=== PATIENT | female | born 1960 | race Caucasian/White ===

== ENCOUNTER 2016-08-22 13:32 | Outpatient (CLI) | payer BC ==
[~2016-08-22 13:32] MED LIST changes: -ACET50TAOT PO; +ACETAMINOPHEN TAB 650MG DOSE (2X325MG) PO SCH; -FERR325T3 PO; -LIDO2.5C15 EXT; -PEG6SYR SC; -PROC10TA PO; -PROC1SP PR; -VITA-130 PO; -VITMTA PO; +diphenhydrAMINE 25 MG CAP PO SCH
[2016-08-22] MEDS ORDERED: SODIUM CHLORIDE 0.9% INJ 10 ML SYR IV PRN (20:45)
[2016-08-23] MEDS ORDERED: SODIUM CHLORIDE 0.9% INJ 10 ML SYR IV SCH (09:00)
== END 2016-08-22 21:17 | disposition home or self-care (01) ==
LOC: M OPCLI5PR 13:32 → M MS5PR 13:34 → M OPCLI5PR 21:17
PROVIDERS: ATTEND Internal Medicine Medical Oncology
DX: C50.919 Malignant neoplasm of unspecified site of unspecified female breast (principal)
CPT/HCPCS: 36430; P9016

== ENCOUNTER → 2016-08-22 | Outpatient (REF) | payer BC ==
[~2016-08-22] MED LIST: ACET50TAOT PO; Compazine; FERR325T3 PO; LEVO137T2 PO; LEXA1TAB PO; LIDO2.5C15 EXT; PEG6SYR SC; PROC10TA PO; PROC1SP PR; VITA-130 PO; VITMTA PO; XANA0.25 PO; ZOFR20TA PO
== END ==
LOC: M LAB REF 13:02
PROVIDERS: ATTEND Internal Medicine Medical Oncology
DX: C50.919 Malignant neoplasm of unspecified site of unspecified female breast (principal)

== ENCOUNTER 2016-08-30 14:39 | Observation (INO) | payer BC ==
[~2016-08-30] VITALS: Ht 154.9 cm; Wt 67.6 kg
[~2016-08-30 14:39] MED LIST changes: -ACETAMINOPHEN TAB 650MG DOSE (2X325MG) PO SCH; -diphenhydrAMINE 25 MG CAP PO SCH
--- NOTE | 2016-08-30 15:49 | REP ---
Clinical: Epigastric and abdominal pain. Technique: Upright view of the chest with supine and upright views of the abdomen and pelvis. Findings: Frontal upright view of the chest demonstrates no acute cardiopulmonary process or free air below the diaphragm to suspect pneumoperitoneum. Supine and upright views of the abdomen and pelvis demonstrate nonspecific bowel gas pattern without obstruction or perforation. No organomegaly. No abnormal calcifications. Skeletal structures normal for age. Prior cholecystectomy. Impression: Nonspecific bowel gas pattern. Signed by Malachi Abernathy MD 08/30/2016 03:40 P
[2016-08-30 16:02] LABS: LYMPH % 4.3 % (24.0-44.0); MEAN CORPUSCULAR HEMOGLOBIN 31.8 pg (27.0-33.0); MEAN CORPUSCULAR HGB CONC 34.8 g/dl (32.0-36.5); MEAN CORPUSCULAR VOLUME 91.4 fl (80.0-96.0); NEUTROPHILS % 87.4 % (36.0-66.0); PLATELET COUNT, AUTOMATED 161 k/mm3 (150-450); WHITE BLOOD COUNT 15.7 K/mm3 (4.0-10.0)
[2016-08-30 16:03] LABS: BASO # 0.1 K/mm3 (0.0-0.2); BASO % 0.4 % (0.0-1.0); DIFF SLIDE NUMBER 290; EOS % 0.2 % (0.0-3.0); LARGE UNSTAINED CELL # 0.3 K/mm3 (0.0-0.4); LARGE UNSTAINED CELL % 2.2 % (0.0-4.0); LYMPH # 0.7 K/mm3 (1.5-4.5); MONO # 0.9 K/mm3 (0.0-0.8); MONO % 5.7 % (0.0-5.0); NEUTROPHILS # 13.7 K/mm3 (1.8-7.7)
[2016-08-30 16:15] LABS: ALBUMIN 3.8 GM/DL (3.2-5.2); ALBUMIN/GLOBULIN RATIO 1.41 (1.00-1.93); ALKALINE PHOSPHATASE 151 U/L (45-117); ALT/SGPT 26 U/L (12-78); ANION GAP 9 MEQ/L (8-16); AST/SGOT 14 U/L (15-37); BILIRUBIN,DIRECT 0.1 MG/DL (0.0-0.2); BILIRUBIN,TOTAL 0.5 MG/DL (0.2-1.0); BLOOD UREA NITROGEN 10 MG/DL (7-18); CALCIUM LEVEL 8.7 MG/DL (8.5-10.1); CARBON DIOXIDE LEVEL 28 MEQ/L (21-32); CHLORIDE LEVEL 105 MEQ/L (98-107); CREATININE FOR GFR 0.62 MG/DL (0.55-1.02); GLOMERULAR FILTRATION RATE > 60.0 (>51); GLUCOSE, FASTING 81 MG/DL (70-105); POTASSIUM SERUM 3.7 MEQ/L (3.5-5.1); SODIUM LEVEL 142 MEQ/L (136-145); TOTAL PROTEIN 6.5 GM/DL (6.4-8.2)
[2016-08-30] MEDS ORDERED: GASTROGRAFIN SOLUTION 30ML (Q9963) As Ordered ONE (17:14)
[2016-08-30] MEDS ORDERED: ISOVUE-370 76% 100ML VIAL (Q9967) As Ordered ONE (18:52)
[2016-08-30] MEDS ORDERED: PERCOCET 5MG/325MG TAB As Ordered ONE (20:10)
[2016-08-30 22:50] LABS: AMYLASE 34 U/L (25-115)
[2016-08-30] MEDS ORDERED: PEG6SYR SC (23:42)
[2016-08-30] MEDS ORDERED: PROC10TA PO (23:42)
[2016-08-30] MEDS ORDERED: ACET50TAOT PO (23:42)
[2016-08-30] MEDS ORDERED: VITMTA PO (23:42)
[2016-08-30] MEDS ORDERED: VITA-130 PO (23:42)
[2016-08-30] MEDS ORDERED: LIDO2.5C15 EXT (23:45)
[2016-08-31] MEDS ORDERED: PERCOCET 5MG/325MG TAB As Ordered ONE ×2 (00:24→02:29)
[2016-08-31] MEDS ORDERED: ACETAMINOPHEN TAB 650MG DOSE (2X325MG) PO PRN (00:30)
[2016-08-31] MEDS ORDERED: ONDANSETRON 4MG/2ML VIAL (J2405) IV PRN (00:30)
[2016-08-31] MEDS ORDERED: PERCOCET 5MG/325MG TAB PO PRN (00:30)
--- NOTE | 2016-08-31 01:38 | HPEPDOC ---
Medical History and Physical Date of Admission Aug 30, 2016 at 23:43 History and Physical PRIMARY CARE PROVIDER: Dr. Jacques CHIEF COMPLAINT: Abdominal pain HISTORY OF PRESENT ILLNESS: Patient is a 56-year-old female with past medical history significant for breast cancer, hemorrhoids who presents to the emergency department with chief complaint of abdominal pain. Patient says that her pain began again last Monday. Patient says that her pain starts in her left upper quadrant and then spreads down through the remainder of her abdomen. She is complaining of nausea without vomiting. She is also complaining of right red blood per rectum. She does have a history of hemorrhoids. She has been having bleeding for the last 3 days. She denies any diarrhea or constipation. Her last bowel movement was this morning. Overall she says that she just does not feel well. ALLERGIES: Dilaudid (vomiting), Demerol (vomiting), morphine (migraines) PAST MEDICAL HISTORY: Breast cancer, myocardial infarction, carpal tunnel syndrome, hemorrhoids, irritable bowel syndrome PAST SURGICAL HISTORY: Cholecystectomy, carpal tunnel release, left sided neck fusion, mastectomy, tonsillectomy, [id number] insertion SOCIAL HISTORY: Patient denies any alcohol or tobacco or recreational drug use. Patient has been out of work for the last 3-1/2 months due to chemotherapy. 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 She lives at home with her FAMILY HISTORY: She denies any recent sick contacts CODE STATUS: Full code REVIEW OF SYSTEMS: Constitutional: Positive for recent weight loss of 40 pounds, denies fevers, chills, night sweats HEENT: Head: Positive for lightheadedness and headaches today. Eyes: denies blurry vision, double vision. Ears: denies hearing loss, tinnitus, ear pain. Nose: Positive for congestion, rhinorrhea (patient attributes this to chemotherapy). Throat: denies sore throat, cough, difficulty swallowing Cardiovascular: denies chest discomfort/pain, palpitations Respiratory: denies shortness of breath, difficulty breathing Gastrointestinal: Positive for abdominal pain, nausea, bright red blood per rectum. Denies vomiting, diarrhea, constipation : denies dysuria, hematuria Musculoskeletal: Positive for diffuse musculoskeletal pain, sternal pain Neurological: Positive for tingling in fingertips Lymphatics: denies palpable lymph nodes or swollen glands Integumentary: Positive for pinpoint sores throughout body (new since starting chemotherapy) Endocrine: denies polyuria, polydipsia. PHYSICAL EXAMINATION: Vitals: Temperature 98.6, pulse 91, respiratory rate 18, blood pressure 119/60, pulse ox 97% on room air General: Patient awake, alert and oriented, verbal and able to answer questions appropriately. She does not appear to be in any acute distress HEENT: Head: normocephalic, atraumatic. Eyes: pupils equally reactive to light , conjunctiva are pink, sclera are nonicteric. Throat: buccal mucosa is pink and moist with no lesions in the oropharynx Respiratory: clear to auscultation bilaterally with no wheezes, rales, or rhonchi. Cardiovascular: regular rate and rhythm, with no murmurs, rubs or gallops. Abdomen: Left lower quadrant tenderness to palpation with rebound tenderness, soft, no masses to palpation Rectal: External hemorrhoids present, tenderness on digital palpation, Hemoccult positive Extremities: 5/5 strength in upper and lower extremities bilaterally, no swelling in either lower extremity bilaterally Neurological: sensation intact and symmetrical in upper and lower extremities bilaterally Lymphatics: no palpable lymph nodes, swollen glands Vascular: Radial pulses palpable and symmetrical LABORATORY DATA: CBC: White blood cells 15.7, H&H 9.5/27.3, platelets 161 Chemistry: Sodium 142, potassium 3.7, chloride 105, carbon dioxide 28, BUN 10, creatinine 0.62, glucose 81, calcium 8.7 Liver profile: AST 14, ALT 26, alkaline phosphatase 151, total protein 6.5, albumin 3.8 Amylase 34 Lipase 82 Urine analysis: Color yellow, appearance clear, pH 7.0, specific gravity 1.060, urobilinogen 0.2, 1 white blood cell, 2 red blood cells. Negative for all of the following: Protein, glucose, ketones, blood, nitrites, bilirubin, leukocyte esterase, bacteria, squamous epithelial cells MICROBOIOLOGY: Urine culture pending RADIOLOGY: Abdominal x-ray: Nonspecific bowel gas pattern Abdominal CT: No acute abdominal or pelvic pathology. No free fluid ASSESSMENT: Patient is a 56-year-old female with abdominal pain and bleeding hemorrhoids. Patient will be admitted for fluid rehydration, pain management. PLAN: #1: Abdominal pain: Admit patient to [facility] under care of Dr. Jacques. Orders placed for oxycodone with acetaminophen 1-2 tabs every 6 hours as needed , Zofran 4 mg IV every 6 hours when necessary, normal saline at rate of 100 mL/ hr #2: External hemorrhoids: Order placed for Proctofoam per rectum twice a day. Patient was Hemoccult positive, is currently anemic. We will check hemoglobin and hematocrit every 6 hours #3: Anxiety and depression: Orders placed for home dose of Xanax 0.25 mg by mouth daily at bedtime, Lexapro 10 mg by mouth daily #4: Hypothyroidism: Order placed for home dose of Synthroid is 0.137 mg by mouth daily #5: DVT prophylaxis: Patient with bleeding external hemorrhoids, anemia, order placed for mechanical prophylaxis My preceptor for this patient encounter was physically present in the building during the encounter and was fully available. As needed, all aspects of the patient interview, examination, medical decision making process, and medical care plan development were reviewed and approved by the preceptor. Preceptor is aware and concurs with the plan as stated in the body of this note and will attest to such by his/her cosignature. Attending Note: I have independently examined this patient and all aspects of the exam and treatment decisions have been discussed with the resident. A member of the hospitalist staff will continue to follow this patient through discharge. Vital Signs Temperature 98.6, pulse 91, respiratory rate 18, blood pressure 119/60, pulse ox 97% on room air Home Medications Scheduled (Lidocaine/Prilocaine 2.5-2.5 %) 1 Cre Cre 1 CRE EXT 2XW APPLIES AROUND ACCESS PORT; MONDAYS AND THURSDAYS Alprazolam (Xanax) 0.25 Mg Tab 0.25 MG PO QHS Ascorbic Acid (Vitamin C) 500 Mg Tab 500 MG PO DAILY Escitalopram Oxalate (Lexapro) 10 Mg Tab 10 MG PO DAILY Levothyroxine Sodium (Synthroid) 137 Mcg Tab 137 MCG PO DAILY Multivitamins *[facility] STOCKED* (Thera M Plus *[facility] STOCKED*) 1 Tab Tab 1 TAB PO DAILY Pegfilgastrim (Neulasta) 6 Mg/0.6 Ml Inj 6 MG SC Q2WK Scheduled PRN Acetaminophen (Acetaminophen) 500 Mg Tab 1,000 MG PO Q6H PRN PRN PAIN Prochlorperazine Maleate (Prochlorperazine Maleate) 10 Mg Tab 10 MG PO QID PRN PRN NAUSEA Allergies Coded Allergies: Hydromorphone (Unverified Adverse Reaction, Mild, VOMITING, 07/04/16) Meperidine (Unverified Adverse Reaction, Mild, VOMITING, 07/04/16) Morphine (Unverified Adverse Reaction, Mild, VOMITING, 07/04/16) KATE MIRELES DO Aug 31, 2016 01:38 AARON SANTIAGO DO Aug 31, 2016 19:18
[2016-08-31] MEDS ORDERED: PRAMOXINE 1% RECTAL FOAM 15 GM CAN PR PRN (01:45)
--- NOTE | 2016-08-31 03:34 | EDDOCDS ---
Physician Documentation [facility] Name: Olivia Elise Age: 56 yrs Sex: Female : 1960 Arrival Date: 08/30/2016 Time: 14:39 Bed 6 Private MD: [facility] Disposition: 08/30/16 23:23 Hospitalization ordered by Hector Khalil for Inpatient Admission. Preliminary diagnosis are Left sided colitis with rectal bleeding, Anemia in neoplastic disease. - Bed requested for 4 [place] (Former[facility]). - Status is Inpatient Admission. alice - Condition is Stable. - Problem is an ongoing problem. - Symptoms are unchanged. HPI: 08/30 15:31 This 56 yrs old Female presents to ER via Walkin/Carried/Asstd with pc complaints of Abdominal Pain. 15:31 The history is obtained from the patient. She has been feeling bloated, with rectal pc pain and aggravation of her chronic hemorrhoids with intermittent bleeding, for 4-5 days. She has intermittent abdominal cramping that becomes severe but does resolve completely. She says she has had small bowel movements but denies constipation and diarrhea. She had her second course of Chemotherapy last week and has felt run down since. She was seen at the Oncology clinic today and had blood work, which is reportedly normal. They did not exam her abdomen or do a rectal exam. She denies any Resp or symptoms, denies fevers or chills. She had Neulasta last week. The patient has not experienced similar symptoms in the past. The patient has been recently seen by an oncologist. Historical: - Allergies: Dilaudid (Vomit); Demerol (Vomit); Morphine (migraines); - Home Meds: 1. Synthroid 137 mcg Oral tab 1 tab once daily (Last dose: 08/30/2016 08:15) 2. Lexapro 10 mg Oral tab 1 tab once daily (Last dose: 08/30/2016 08:15) 3. Xanax 0.25 mg Oral tab hs 4. multivitamin Oral liqd 1 tablet daily 5. Vitamin C 500 mg Oral tab daily 6. Tylenol 500mg Oral prn (Last dose: 08/29/2016) - PMHx: breast cancer; blood transfusions; Myocardial infarction; Carpal Tunnel Syndrome; Hemorrhoids; Irritable bowel syndrome; - PSHx: Cholecystectomy; Carpal Tunnel Repair- Bilateral; neck fusion left sided; Mastectomy- Bilateral; Tonsillectomy; [id number]; - The history from nurses notes was reviewed: and elements of the historical information I have obtained differs from that reported to nursing. - Social history: Smoking status: Patient states former smoker of tobacco. No barriers to communication noted, The patient speaks fluent Amharic, Speaks appropriately for age. - : The pt / caregiver states he / she is not on anticoagulants. Home medication list is obtained from the patient. - Hospitalizations: : No recent hospitalization is reported. - Exposure Risk Screening:: None identified. - Immunization history:: All immunizations up-to-date. - Family history: Not pertinent. - Social history:: the patient is a non-smoker, the patient drinks alcohol, socially. ROS: 15:35 All systems are negative except as listed. pc Exam: 15:35 General Appearance: no acute distress, alert. pc 15:35 EENT: normal eye inspection, ears, nose and throat normal, pharynx normal, mucous membranes moist 15:35 Neck: The exam reveals no acute abnormalities. ROM is normal and painless. No nuchal rigidity is noted.. 15:35 Respiratory: no respiratory distress, normal breath sounds, chest non-tender, Inf[employer] accessed MAP AND CHART MOUNTER . 15:35 CVS: regular pulse rate, regular rhythm, normal S1 and S2, no murmurs, strong peripheral pulses, normal capillary refill. 15:35 Abdomen: no masses appreciated, no hernias palpated with/without gravity or Valsalva distended, mild tenderness in all quadrants, without rebound, voluntary guarding is not appreciated, involuntary guarding is not appreciated, tympanic to percussion Rectal exam: hemorrhoids are present, external, not painful, not inflammed. 15:35 Back: normal inspection. 15:35 Skin: skin color is normal, warm, dry. 15:35 Extremities: The extremities have a grossly normal appearance, are non-tender, without acute ROM abnormalities. 15:35 Neuro: oriented x 3, cranial nerves normal as tested, no motor deficits, no sensory deficits. 15:35 Psych: normal mood. Vital Signs: 14:41 BP 122 / 60; Pulse 92; Resp 18; Temp 98.9(O); Pulse Ox 99% on R/A; Weight 67.59 kg / ct3 149.01 lbs (R); Height 5 ft. 1 in. (154.94 cm) (R); Pain 5/10; 18:59 BP 119 / 60; Pulse 91; Resp 18; Temp 98.6(O); Pulse Ox 97% on R/A; Pain 7/10; dsf 08/31 03:23 BP 100 / 50; Pulse 90; Resp 18; Temp 98.7; Pulse Ox 95% on R/A; Pain 6/10; jul 18 14:41 Body Mass Index 28.15 (67.59 kg, 154.94 cm) ct3 MDM: 08/30 15:15 heparin 100units/mL flush (infusaport) 5 ml IVP once; flush first with 10mL of NS pc followed by heparin ordered. 15:15 Access Infusaport ordered. pc 15:16 Abdomen, Flat\E\Upright,PA Chest Ordered. EDMS 15:16 CBC with Diff Ordered. EDMS 15:16 MED Profile Ordered. EDMS 15:16 Liver Profile Ordered. EDMS 15:35 Differential Diagnosis: abdominal cramping, rectal pain with bleeding, on Chemotherapy, pc Hx of IBS. Plan: labs, imaging. 15:42 Financial registration complete. b 16:10 [facility] [place] was scanned into [employer] and attached to record. gjb 16:48 CBC with Diff Reviewed. pc 16:48 Liver Profile Reviewed. pc 16:48 MED Profile Reviewed. pc 16:48 Abdomen, Flat\E\Upright,PA Chest Reviewed. pc 16:50 CT ABD & PELVIS: IV and Oral Contrast Ordered. EDMS 17:42 Diatrizoate Meglumine & Sodium Liquid 10 ml PO once; mix in 290cc of water 2nd cup 1800 dsf ordered. 17:42 Diatrizoate Meglumine & Sodium Liquid 10 ml PO once; mix in 290cc of water 2nd cup 1800 dsf ordered. 20:04 oxyCODONE-acetaminophen 5 mg-325 mg 1 tabs PO once ordered. cs11 21:22 Urinalysis Ordered. EDMS 21:22 Urine Culture Ordered. EDMS 22:58 Liver Profile Reviewed. cs11 22:58 Urinalysis Reviewed. cs11 22:58 MED Profile Reviewed. cs11 22:58 AMYLASE Reviewed. cs11 22:58 LIPASE Reviewed. cs11 23:08 BED REQUEST+ADM ordered. EDMS 23:20 ED course: CT scan was normal. urinanalysis normal. amylase/lipase normal.. ED course: cs11 family doesn't want to take pt. home with rectal bleeding and abdominal pain. I did discuss with Dr Khalil who was gracious to see the pt.. 23:45 Admission / Observation Status ordered. EDMS 08/31 00:20 REGULAR DIET ordered. EDMS 00:31 HEMOGLOBIN & HEMATOCRIT Ordered. EDMS 00:31 HEMOGLOBIN & HEMATOCRIT Ordered. EDMS 00:31 HEMOGLOBIN & HEMATOCRIT Ordered. EDMS 00:31 HEMOGLOBIN & HEMATOCRIT Ordered. EDMS 00:50 oxyCODONE-acetaminophen 5 mg-325 mg 1 tabs PO once; admission order ordered. cf2 03:05 oxyCODONE-acetaminophen 5 mg-325 mg 2 tabs PO once; ADMISSION ORDERS ordered. cf2 Administered Medications: 08/30 17:30 Drug: Diatrizoate Meglumine & Sodium 10 ml [diatrizoate meglumine and diat.sodium 66 dsf %-10 % oral solution (10 mL)] Route: PO; 21:35 Follow up: Response: Pain is decreased cf2 18:00 Drug: Diatrizoate Meglumine & Sodium 10 ml [diatrizoate meglumine and diat.sodium 66 dsf %-10 % oral solution (10 mL)] Route: PO; 21:35 Follow up: Response: Pain is decreased cf2 20:14 Drug: oxyCODONE-acetaminophen 1 tabs [oxycodone-acetaminophen 5 mg-325 mg tablet (1 cf2 tabs)] Route: PO; 21:35 Follow up: Response: Pain is decreased cf2 08/31 00:50 Drug: oxyCODONE-acetaminophen 1 tabs [oxycodone-acetaminophen 5 mg-325 mg tablet (1 cf2 tabs)] Route: PO; 03:05 Drug: oxyCODONE-acetaminophen 2 tabs [oxycodone-acetaminophen 5 mg-325 mg tablet (2 cf2 tabs)] Route: PO; Signatures: Dispatcher [employer] EDNE Antelmo Gandhi MD MD pc Michelson, Staci, RN RN srm Newman, Jill New, RN RN jan Lopresti, Mary-Elizabeth, Nurse Practitioner Manager Unit ml3 Cherise Johnson RN RN dsf Schiff, Craig, DO DO cs11 Cristal Rodriguez ChristinaRN RN cf2 The chart was reviewed and I authenticate all verbal orders and agree with the evaluation and treatment provided.Corrections: (The following items were deleted from the chart) 08/30 22:34 22:28 AMYLASE+LAB ordered. EDMS EDMS : 22:28 LIPASE+LAB ordered. EDMS EDMS Attachments: 16:10 [facility] [place] Agreement smiley [email or web address]
--- NOTE | 2016-08-31 03:34 | EDDOCDS ---
Nurse's Notes [facility] Name: Olivia Elise Age: 56 yrs Sex: Female : 1960 Arrival Date: 08/30/2016 Time: 14:39 Bed 6 Private MD: Eduard [facility] Diagnosis: Left sided colitis with rectal bleeding;Anemia in neoplastic disease Presentation: 08/30 14:56 Presenting complaint: Patient states: all over abdominal pain for 3 days. chemo for srm breast cancer. bone pain, neck pain, rectal bleeding. nausea no vomiting. Presenting complaint: Patient states: sent from dr us office. Left upper quad pain. Adult Sepsis Screening: The patient does not have new or worsening altered mentation. Patient's respiratory rate is less than 22. Systolic blood pressure is greater than 100. Patient has a qSOFA score of 0- Negative Sepsis Screen. Suicide/Homicide risk assessment- the patient denies having any suicidal and/or homicidal ideations and does not present with any other emotional, behavioral or mental health complaints. 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 Transition of care: patient was received from a primary care office; dr us. 14:56 Acuity: DEREK Level 3 [facility] 14:56 Method Of Arrival: Walkin/Carried/Asstd srm Triage Assessment: 15:01 General: Appears in no apparent distress, Behavior is appropriate for age, cooperative. srm Pain: Pain currently is 5 out of 10 on a pain scale. GI: Reports lower abdominal pain, upper abdominal pain. 15:01 Pt Declines HIV testing. srm Historical: - Allergies: Dilaudid (Vomit); Demerol (Vomit); Morphine (migraines); - Home Meds: 1. Synthroid 137 mcg Oral tab 1 tab once daily (Last dose: 08/30/2016 08:15) 2. Lexapro 10 mg Oral tab 1 tab once daily (Last dose: 08/30/2016 08:15) 3. Xanax 0.25 mg Oral tab hs 4. multivitamin Oral liqd 1 tablet daily 5. Vitamin C 500 mg Oral tab daily 6. Tylenol 500mg Oral prn (Last dose: 08/29/2016) - PMHx: breast cancer; blood transfusions; Myocardial infarction; Carpal Tunnel Syndrome; Hemorrhoids; Irritable bowel syndrome; - PSHx: Cholecystectomy; Carpal Tunnel Repair- Bilateral; neck fusion left sided; Mastectomy- Bilateral; Tonsillectomy; Garmi-s-knsz; - The history from nurses notes was reviewed: and elements of the historical information I have obtained differs from that reported to nursing. - Social history: Smoking status: Patient states former smoker of tobacco. No barriers to communication noted, The patient speaks fluent Canadian, Speaks appropriately for age. - : The pt / caregiver states he / she is not on anticoagulants. Home medication list is obtained from the patient. - Hospitalizations: : No recent hospitalization is reported. - Exposure Risk Screening:: None identified. - Immunization history:: All immunizations up-to-date. - Family history: Not pertinent. - Social history:: the patient is a non-smoker, the patient drinks alcohol, socially. Assessment: 15:16 Adult Sepsis Screening: The patient does not have new or worsening altered mentation. dsf Patient's respiratory rate is less than 22. Systolic blood pressure is greater than 100. Patient has a qSOFA score of 0- Negative Sepsis Screen. General: Appears in no apparent distress, Behavior is appropriate for age, cooperative. Pain: Location: right upper quadrant, left upper quadrant, right lower quadrant and left lower quadrant Pain currently is 5 out of 10 on a pain scale. Quality of pain is described as squeezing. Neurological: Level of Consciousness is awake, alert. Cardiovascular: Capillary refill < 3 seconds Heart tones S1 S2 present. Respiratory: Airway is patent Respiratory effort is even, unlabored, Respiratory pattern is regular, symmetrical, Breath sounds are clear bilaterally. GI: Abdomen is non- distended Bowel sounds present X 4 quads. Abd is soft X 4 quads Abd is tender to palpation X 4 quads. Reports nausea. Derm: Skin is pink, warm & dry. 15:59 General: Appears in no apparent distress, Behavior is appropriate for age. dsf Neurological: Level of Consciousness is awake, alert. Cardiovascular: Capillary refill < 3 seconds. Respiratory: Airway is patent Respiratory effort is even, unlabored, Respiratory pattern is regular, symmetrical. Derm: Skin is pink, warm & dry. 17:06 General: Appears in no apparent distress, Behavior is appropriate for age, cooperative. dsf Neurological: Level of Consciousness is awake, alert. Cardiovascular: Capillary refill < 3 seconds. Respiratory: Airway is patent Respiratory effort is even, unlabored, Respiratory pattern is regular, symmetrical. Derm: Skin is pink, warm & dry. 18:06 Adult Sepsis Screening: The patient does not have new or worsening altered mentation. dsf Patient's respiratory rate is less than 22. Systolic blood pressure is greater than 100. Patient has a qSOFA score of 0- Negative Sepsis Screen. General: Appears in no apparent distress, Behavior is appropriate for age, cooperative. Neurological: Level of Consciousness is awake, alert. Cardiovascular: Capillary refill < 3 seconds. Respiratory: Airway is patent Respiratory effort is even, unlabored, Respiratory pattern is regular, symmetrical. Derm: Skin is pink, warm & dry. Vital Signs: 14:41 BP 122 / 60; Pulse 92; Resp 18; Temp 98.9(O); Pulse Ox 99% on R/A; Weight 67.59 kg (R); ct3 Height 5 ft. 1 in. (154.94 cm) (R); Pain 5/10; 18:59 BP 119 / 60; Pulse 91; Resp 18; Temp 98.6(O); Pulse Ox 97% on R/A; Pain 7/10; dsf 08/31 03:23 BP 100 / 50; Pulse 90; Resp 18; Temp 98.7; Pulse Ox 95% on R/A; Pain 6/10; jul 18 14:41 Body Mass Index 28.15 (67.59 kg, 154.94 cm) ct3 Vitals: 08/30 14:41 Log In Time: August 30, 2016 at 14:39. RN notified that patient meets Red Flag ct3 criteria. ED Course: 14:40 Patient visited by Sarah Evans PCA. ct3 14:40 Patient moved to Waiting ct3 14:41 [facility] is Private Physician. ct3 14:44 Patient moved to Pre RCE ct3 14:58 Triage Initiated srm 15:02 Patient moved to 6 srm 15:04 Antelmo Gandhi MD is Attending Physician. pc 15:04 Patient visited by Antelmo Gandhi MD. pc 15:17 Patient visited by Cherise Johnson,MARIO. dsf 15:17 Accessed Infusaport to right upper chest accessed by oncology nurses . dsf 15:59 Patient visited by Cherise Johnson,MARIO. dsf 16:06 Abdomen, Flat\E\Upright,PA Chest Returned. EDMS 16:10 [facility] Payment Agreement was scanned into [employer] and attached to record. gjb 17:07 Patient visited by Cherise Johnson RN. dsf 18:12 Patient visited by Cherise Johnson RN. dsf 18:58 Attending Physician role handed off by Antelmo Gandhi MD cs11 18:58 Charlie Dang DO is Attending Physician. cs11 19:06 Jolene Araujo RN is Primary Nurse. cf2 19:06 Patient visited by Jolene Araujo RN. cf2 19:09 Patient visited by Bo Cha PCA. kb5 20:06 Patient visited by Jolene Araujo RN. cf2 21:00 Patient visited by Jolene Araujo RN. cf2 21:35 Patient visited by Jolene Araujo RN. cf2 22:22 Patient visited by Jolene Araujo RN. cf2 22:24 Patient visited by Jolene Araujo RN. cf2 22:29 Urine Culture Sent. jmv 22:29 Urinalysis Sent. jmv 23:23 Hector Khalil DO is Hospitalizing Provider. cs11 08/31 00:42 Patient visited by Jolene Araujo RN. cf2 00:49 Patient visited by Jolene Araujo RN. cf2 Administered Medications: 08/30 17:30 Drug: Diatrizoate Meglumine & Sodium 10 ml [diatrizoate meglumine and diat.sodium 66 dsf %-10 % oral solution (10 mL)] Route: PO; 21:35 Follow up: Response: Pain is decreased cf2 18:00 Drug: Diatrizoate Meglumine & Sodium 10 ml [diatrizoate meglumine and diat.sodium 66 dsf %-10 % oral solution (10 mL)] Route: PO; 21:35 Follow up: Response: Pain is decreased cf2 20:14 Drug: oxyCODONE-acetaminophen 1 tabs [oxycodone-acetaminophen 5 mg-325 mg tablet (1 cf2 tabs)] Route: PO; 21:35 Follow up: Response: Pain is decreased cf2 08/31 00:50 Drug: oxyCODONE-acetaminophen 1 tabs [oxycodone-acetaminophen 5 mg-325 mg tablet (1 cf2 tabs)] Route: PO; 03:05 Drug: oxyCODONE-acetaminophen 2 tabs [oxycodone-acetaminophen 5 mg-325 mg tablet (2 cf2 tabs)] Route: PO; Intake: 08/30 18:12 PO: 300.00ml (Contrast); Total: 300.00ml. dsf Order Results: Lab Order: CBC with Diff; SPEC'M 08/30/16 15:27 Test: WHITE BLOOD COUNT; Value: 15.7; Range: 4.0-10.0; Abnormal: Above high normal; Units: K/mm3; Status: F Test: RED BLOOD COUNT; Value: 2.99; Range: 4.00-5.40; Abnormal: Below low normal; Units: M/mm3; Status: F Test: HEMOGLOBIN; Value: 9.5; Range: 12.0-16.0; Abnormal: Below low normal; Units: g/dl; Status: F Test: HEMATOCRIT; Value: 27.3; Range: 36.0-47.0; Abnormal: Below low normal; Units: %; Status: F Test: MEAN CORPUSCULAR VOLUME; Value: 91.4; Range: 80.0-96.0; Units: fl; Status: F Test: MEAN CORPUSCULAR HEMOGLOBIN; Value: 31.8; Range: 27.0-33.0; Units: pg; Status: F Test: MEAN CORPUSCULAR HGB CONC; Value: 34.8; Range: 32.0-36.5; Units: g/dl; Status: F Test: RED CELL DISTRIBUTION WIDTH; Value: 18.0; Range: 11.5-14.5; Abnormal: Above high normal; Units: %; Status: F Test: PLATELET COUNT, AUTOMATED; Value: 161; Range: 150-450; Units: k/mm3; Status: F Test: NEUTROPHILS %; Value: 87.4; Range: 36.0-66.0; Abnormal: Above high normal; Units: %; Status: F Test: LYMPH %; Value: 4.3; Range: 24.0-44.0; Abnormal: Below low normal; Units: %; Status: F Test: MONO %; Value: 5.7; Range: 0.0-5.0; Abnormal: Above high normal; Units: %; Status: F Test: EOS %; Value: 0.2; Range: 0.0-3.0; Units: %; Status: F Test: BASO %; Value: 0.4; Range: 0.0-1.0; Units: %; Status: F Test: LARGE UNSTAINED CELL %; Value: 2.2; Range: 0.0-4.0; Units: %; Status: F Test: NEUTROPHILS #; Value: 13.7; Range: 1.8-7.7; Abnormal: Above high normal; Units: K/mm3; Status: F Test: LYMPH #; Value: 0.7; Range: 1.5-4.5; Abnormal: Below low normal; Units: K/mm3; Status: F Test: MONO #; Value: 0.9; Range: 0.0-0.8; Abnormal: Above high normal; Units: K/mm3; Status: F Test: EOS #; Value: 0.0; Range: 0.0-0.50; Units: K/mm3; Status: F Test: BASO #; Value: 0.1; Range: 0.0-0.2; Units: K/mm3; Status: F Test: LARGE UNSTAINED CELL #; Value: 0.3; Range: 0.0-0.4; Units: K/mm3; Status: F Lab Order: MED Profile; [facility]' 08/30/16 15:27 Test: GLUCOSE, FASTING; Value: 81; Range: 70-105; Units: MG/DL; Status: F Test: BLOOD UREA NITROGEN; Value: 10; Range: 7-18; Units: MG/DL; Status: F Test: CREATININE FOR GFR; Value: 0.62; Range: 0.55-1.02; Units: MG/DL; Status: F Test: GLOMERULAR FILTRATION RATE; Value: > 60.0; Range: >51; Status: F Test: SODIUM LEVEL; Value: 142; Range: 136-145; Units: MEQ/L; Status: F Test: POTASSIUM SERUM; Value: 3.7; Range: 3.5-5.1; Units: MEQ/L; Status: F Test: CHLORIDE LEVEL; Value: 105; Range: 98-107; Units: MEQ/L; Status: F Test: CARBON DIOXIDE LEVEL; Value: 28; Range: 21-32; Units: MEQ/L; Status: F Test: ANION GAP; Value: 9; Range: 8-16; Units: MEQ/L; Status: F Test: CALCIUM LEVEL; Value: 8.7; Range: 8.5-10.1; Units: MG/DL; Status: F Test Note: ; Units are mL/min/1.73 m2 Chronic Kidney Disease Staging per NKF: Stage I & II GFR >=60 Normal to Mildly Decreased Stage III GFR 30-59 Moderately Decreased Stage IV GFR 15-29 Severely Decreased Stage V GFR <15 Very Little GFR Left ESRD GFR <15 on MATTRESS STUFFER Lab Order: Liver Profile; SPEC08/30/16 15:27 Test: AST/SGOT; Value: 14; Range: 15-37; Abnormal: Below low normal; Units: U/L; Status: F Test: ALT/SGPT; Value: 26; Range: 12-78; Units: U/L; Status: F Test: ALKALINE PHOSPHATASE; Value: 151; Range: 45-117; Abnormal: Above high normal; Units: U/L; Status: F Test: BILIRUBIN,TOTAL; Value: 0.5; Range: 0.2-1.0; Units: MG/DL; Status: F Test: BILIRUBIN,DIRECT; Value: 0.1; Range: 0.0-0.2; Units: MG/DL; Status: F Test: TOTAL PROTEIN; Value: 6.5; Range: 6.4-8.2; Units: GM/DL; Status: F Test: ALBUMIN; Value: 3.8; Range: 3.2-5.2; Units: GM/DL; Status: F Test: ALBUMIN/GLOBULIN RATIO; Value: 1.41; Range: 1.00-1.93; Status: F Lab Order: Urinalysis; SPEC08/30/16 22:28 Test: APPEARANCE, URINE; Value: CLEAR; Range: CLEAR; Status: F Test: COLOR, URINE; Value: YELLOW; Range: YELLOW; Status: F Test: PH,URINE; Value: 7.0; Range: 5.0-9.0; Units: UNITS; Status: F Test: SPECIFIC GRAVITY URINE AUTO; Value: >1.060; Range: 1.002-1.035; Abnormal: Above high normal; Status: F Test: PROTEIN, URINE AUTO; Value: NEGATIVE; Range: NEGATIVE; Units: mg/dL; Status: F Test: GLUCOSE, URINE (UA) AUTO; Value: NEGATIVE; Range: NEGATIVE; Units: mg/dL; Status: F Test: KETONE, URINE AUTO; Value: NEGATIVE; Range: NEGATIVE; Units: mg/dL; Status: F Test: UROBILINOGEN, URINE AUTO; Value: 0.2; Range: 0.0-2.0; Units: mg/dL; Status: F Test: BILIRUBIN, URINE AUTO; Value: NEGATIVE; Range: NEGATIVE; Status: F Test: NITRITE, URINE AUTO; Value: NEGATIVE; Range: NEGATIVE; Status: F Test: LEUKOCYTE ESTERASE, URINE AUTO; Value: NEGATIVE; Range: NEGATIVE; Status: F Test: BLOOD, URINE BLOOD; Value: NEGATIVE; Range: NEGATIVE; Status: F Test: WBC, URINE AUTO; Value: 1; Range: 0-3; Units: /HPF; Status: F Test: RBC, URINE AUTO; Value: 2; Range: 0-3; Units: /HPF; Status: F Test: BACTERIA, URINE AUTO; Value: NEGATIVE; Range: NEGATIVE; Status: F Test: SQUAMOUS EPITHELIAL CELL UR AU; Value: 0; Range: 0-6; Units: /HPF; Status: F Test: HYALINE CAST, URINE AUTO; Value: 0; Range: 0-1; Units: /LPF; Status: F Lab Order: AMYLASE; [facility] 08/30/16 15:27 Test: AMYLASE; Value: 34; Range: 25-115; Units: U/L; Status: F Lab Order: LIPASE; [facility] 08/30/16 15:27 Test: LIPASE; Value: 82; Range: 73-393; Units: U/L; Status: F Lab Order: HEMOGLOBIN & HEMATOCRIT; [facility] 08/31/16 01:05 Test: HEMOGLOBIN; Value: 9.1; Range: 12.0-16.0; Abnormal: Below low normal; Units: g/dl; Status: F Test: HEMATOCRIT; Value: 26.3; Range: 36.0-47.0; Abnormal: Below low normal; Units: %; Status: F Radiology Order: Abdomen, Flat\E\Upright,PA Chest Test: Abdomen, Flat\E\Upright,PA Chest REASON FOR EXAMINATION: Abdomen Pain; Clinical: Epigastric and abdominal pain.; ; Technique: Upright view of the chest with supine and upright views of the; abdomen and pelvis.; ; Findings: Frontal upright view of the chest demonstrates no acute; cardiopulmonary process or free air below the diaphragm to suspect; pneumoperitoneum. Supine and upright views of the abdomen and pelvis demonstrate; nonspecific bowel gas pattern without obstruction or perforation. No; organomegaly. No abnormal calcifications. Skeletal structures normal for age.; Prior cholecystectomy.; ; Impression:; Nonspecific bowel gas pattern.; ; ; Signed by; Malachi Abernathy MD 08/30/2016 03:40 P; Outcome: 23:23 Decision to Hospitalize by Provider. 11 08/31 03:21 Discharge Assessment: patient administered narcotics - yes. Patient was admitted [facility] the [facility] or transferred to another facility. The following High Risk Discharge criteria are identified: None. Admitted to Med/Surg. Condition: unchanged. CT Study completed. Admission hand-off: Report called to william Ratliff RN. Property :Personal belongings accompany Pt. 03:25 Discharge Assessment: Patient awake and alert. obeys commands, Oriented to person, alice place and time. Patient verbalized understanding of disposition instructions. 03:33 Patient left the ED. jul Signatures: Dispatcher [employer] EDMS Antelmo Gandhi MD MD pc Michelson, Staci, Sofía Frausto RN, RN RN jan Bancroft, Kristopher, FABRIC MACHINE OPERATOR FABRIC MACHINE OPERATOR kb5 Sarah Evans, FABRIC MACHINE OPERATOR FABRIC MACHINE OPERATOR ct3 Cherise Johnson RN RN dsf Schiff, Craig, DO DO cs11 Cristal Rodriguez Christina, RN RN Sanju Sparrow, FABRIC MACHINE OPERATOR FABRIC MACHINE OPERATOR jmv Corrections: (The following items were deleted from the chart) 08/30 22:34 22:30 LIPASE+LAB sent. jul EDNH : 22:30 AMYLASE+LAB sent. jul EDNH MTDD
[2016-08-31 04:15] VITALS: BP 114/53
[2016-08-31] MEDS: NS 1,000 ML IV SCH ×2 (05:46→10:16)
[2016-08-31 06:00] VITALS: BP 104/62
[2016-08-31] MEDS: LEVOTHYROXINE 0.137 MG TAB (137MCG) PO SCH (06:52)
--- NOTE | 2016-08-31 08:14 | IPNPDOC ---
Subjective General Date Seen The patient was seen on 08/31/16. Subjective Chief Complaint/HPI The patient is a 56-year-old female admitted with a reason for visit of Abd Pain and rectal bleeding. Events since last encounter Olivia was admitted by the hospitalist service overnight for 4 days of sharp LLQ abdominal pain and bloody bowel movements. Last BM was yesterday afternoon and reportedly filled the toilet with blood. H/H has been stable since admission , and she has not had another BM since admission. Abd pain persists. CT abd/ pelvis w/o acute process. FOBT on admission + for blood. General: Reports: Fatigue, Denies: Chills, Malaise, Night Sweats, Normal Appetite Constitutional: Reports: Fatigue, Weakness (related to chemo- last chemo was 5 days ago) Eyes: Denies: Pain, Vision change ENT: Denies: Dysphagia, Ear Pain, Head Aches Skin: Denies: Breakdown, Lesions, Rash Pulmonary: Denies: Cough, Dyspnea Cardiovascular: Denies: Chest Pain, Lt Headedness, Orthopnea, Palpitations, Paroxysmal Noc. Dyspnea Gastrointestinal: Reports: Abdominal Pain (LLQ), Hematochezia, Nausea, Denies: Constipation, Melena, Vomiting Genitourinary: Denies: Dysuria, Frequency, Incontinence, Retention Hematologic: Denies: Bleeding Excessively, Bruising, Petecchia Musculoskeletal: Reports: Other Symptoms (bone pain, global a/w chemo) Objective Physical Examination General Exam: Positive: Alert, No Acute Distress Eye Exam: Positive: Conjunctiva & lids normal, EOMI, PERRLA, Negative: Sclera icteric ENT Exam: Positive: Atraumatic, Mucous membr. moist/pink, Pharynx Normal Neck Exam: Positive: Supple, Negative: JVD, thyromegaly Chest Exam: Positive: Clear to auscultation, Normal air movement Heart Exam: Positive: Normal S1, Normal S2, Rate Normal, Regular Rhythm, Negative: Murmurs, Rubs Abdomen Exam: Positive: Normal bowel sounds, Soft, Tenderness (LUQ. - rendon/ mcburney), Negative: Hepatospenomegaly Extremity Exam: Positive: Normal pulses, Negative: Cyanosis, Edema Skin Exam: Positive: Nl turgor and temperature, Negative: Breakdown, Rash Assessment /Plan Assessment Olivia is a 56 yo F c known h/o external hemorrhoids, who presents today c 4 days of BRBPR and new-onset left-sided abd pain. H/H has been stable since admission, and she has not yet had a BM. The primary ? at this point is whether her sx are soley related to her hemorrhoids or if further investigation is required for GI sources of acute hemorrhage. Problems Problems: (1) Rectal bleed Status: Acute Response to Treatment: Stable Problem Text: She's had no episodes of bleeding or BM since admission. H/H stable, and CT w/o abnormality. May be soley related to her known hemorrhoids vs other GI source. Will continue to monitor H/H. If she continues to have bloody BM, will consider surgical consult for colonoscopy. Otherwise, she can be worked up as outpt. Of note, she did have a colonoscopy ~ 10 yrs ago that was reportedly WNL. (2) Abdominal pain Status: Acute Problem Text: She has a h/o abdominal pain c chemo, however, this pain is new. Abd exam is WNL aside from mild tenderness on deep palpation of LUQ. No rebound , guarding. Official CT read has not returned yet, however, prelim read mentions no acute process. Did not specifically comment on presence or absence of diverticula. For now will tx symptomatically. Remainder as per "rectal bleeding." (3) External hemorrhoid Status: Chronic Problem Text: For now will tx symptomatically c proctofoam. (4) Anxiety Status: Chronic Problem Text: Continue Lexapro/Xanax (5) Breast CA Status: Chronic Problem Text: Dx 06/01. Undergoing chemotherapy. White count stable, no signs of infxn. Unlikely related to her current complaint. (6) Adult onset hypothyroidism Status: Chronic Response to Treatment: Stable Plan/VTE VTE Prophylaxis Ordered?: Yes (KANNAN/SCDs) VTE Exclusion Pharmacological: Bleeding Risk Plan IVF: Continue Diet: Continue Current Diagnostics: Check Labs Anticipated Discharge: Home Family Medicine Attendnig Note: I saw and examined the patient with Elliott Brokc, and I agree with his note. H/H this afternoon was down a bit from prior (Hgb 8.5) but this could be dilutional as the patient is still receiving IVF. Patient's nurse states she is eating and drinking well, so I will d/c her IVF. She had 1 BM today that patient reports did not have any blood in it; her nurse did not see it and cannot confirm this. Her Abd CT was unremarkable. I will consent her for blood products in case her H/H continues to trend down and she needs a transfusion later today, but hopefully she will remain stable and may possibly be discharged tomorrow. (KES) VS, I&O, 24H, Fishbone Vital Signs/I&O Vital Signs Date Time Temp Pulse Resp B/P Pulse Ox O2 Delivery O2 Flow Rate FiO2 08/31/16 06:00 96.5 78 16 104/62 97 Room Air I&O- Last 24 Hours up to 6 AM 08/31/16 06:00 Intake Total 0 ml Output Total 0 ml Balance 0 ml Laboratory Data 24H LABS Laboratory Tests 2 08/30/16 15:27: Aspartate Amino Transf (AST/SGOT) 14L, Alanine Aminotransferase (ALT/SGPT) 26, Alkaline Phosphatase 151H, Total Bilirubin 0.5, Direct Bilirubin 0.1, Albumin 3.8, Albumin/Globulin Ratio 1.41, Amylase Level 34, Anion Gap 9, White Blood Count 15.7H, Red Blood Count 2.99L, Hemoglobin 9.5L, Hematocrit 27.3L, Mean Corpuscular Volume 91.4, Mean Corpuscular Hemoglobin 31.8, Mean Corpuscular Hemoglobin Concent 34.8, Red Cell Distribution Width 18.0H, Platelet Count 161, Neutrophils (%) (Auto) 87.4H, Lymphocytes (%) (Auto) 4.3L, Monocytes (%) (Auto) 5.7H, Eosinophils (%) (Auto) 0.2, Basophils (%) (Auto) 0.4, Neutrophils # (Auto ) 13.7H, Lymphocytes # (Auto) 0.7L, Monocytes # (Auto) 0.9H, Eosinophils # (Auto ) 0.0, Basophils # (Auto) 0.1, Calcium Level 8.7, Glomerular Filtration Rate > 60.0, Large Unclassified Cells # 0.3, Large Unclassified Cells % 2.2, Lipase 82 , Total Protein 6.5 08/30/16 22:28: Urine Appearance CLEAR, Urine Color YELLOW, Urine pH 7.0, Urine Specific [place] >1.060H, Urine Protein NEGATIVE, Urine Glucose (UA) NEGATIVE, Urine Ketones NEGATIVE, Urine Urobilinogen 0.2, Urine Bilirubin NEGATIVE, Urine Leukocyte Esterase NEGATIVE, Urine Bacteria (Auto) NEGATIVE, Urine Blood NEGATIVE, Urine Hyaline Casts (Auto) 0, Urine Nitrite NEGATIVE, Urine RBC (Auto ) 2, Urine Sperm (Auto) , Urine Squamous Epithelial Cells 0, Urine WBC (Auto) 1 CBC/BMP Laboratory Tests 08/30/16 15:27 Red Blood Count 2.99 L, Mean Corpuscular Volume 91.4, Mean Corpuscular Hemoglobin 31.8, Mean Corpuscular Hemoglobin Concent 34.8, Red Cell Distribution Width 18.0 H, Neutrophils (%) (Auto) 87.4 H, Lymphocytes (%) (Auto ) 4.3 L, Monocytes (%) (Auto) 5.7 H, Eosinophils (%) (Auto) 0.2, Basophils (%) ( Auto) 0.4, Neutrophils # (Auto) 13.7 H, Lymphocytes # (Auto) 0.7 L, Monocytes # (Auto) 0.9 H, Eosinophils # (Auto) 0.0, Basophils # (Auto) 0.1 08/31/16 01:05 08/31/16 07:07 Microbiology Microbiology 08/30/16 Urine Culture, Received Pending GME ATTESTATION GME ATTESTATION My preceptor for this patient encounter was physically present in the building during the encounter and was fully available. As needed, all aspects of the patient interview, examination, medical decision making process, and medical care plan development were reviewed and approved by the preceptor. Preceptor is aware and concurs with the plan as stated in the body of this note and will attest to such by his/her cosignature. ELLIOTT BROCK DO Aug 31, 2016 08:14 KAMALA BOWLING MD Aug 31, 2016 17:04
[2016-08-31 08:20] LABS: WHITE BLOOD COUNT 16.2 K/mm3 (4.0-10.0)
[2016-08-31 08:21] LABS: MEAN CORPUSCULAR HEMOGLOBIN 31.6 pg (27.0-33.0); MEAN CORPUSCULAR HGB CONC 33.8 g/dl (32.0-36.5); MEAN CORPUSCULAR VOLUME 93.5 fl (80.0-96.0); RED CELL DISTRIBUTION WIDTH 17.7 % (11.5-14.5)
[2016-08-31 08:37] LABS: BASOPHILS 1 % (0-4)
[2016-08-31 08:38] LABS: ANISOCYTOSIS 2+
[2016-08-31] MEDS: PRAMOXINE 1% RECTAL FOAM 15 GM CAN PR SCH ×3 (09:00→21:01)
[2016-08-31] MEDS: SODIUM CHLORIDE 0.9% INJ 10 ML SYR IV SCH (09:00)
--- NOTE | 2016-08-31 09:04 | REP ---
Clinical: Acute abdominal pain. History of breast cancer. Technique: Axial contrast enhanced images from the lung bases to the pubic symphysis using oral and 100 ml Isovue 370 intravenous contrast material. Comparison: 05/05/2016. Findings: Lung bases demonstrate minimal fibroatelectatic changes. Visualized heart and pericardium normal. Mild fatty infiltration to the liver is suggested without focal hepatic lesion. Spleen, pancreas, bilateral adrenal glands and kidneys are normal. The patient is status post cholecystectomy. The enteric system is without obstruction or acute inflammatory process and a normal terminal ileum and appendix are identified in the right lower quadrant. Pelvis demonstrates normal bladder and age-appropriate uterus/adnexa. No pelvic fluid or ascites. No adenopathy. No mass lesion. Abdominal aorta and vasculature appears normal. Surrounding musculoskeletal structures demonstrate age-related changes without focal osseous abnormality. Impression: Mild fatty infiltration of the liver. No acute intra-abdominal or pelvic pathology appreciated. Signed by Malachi Abernathy MD 08/31/2016 08:56 A
[2016-08-31] MEDS: ESCITALOPRAM OXALATE 10 MG TAB (LEXAPRO) PO SCH (09:26)
[2016-08-31] MEDS: ASCORBIC ACID 500 MG TAB PO SCH (09:26)
[2016-08-31] MEDS: MULTIVITAMINS/MINERALS THERAP 1 TAB PO SCH (09:26)
[2016-08-31] MEDS: PERCOCET 5MG/325MG TAB PO PRN ×2 (11:28→19:08)
[2016-08-31 14:00] VITALS: BP 110/54
[2016-08-31] MEDS: SODIUM CHLORIDE 0.9% INJ 10 ML SYR IV PRN ×2 (14:06→18:30)
[2016-08-31] MEDS ORDERED: ALPRAZolam 0.25 MG TAB PO SCH (21:00)
[2016-08-31 22:00] VITALS: BP 92/50
[2016-09-01] MEDS: SODIUM CHLORIDE 0.9% INJ 10 ML SYR IV PRN ×2 (00:28→05:51)
[2016-09-01] MEDS: LEVOTHYROXINE 0.137 MG TAB (137MCG) PO SCH (05:51)
[2016-09-01 06:00] VITALS: BP 96/49
[2016-09-01 06:45] LABS: MEAN CORPUSCULAR HEMOGLOBIN 31.4 pg (27.0-33.0); MEAN CORPUSCULAR HGB CONC 33.9 g/dl (32.0-36.5); MEAN CORPUSCULAR VOLUME 92.7 fl (80.0-96.0); RED CELL DISTRIBUTION WIDTH 18.2 % (11.5-14.5); WHITE BLOOD COUNT 15.5 K/mm3 (4.0-10.0)
[2016-09-01 07:01] LABS: ANION GAP 9 MEQ/L (8-16); BLOOD UREA NITROGEN 7 MG/DL (7-18); CALCIUM LEVEL 8.2 MG/DL (8.5-10.1); CARBON DIOXIDE LEVEL 26 MEQ/L (21-32); CHLORIDE LEVEL 111 MEQ/L (98-107); CREATININE FOR GFR 0.59 MG/DL (0.55-1.02); GLOMERULAR FILTRATION RATE > 60.0 (>51); GLUCOSE, FASTING 96 MG/DL (70-105); SODIUM LEVEL 146 MEQ/L (136-145)
[2016-09-01] MEDS ORDERED: FERR325T3 PO ×2 (07:20→07:47)
[2016-09-01] MEDS ORDERED: PROC1SP PR (07:20)
[2016-09-01 07:21] LABS: PERCENT SATURATION 38.7 % (13.2-37.4); TOTAL IRON BINDING CAPACITY 163 UG/DL (250-450)
--- NOTE | 2016-09-01 07:38 | DS.PDOC ---
Discharge Summary General Date of Admission Aug 30, 2016 at 23:43 Date of Discharge Sep 01, 2016 Primary Care Physician: Ray Jacques MD Attending Physician: Luis Vital M.D. Discharge Summary PROCEDURES PERFORMED DURING STAY: 1. CT abd/pelvis COMPLICATIONS/CHIEF COMPLAINT: Abd Pain, Rectal Bleeding ADMISSION DIAGNOSES: 1. Rectal bleeding 2. Abdominal pain 3. Anemia DISCHARGE DIAGNOSES: 1. Bleeding External Hemorrhoids 2. Anemia HISTORY OF PRESENT ILLNESS: Olivia is a 56-year-old female with past medical history significant for breast cancer, hemorrhoids who presents to the emergency department with chief complaint of abdominal pain. Patient says that her pain began again last Monday. Patient says that her pain starts in her left upper quadrant and then spreads down through the remainder of her abdomen. She is complaining of nausea without vomiting. She is also complaining of right red blood per rectum. She does have a history of hemorrhoids. She has been having bleeding for the last 3 days. She denies any diarrhea or constipation. Her last bowel movement was this morning. HOSPITAL COURSE: Olivia was admitted to med/surg, and her h/h were monitored q6h. She had one bowel movement during her admission, non-bloody in nature. Her h/h was stable throughout admission. She was provided symptomatic relief with proctofoam. Abdominal pain improved, and she was tolerating a regular diet prior to discharge. Abd pain was thought to be related to her chemotherapy. She was reporting some pain and tenderness at her infusiport site, however, on the day of discharge, her WBC count was stable from the day prior. It was elevated, but she does receive neupogen as she is a chemotherapy patient, and this was attributed as the etiology of her leukocytosis. She was without fever and was not neutropenic, but blood cultures were obtained prior to dc and should be followed-up as outpt. As she appeared well, no abx were started. DISCHARGE MEDICATIONS: Please see below. ALLERGIES: Please see below. PHYSICAL EXAMINATION ON DISCHARGE: VITAL SIGNS: Please see below. GENERAL: Alert, active, NAD HEENT: NC/AT. PERRLA, anicteric. Conjunctivae pink. MMM NECK: No adenopathy CARDIOVASCULAR EXAMINATION: RSR, no murmurs RESPIRATORY EXAMINATION: CTAB, normal work of breathing. No c/r/r/w ABDOMINAL EXAMINATION: Soft, NTND. BS normal. No rebound. Mild tenderness on deep palpation. EXTREMITIES: No edema SKIN: Warm, well perfused. capillary refill 2-3 sec. NEUROLOGICAL EXAMINATION: Normal strength and tone LABORATORY DATA: Please see below. IMAGING: Abd CT obtained in ED: Lung bases demonstrate minimal fibroatelectatic changes. Visualized heart and pericardium normal. Mild fatty infiltration to the liver is suggested without focal hepatic lesion. Spleen, pancreas, bilateral adrenal glands and kidneys are normal. The patient is status post cholecystectomy. The enteric system is without obstruction or acute inflammatory process and a normal terminal ileum and appendix are identified in the right lower quadrant. Pelvis demonstrates normal bladder and age-appropriate uterus/adnexa. No pelvic fluid or ascites. No adenopathy. No mass lesion. Abdominal aorta and vasculature appears normal. Surrounding musculoskeletal structures demonstrate age-related changes without focal osseous abnormality. DISCHARGE CONDITION: Stable DISPOSITION: Home ACTIVITY: As tolerated DIET: Regular ITEMS TO FOLLOWUP ON OUTPATIENT: 1. Blood Cultures 2. H/H DISCHARGE PLAN AND INSTRUCTIONS: 1. Follow up c Dr. Richard today at 1000 2. Follow-up c Dr. Jacques within a week and have labs obtained prior to that appointment 3. Return to ED or clinic for urgent evaluation should you experience recurrence of symptoms, severe fatigue, light-headedness, syncope, or other signs of anemia. 4. Your iron stores are normal, but considering that you are undergoing treatment to stimulate your bone marrow, you've been started on an Fe supplement. TIME SPENT ON DISCHARGE: 30 minutes Vital Signs/I&Os Vital Signs Date Time Temp Pulse Resp B/P Pulse Ox O2 Delivery O2 Flow Rate FiO2 09/01/16 06:00 98.5 90 16 96/49 100 Room Air I&O- Last 24 Hours up to 6 AM 09/01/16 06:00 Intake Total 1680 ml Output Total 0 ml Balance 1680 ml Laboratory Data Labs 24H Laboratory Tests 2 09/01/16 05:53: Anion Gap 9, Blood Urea Nitrogen 7, Creatinine 0.59, Sodium Level 146H, Potassium Level 4.0, Chloride Level 111H, Carbon Dioxide Level 26, Calcium Level 8.2L, Glomerular Filtration Rate > 60.0, Iron Level 63, Total Iron Binding Capacity 163L, Transferrin % Saturation 38.7H CBC/BMP Laboratory Tests 08/31/16 14:02 08/31/16 18:29 09/01/16 00:27 09/01/16 05:53 Calcium Level 8.2 L 09/01/16 06:29 Red Blood Count 2.60 L, Mean Corpuscular Volume 92.7, Mean Corpuscular Hemoglobin 31.4, Mean Corpuscular Hemoglobin Concent 33.9, Red Cell Distribution Width 18.2 H Item Value Date Time Calcium Level 8.2 MG/DL L 09/01/16 0553 Iron Level 63 UG/DL 09/01/16 0553 Total Iron Binding Capacity 163 UG/DL L 09/01/16 0553 Transferrin % Saturation 38.7 % H 09/01/16 0553 Microbiology Microbiology 08/31/16 Blood Culture, Received Pending 08/31/16 Blood Culture, Received Pending 08/30/16 Urine Culture, Received Pending Medications Scheduled (Lidocaine/Prilocaine 2.5-2.5 %) 1 Cre Cre 1 CRE EXT 2XW APPLIES AROUND ACCESS PORT; MONDAYS AND THURSDAYS Alprazolam (Xanax) 0.25 Mg Tab 0.25 MG PO QHS Ascorbic Acid (Vitamin C) 500 Mg Tab 500 MG PO DAILY Escitalopram Oxalate (Lexapro) 10 Mg Tab 10 MG PO DAILY Ferrous Sulfate (Ferrous Sulfate) 325 Mg Tab 325 MG PO DAILY Levothyroxine Sodium (Synthroid) 137 Mcg Tab 137 MCG PO DAILY Multivitamins *[facility] STOCKED* (Thera M Plus *[facility] STOCKED*) 1 Tab Tab 1 TAB PO DAILY Pegfilgastrim (Neulasta) 6 Mg/0.6 Ml Inj 6 MG SC Q2WK Pramoxine HCl (Pramoxine HCl 1% Rectal Foam) 1 Dose/15 Gm Foam 0 DOSE AK BID Scheduled PRN Acetaminophen (Acetaminophen) 500 Mg Tab 1,000 MG PO Q6H PRN PRN PAIN Prochlorperazine Maleate (Prochlorperazine Maleate) 10 Mg Tab 10 MG PO QID PRN PRN NAUSEA Allergies Coded Allergies: Hydromorphone (Unverified Adverse Reaction, Mild, VOMITING, 07/04/16) Meperidine (Unverified Adverse Reaction, Mild, VOMITING, 07/04/16) Morphine (Unverified Adverse Reaction, Mild, VOMITING, 07/04/16) TYLER BROCK DO Sep 01, 2016 07:38
[2016-09-01] MEDS: ESCITALOPRAM OXALATE 10 MG TAB (LEXAPRO) PO SCH (08:21)
[2016-09-01] MEDS: MULTIVITAMINS/MINERALS THERAP 1 TAB PO SCH (08:21)
[2016-09-01] MEDS: ASCORBIC ACID 500 MG TAB PO SCH (08:21)
[2016-09-01] MEDS: SODIUM CHLORIDE 0.9% INJ 10 ML SYR IV SCH (08:22)
[2016-09-01] MEDS: PRAMOXINE 1% RECTAL FOAM 15 GM CAN PR SCH (08:23)
[2016-09-01] MEDS ORDERED: EMLA CREAM 5GM (LIDOCAINE/PRILOCAINE) TOP SCH (09:00)
--- NOTE | 2016-09-02 04:35 | EDDOCDS ---
Physician Documentation [facility] Name: Olivia Elise Age: 56 yrs Sex: Female : 1960 Arrival Date: 08/30/2016 Time: 14:39 Bed 6 Private MD: Eduard [facility] Disposition: 08/30/16 23:23 Hospitalization ordered by Hector Khalil for Inpatient Admission. Preliminary diagnosis are Left sided colitis with rectal bleeding, Anemia in neoplastic disease. - Bed requested for 4 [place] (Formerly 3 [facility]). - Status is Inpatient Admission. alice - Condition is Stable. - Problem is an ongoing problem. - Symptoms are unchanged. HPI: 08/30 15:31 This 56 yrs old Female presents to ER via Walkin/Carried/Asstd with pc complaints of Abdominal Pain. 15:31 The history is obtained from the patient. She has been feeling bloated, with rectal pc pain and aggravation of her chronic hemorrhoids with intermittent bleeding, for 4-5 days. She has intermittent abdominal cramping that becomes severe but does resolve completely. She says she has had small bowel movements but denies constipation and diarrhea. She had her second course of Chemotherapy last week and has felt run down since. She was seen at the Oncology clinic today and had blood work, which is reportedly normal. They did not exam her abdomen or do a rectal exam. She denies any Resp or symptoms, denies fevers or chills. She had Neulasta last week. The patient has not experienced similar symptoms in the past. The patient has been recently seen by an oncologist. Historical: - Allergies: Dilaudid (Vomit); Demerol (Vomit); Morphine (migraines); - Home Meds: 1. Synthroid 137 mcg Oral tab 1 tab once daily (Last dose: 08/30/2016 08:15) 2. Lexapro 10 mg Oral tab 1 tab once daily (Last dose: 08/30/2016 08:15) 3. Xanax 0.25 mg Oral tab hs 4. multivitamin Oral liqd 1 tablet daily 5. Vitamin C 500 mg Oral tab daily 6. Tylenol 500mg Oral prn (Last dose: 08/29/2016) - PMHx: breast cancer; blood transfusions; Myocardial infarction; Carpal Tunnel Syndrome; Hemorrhoids; Irritable bowel syndrome; - PSHx: Cholecystectomy; Carpal Tunnel Repair- Bilateral; neck fusion left sided; Mastectomy- Bilateral; Tonsillectomy; [id number]; - The history from nurses notes was reviewed: and elements of the historical information I have obtained differs from that reported to nursing. - Social history: Smoking status: Patient states former smoker of tobacco. No barriers to communication noted, The patient speaks fluent Romanian, Speaks appropriately for age. - : The pt / caregiver states he / she is not on anticoagulants. Home medication list is obtained from the patient. - Hospitalizations: : No recent hospitalization is reported. - Exposure Risk Screening:: None identified. - Immunization history:: All immunizations up-to-date. - Family history: Not pertinent. - Social history:: the patient is a non-smoker, the patient drinks alcohol, socially. ROS: 15:35 All systems are negative except as listed. pc Exam: 15:35 General Appearance: no acute distress, alert. pc 15:35 EENT: normal eye inspection, ears, nose and throat normal, pharynx normal, mucous membranes moist 15:35 Neck: The exam reveals no acute abnormalities. ROM is normal and painless. No nuchal rigidity is noted.. 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 15:35 CVS: regular pulse rate, regular rhythm, normal S1 and S2, no murmurs, strong peripheral pulses, normal capillary refill. 15:35 Abdomen: no masses appreciated, no hernias palpated with/without gravity or Valsalva distended, mild tenderness in all quadrants, without rebound, voluntary guarding is not appreciated, involuntary guarding is not appreciated, tympanic to percussion Rectal exam: hemorrhoids are present, external, not painful, not inflammed. 15:35 Back: normal inspection. 15:35 Skin: skin color is normal, warm, dry. 15:35 Extremities: The extremities have a grossly normal appearance, are non-tender, without acute ROM abnormalities. 15:35 Neuro: oriented x 3, cranial nerves normal as tested, no motor deficits, no sensory deficits. 15:35 Psych: normal mood. Vital Signs: 14:41 BP 122 / 60; Pulse 92; Resp 18; Temp 98.9(O); Pulse Ox 99% on R/A; Weight 67.59 kg / ct3 149.01 lbs (R); Height 5 ft. 1 in. (154.94 cm) (R); Pain 5/10; 18:59 BP 119 / 60; Pulse 91; Resp 18; Temp 98.6(O); Pulse Ox 97% on R/A; Pain 7/10; dsf 08/31 03:23 BP 100 / 50; Pulse 90; Resp 18; Temp 98.7; Pulse Ox 95% on R/A; Pain 6/10; jul 18 14:41 Body Mass Index 28.15 (67.59 kg, 154.94 cm) ct3 MDM: 08/30 15:15 heparin 100units/mL flush (infusaport) 5 ml IVP once; flush first with 10mL of NS pc followed by heparin ordered. 15:15 Access Infusaport ordered. pc 15:16 Abdomen, Flat\E\Upright,PA Chest Ordered. EDMS 15:16 CBC with Diff Ordered. EDMS 15:16 MED Profile Ordered. EDMS 15:16 Liver Profile Ordered. EDMS 15:35 Differential Diagnosis: abdominal cramping, rectal pain with bleeding, on Chemotherapy, pc Hx of IBS. Plan: labs, imaging. 15:42 Financial registration complete. b 16:10 [facility] Payment Agreement was scanned into [employer] and attached to record. gjb 16:48 CBC with Diff Reviewed. pc 16:48 Liver Profile Reviewed. pc 16:48 MED Profile Reviewed. pc 16:48 Abdomen, Flat\E\Upright,PA Chest Reviewed. pc 16:50 CT ABD & PELVIS: IV and Oral Contrast Ordered. EDMS 17:42 Diatrizoate Meglumine & Sodium Liquid 10 ml PO once; mix in 290cc of water 2nd cup 1800 dsf ordered. 17:42 Diatrizoate Meglumine & Sodium Liquid 10 ml PO once; mix in 290cc of water 2nd cup 1800 dsf ordered. 20:04 oxyCODONE-acetaminophen 5 mg-325 mg 1 tabs PO once ordered. cs11 21:22 Urinalysis Ordered. EDMS 21:22 Urine Culture Ordered. EDMS 22:58 Liver Profile Reviewed. cs11 22:58 Urinalysis Reviewed. cs11 22:58 MED Profile Reviewed. cs11 22:58 AMYLASE Reviewed. cs11 22:58 LIPASE Reviewed. cs11 23:08 BED REQUEST+ADM ordered. EDMS 23:20 ED course: CT scan was normal. urinanalysis normal. amylase/lipase normal.. ED course: cs11 family doesn't want to take pt. home with rectal bleeding and abdominal pain. I did discuss with Dr Khalil who was gracious to see the pt.. 23:45 Admission / Observation Status ordered. EDMS 08/31 00:20 REGULAR DIET ordered. EDMS 00:31 HEMOGLOBIN & HEMATOCRIT Ordered. EDMS 00:31 HEMOGLOBIN & HEMATOCRIT Ordered. EDMS 00:31 HEMOGLOBIN & HEMATOCRIT Ordered. EDMS 00:31 HEMOGLOBIN & HEMATOCRIT Ordered. EDMS 00:50 oxyCODONE-acetaminophen 5 mg-325 mg 1 tabs PO once; admission order ordered. cf2 03:05 oxyCODONE-acetaminophen 5 mg-325 mg 2 tabs PO once; ADMISSION ORDERS ordered. cf2 Administered Medications: 08/30 17:30 Drug: Diatrizoate Meglumine & Sodium 10 ml [diatrizoate meglumine and diat.sodium 66 dsf %-10 % oral solution (10 mL)] Route: PO; 21:35 Follow up: Response: Pain is decreased cf2 18:00 Drug: Diatrizoate Meglumine & Sodium 10 ml [diatrizoate meglumine and diat.sodium 66 dsf %-10 % oral solution (10 mL)] Route: PO; 21:35 Follow up: Response: Pain is decreased cf2 20:14 Drug: oxyCODONE-acetaminophen 1 tabs [oxycodone-acetaminophen 5 mg-325 mg tablet (1 cf2 tabs)] Route: PO; 21:35 Follow up: Response: Pain is decreased cf2 08/31 00:50 Drug: oxyCODONE-acetaminophen 1 tabs [oxycodone-acetaminophen 5 mg-325 mg tablet (1 cf2 tabs)] Route: PO; 03:05 Drug: oxyCODONE-acetaminophen 2 tabs [oxycodone-acetaminophen 5 mg-325 mg tablet (2 cf2 tabs)] Route: PO; Signatures: Dispatcher [employer] EDDE Antelmo Gandhi MD MD pc Michelson, Staci, RN RN srm Newman, Jill New, RN RN jan Lopresti, Mary-Elizabeth, Systems Operator Unit ml3 Cherise Johnson RN RN dsf Schiff, Craig, DO cs11 Cristal Rodriguez ChristinaRN RN cf2 The chart was reviewed and I authenticate all verbal orders and agree with the evaluation and treatment provided.Corrections: (The following items were deleted from the chart) 08/30 22:34 22:28 AMYLASE+LAB ordered. EDMS EDMS : 22:28 LIPASE+LAB ordered. EDMS EDMS Attachments: 16:10 [facility] Payment Agreement smiley Chart Complete MTDD
--- NOTE | 2016-09-02 04:35 | EDDOCDS ---
Physician Documentation [facility] Name: Olivia Elise Age: 56 yrs Sex: Female : 1960 Arrival Date: 08/30/2016 Time: 14:39 Bed 6 Private MD: Eduard [facility] Disposition: 08/30/16 23:23 Hospitalization ordered by Hector Khalil for Inpatient Admission. Preliminary diagnosis are Left sided colitis with rectal bleeding, Anemia in neoplastic disease. - Bed requested for 4 [place] (Formerly 3 [facility]). - Status is Inpatient Admission. alice - Condition is Stable. - Problem is an ongoing problem. - Symptoms are unchanged. HPI: 08/30 15:31 This 56 yrs old Female presents to ER via Walkin/Carried/Asstd with pc complaints of Abdominal Pain. 15:31 The history is obtained from the patient. She has been feeling bloated, with rectal pc pain and aggravation of her chronic hemorrhoids with intermittent bleeding, for 4-5 days. She has intermittent abdominal cramping that becomes severe but does resolve completely. She says she has had small bowel movements but denies constipation and diarrhea. She had her second course of Chemotherapy last week and has felt run down since. She was seen at the Oncology clinic today and had blood work, which is reportedly normal. They did not exam her abdomen or do a rectal exam. She denies any Resp or symptoms, denies fevers or chills. She had Neulasta last week. The patient has not experienced similar symptoms in the past. The patient has been recently seen by an oncologist. Historical: - Allergies: Dilaudid (Vomit); Demerol (Vomit); Morphine (migraines); - Home Meds: 1. Synthroid 137 mcg Oral tab 1 tab once daily (Last dose: 08/30/2016 08:15) 2. Lexapro 10 mg Oral tab 1 tab once daily (Last dose: 08/30/2016 08:15) 3. Xanax 0.25 mg Oral tab hs 4. multivitamin Oral liqd 1 tablet daily 5. Vitamin C 500 mg Oral tab daily 6. Tylenol 500mg Oral prn (Last dose: 08/29/2016) - PMHx: breast cancer; blood transfusions; Myocardial infarction; Carpal Tunnel Syndrome; Hemorrhoids; Irritable bowel syndrome; - PSHx: Cholecystectomy; Carpal Tunnel Repair- Bilateral; neck fusion left sided; Mastectomy- Bilateral; Tonsillectomy; [id number]; - The history from nurses notes was reviewed: and elements of the historical information I have obtained differs from that reported to nursing. - Social history: Smoking status: Patient states former smoker of tobacco. No barriers to communication noted, The patient speaks fluent Yi, Speaks appropriately for age. - : The pt / caregiver states he / she is not on anticoagulants. Home medication list is obtained from the patient. - Hospitalizations: : No recent hospitalization is reported. - Exposure Risk Screening:: None identified. - Immunization history:: All immunizations up-to-date. - Family history: Not pertinent. - Social history:: the patient is a non-smoker, the patient drinks alcohol, socially. ROS: 15:35 All systems are negative except as listed. pc Exam: 15:35 General Appearance: no acute distress, alert. pc 15:35 EENT: normal eye inspection, ears, nose and throat normal, pharynx normal, mucous membranes moist 15:35 Neck: The exam reveals no acute abnormalities. ROM is normal and painless. No nuchal rigidity is noted.. 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 15:35 CVS: regular pulse rate, regular rhythm, normal S1 and S2, no murmurs, strong peripheral pulses, normal capillary refill. 15:35 Abdomen: no masses appreciated, no hernias palpated with/without gravity or Valsalva distended, mild tenderness in all quadrants, without rebound, voluntary guarding is not appreciated, involuntary guarding is not appreciated, tympanic to percussion Rectal exam: hemorrhoids are present, external, not painful, not inflammed. 15:35 Back: normal inspection. 15:35 Skin: skin color is normal, warm, dry. 15:35 Extremities: The extremities have a grossly normal appearance, are non-tender, without acute ROM abnormalities. 15:35 Neuro: oriented x 3, cranial nerves normal as tested, no motor deficits, no sensory deficits. 15:35 Psych: normal mood. Vital Signs: 14:41 BP 122 / 60; Pulse 92; Resp 18; Temp 98.9(O); Pulse Ox 99% on R/A; Weight 67.59 kg / ct3 149.01 lbs (R); Height 5 ft. 1 in. (154.94 cm) (R); Pain 5/10; 18:59 BP 119 / 60; Pulse 91; Resp 18; Temp 98.6(O); Pulse Ox 97% on R/A; Pain 7/10; dsf 08/31 03:23 BP 100 / 50; Pulse 90; Resp 18; Temp 98.7; Pulse Ox 95% on R/A; Pain 6/10; jul 18 14:41 Body Mass Index 28.15 (67.59 kg, 154.94 cm) ct3 MDM: 08/30 15:15 heparin 100units/mL flush (infusaport) 5 ml IVP once; flush first with 10mL of NS pc followed by heparin ordered. 15:15 Access Infusaport ordered. pc 15:16 Abdomen, Flat\E\Upright,PA Chest Ordered. EDMS 15:16 CBC with Diff Ordered. EDMS 15:16 MED Profile Ordered. EDMS 15:16 Liver Profile Ordered. EDMS 15:35 Differential Diagnosis: abdominal cramping, rectal pain with bleeding, on Chemotherapy, pc Hx of IBS. Plan: labs, imaging. 15:42 Financial registration complete. b 16:10 [facility] [place] Agreement was scanned into [employer] and attached to record. gjb 16:48 CBC with Diff Reviewed. pc 16:48 Liver Profile Reviewed. pc 16:48 MED Profile Reviewed. pc 16:48 Abdomen, Flat\E\Upright,PA Chest Reviewed. pc 16:50 CT ABD & PELVIS: IV and Oral Contrast Ordered. EDMS 17:42 Diatrizoate Meglumine & Sodium Liquid 10 ml PO once; mix in 290cc of water 2nd cup 1800 dsf ordered. 17:42 Diatrizoate Meglumine & Sodium Liquid 10 ml PO once; mix in 290cc of water 2nd cup 1800 dsf ordered. 20:04 oxyCODONE-acetaminophen 5 mg-325 mg 1 tabs PO once ordered. cs11 21:22 Urinalysis Ordered. EDMS 21:22 Urine Culture Ordered. EDMS 22:58 Liver Profile Reviewed. cs11 22:58 Urinalysis Reviewed. cs11 22:58 MED Profile Reviewed. cs11 22:58 AMYLASE Reviewed. cs11 22:58 LIPASE Reviewed. cs11 23:08 BED REQUEST+ADM ordered. EDMS 23:20 ED course: CT scan was normal. urinanalysis normal. amylase/lipase normal.. ED course: cs11 family doesn't want to take pt. home with rectal bleeding and abdominal pain. I did discuss with Dr Khalil who was gracious to see the pt.. 23:45 Admission / Observation Status ordered. EDMS 08/31 00:20 REGULAR DIET ordered. EDMS 00:31 HEMOGLOBIN & HEMATOCRIT Ordered. EDMS 00:31 HEMOGLOBIN & HEMATOCRIT Ordered. EDMS 00:31 HEMOGLOBIN & HEMATOCRIT Ordered. EDMS 00:31 HEMOGLOBIN & HEMATOCRIT Ordered. EDMS 00:50 oxyCODONE-acetaminophen 5 mg-325 mg 1 tabs PO once; admission order ordered. cf2 03:05 oxyCODONE-acetaminophen 5 mg-325 mg 2 tabs PO once; ADMISSION ORDERS ordered. cf2 Administered Medications: 08/30 17:30 Drug: Diatrizoate Meglumine & Sodium 10 ml [diatrizoate meglumine and diat.sodium 66 dsf %-10 % oral solution (10 mL)] Route: PO; 21:35 Follow up: Response: Pain is decreased cf2 18:00 Drug: Diatrizoate Meglumine & Sodium 10 ml [diatrizoate meglumine and diat.sodium 66 dsf %-10 % oral solution (10 mL)] Route: PO; 21:35 Follow up: Response: Pain is decreased cf2 20:14 Drug: oxyCODONE-acetaminophen 1 tabs [oxycodone-acetaminophen 5 mg-325 mg tablet (1 cf2 tabs)] Route: PO; 21:35 Follow up: Response: Pain is decreased cf2 08/31 00:50 Drug: oxyCODONE-acetaminophen 1 tabs [oxycodone-acetaminophen 5 mg-325 mg tablet (1 cf2 tabs)] Route: PO; 03:05 Drug: oxyCODONE-acetaminophen 2 tabs [oxycodone-acetaminophen 5 mg-325 mg tablet (2 cf2 tabs)] Route: PO; Signatures: Dispatcher [employer] EDUT Antelmo Gandhi MD MD pc Michelson, Staci, RN RN srm Newman, Jill New, RN RN jan Lopresti, Mary-Elizabeth, [employer] ml3 Cherise Johnson RN RN dsf Schiff, Craig, DO cs11 Cristal Rodriguez ChristinaRN RN cf2 The chart was reviewed and I authenticate all verbal orders and agree with the evaluation and treatment provided.Corrections: (The following items were deleted from the chart) 08/30 22:34 22:28 AMYLASE+LAB ordered. EDMS EDMS : 22:28 LIPASE+LAB ordered. EDMS EDMS Attachments: 16:10 [facility] [place] Agreement smiley Chart Complete MTDD
--- NOTE | 2016-09-02 04:36 | EDDOCDS ---
Nurse's Notes [facility] Name: Olivia Elise Age: 56 yrs Sex: Female : 1960 Arrival Date: 08/30/2016 Time: 14:39 Bed 6 Private MD: Eduard [facility] Diagnosis: Left sided colitis with rectal bleeding;Anemia in neoplastic disease Presentation: 08/30 14:56 Presenting complaint: Patient states: all over abdominal pain for 3 days. chemo for srm breast cancer. bone pain, neck pain, rectal bleeding. nausea no vomiting. Presenting complaint: Patient states: sent from dr us office. Left upper quad pain. Adult Sepsis Screening: The patient does not have new or worsening altered mentation. Patient's respiratory rate is less than 22. Systolic blood pressure is greater than 100. Patient has a qSOFA score of 0- Negative Sepsis Screen. Suicide/Homicide risk assessment- the patient denies having any suicidal and/or homicidal ideations and does not present with any other emotional, behavioral or mental health complaints. 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 Transition of care: patient was received from a primary care office; dr us. 14:56 Acuity: DEREK Level 3 [facility] 14:56 Method Of Arrival: Walkin/Carried/Asstd srm Triage Assessment: 15:01 General: Appears in no apparent distress, Behavior is appropriate for age, cooperative. srm Pain: Pain currently is 5 out of 10 on a pain scale. GI: Reports lower abdominal pain, upper abdominal pain. 15:01 Pt Declines HIV testing. srm Historical: - Allergies: Dilaudid (Vomit); Demerol (Vomit); Morphine (migraines); - Home Meds: 1. Synthroid 137 mcg Oral tab 1 tab once daily (Last dose: 08/30/2016 08:15) 2. Lexapro 10 mg Oral tab 1 tab once daily (Last dose: 08/30/2016 08:15) 3. Xanax 0.25 mg Oral tab hs 4. multivitamin Oral liqd 1 tablet daily 5. Vitamin C 500 mg Oral tab daily 6. Tylenol 500mg Oral prn (Last dose: 08/29/2016) - PMHx: breast cancer; blood transfusions; Myocardial infarction; Carpal Tunnel Syndrome; Hemorrhoids; Irritable bowel syndrome; - PSHx: Cholecystectomy; Carpal Tunnel Repair- Bilateral; neck fusion left sided; Mastectomy- Bilateral; Tonsillectomy; [id number]; - The history from nurses notes was reviewed: and elements of the historical information I have obtained differs from that reported to nursing. - Social history: Smoking status: Patient states former smoker of tobacco. No barriers to communication noted, The patient speaks fluent Bur[place]ian, Speaks appropriately for age. - : The pt / caregiver states he / she is not on anticoagulants. Home medication list is obtained from the patient. - Hospitalizations: : No recent hospitalization is reported. - Exposure Risk Screening:: None identified. - Immunization history:: All immunizations up-to-date. - Family history: Not pertinent. - Social history:: the patient is a non-smoker, the patient drinks alcohol, socially. Assessment: 15:16 Adult Sepsis Screening: The patient does not have new or worsening altered mentation. dsf Patient's respiratory rate is less than 22. Systolic blood pressure is greater than 100. Patient has a qSOFA score of 0- Negative Sepsis Screen. General: Appears in no apparent distress, Behavior is appropriate for age, cooperative. Pain: Location: right upper quadrant, left upper quadrant, right lower quadrant and left lower quadrant Pain currently is 5 out of 10 on a pain scale. Quality of pain is described as squeezing. Neurological: Level of Consciousness is awake, alert. Cardiovascular: Capillary refill < 3 seconds Heart tones S1 S2 present. Respiratory: Airway is patent Respiratory effort is even, unlabored, Respiratory pattern is regular, symmetrical, Breath sounds are clear bilaterally. GI: Abdomen is non- distended Bowel sounds present X 4 quads. Abd is soft X 4 quads Abd is tender to palpation X 4 quads. Reports nausea. Derm: Skin is pink, warm & dry. 15:59 General: Appears in no apparent distress, Behavior is appropriate for age. dsf Neurological: Level of Consciousness is awake, alert. Cardiovascular: Capillary refill < 3 seconds. Respiratory: Airway is patent Respiratory effort is even, unlabored, Respiratory pattern is regular, symmetrical. Derm: Skin is pink, warm & dry. 17:06 General: Appears in no apparent distress, Behavior is appropriate for age, cooperative. dsf Neurological: Level of Consciousness is awake, alert. Cardiovascular: Capillary refill < 3 seconds. Respiratory: Airway is patent Respiratory effort is even, unlabored, Respiratory pattern is regular, symmetrical. Derm: Skin is pink, warm & dry. 18:06 Adult Sepsis Screening: The patient does not have new or worsening altered mentation. dsf Patient's respiratory rate is less than 22. Systolic blood pressure is greater than 100. Patient has a qSOFA score of 0- Negative Sepsis Screen. General: Appears in no apparent distress, Behavior is appropriate for age, cooperative. Neurological: Level of Consciousness is awake, alert. Cardiovascular: Capillary refill < 3 seconds. Respiratory: Airway is patent Respiratory effort is even, unlabored, Respiratory pattern is regular, symmetrical. Derm: Skin is pink, warm & dry. Vital Signs: 14:41 BP 122 / 60; Pulse 92; Resp 18; Temp 98.9(O); Pulse Ox 99% on R/A; Weight 67.59 kg (R); ct3 Height 5 ft. 1 in. (154.94 cm) (R); Pain 5/10; 18:59 BP 119 / 60; Pulse 91; Resp 18; Temp 98.6(O); Pulse Ox 97% on R/A; Pain 7/10; dsf 08/31 03:23 BP 100 / 50; Pulse 90; Resp 18; Temp 98.7; Pulse Ox 95% on R/A; Pain 6/10; jul 18 14:41 Body Mass Index 28.15 (67.59 kg, 154.94 cm) ct3 Vitals: 08/30 14:41 Log In Time: August 30, 2016 at 14:39. RN notified that patient meets Red Flag ct3 criteria. ED Course: 14:40 Patient visited by Sarah Evans PCA. ct3 14:40 Patient moved to Waiting ct3 14:41 [facility] is Private Physician. ct3 14:44 Patient moved to Pre RCE ct3 14:58 Triage Initiated srm 15:02 Patient moved to 6 srm 15:04 Antelmo Gandhi MD is Attending Physician. pc 15:04 Patient visited by Antelmo Gandhi MD. pc 15:17 Patient visited by Cherise Johnson,MARIO. dsf 15:17 Accessed Infusaport to right upper chest accessed by oncology nurses . dsf 15:59 Patient visited by Cherise Johnson,MARIO. dsf 16:06 Abdomen, Flat\E\Upright,PA Chest Returned. EDMS 16:10 [facility] Payment Agreement was scanned into Free[employer] and attached to record. gjb 17:07 Patient visited by Cherise Johnsno RN. dsf 18:12 Patient visited by Cherise Johnson RN. dsf 18:58 Attending Physician role handed off by Antelmo Gandhi MD cs11 18:58 Charlie Dang DO is Attending Physician. cs11 19:06 Jolene Araujo RN is Primary Nurse. cf2 19:06 Patient visited by Jolene Araujo RN. cf2 19:09 Patient visited by Bo Cha PCA. kb5 20:06 Patient visited by Jolene Araujo RN. cf2 21:00 Patient visited by Jolene Araujo RN. cf2 21:35 Patient visited by Jolene Araujo RN. cf2 22:22 Patient visited by Jolene Araujo RN. cf2 22:24 Patient visited by Jolene Araujo RN. cf2 22:29 Urine Culture Sent. jmv 22:29 Urinalysis Sent. jmv 23:23 Hector Khalil DO is Hospitalizing Provider. cs11 08/31 00:42 Patient visited by Jolene Araujo RN. cf2 00:49 Patient visited by Jolene Araujo RN. cf2 Administered Medications: 08/30 17:30 Drug: Diatrizoate Meglumine & Sodium 10 ml [diatrizoate meglumine and diat.sodium 66 dsf %-10 % oral solution (10 mL)] Route: PO; 21:35 Follow up: Response: Pain is decreased cf2 18:00 Drug: Diatrizoate Meglumine & Sodium 10 ml [diatrizoate meglumine and diat.sodium 66 dsf %-10 % oral solution (10 mL)] Route: PO; 21:35 Follow up: Response: Pain is decreased cf2 20:14 Drug: oxyCODONE-acetaminophen 1 tabs [oxycodone-acetaminophen 5 mg-325 mg tablet (1 cf2 tabs)] Route: PO; 21:35 Follow up: Response: Pain is decreased cf2 08/31 00:50 Drug: oxyCODONE-acetaminophen 1 tabs [oxycodone-acetaminophen 5 mg-325 mg tablet (1 cf2 tabs)] Route: PO; 03:05 Drug: oxyCODONE-acetaminophen 2 tabs [oxycodone-acetaminophen 5 mg-325 mg tablet (2 cf2 tabs)] Route: PO; Intake: 08/30 18:12 PO: 300.00ml (Contrast); Total: 300.00ml. dsf Order Results: Lab Order: CBC with Diff; SPEC'M 08/30/16 15:27 Test: WHITE BLOOD COUNT; Value: 15.7; Range: 4.0-10.0; Abnormal: Above high normal; Units: K/mm3; Status: F Test: RED BLOOD COUNT; Value: 2.99; Range: 4.00-5.40; Abnormal: Below low normal; Units: M/mm3; Status: F Test: HEMOGLOBIN; Value: 9.5; Range: 12.0-16.0; Abnormal: Below low normal; Units: g/dl; Status: F Test: HEMATOCRIT; Value: 27.3; Range: 36.0-47.0; Abnormal: Below low normal; Units: %; Status: F Test: MEAN CORPUSCULAR VOLUME; Value: 91.4; Range: 80.0-96.0; Units: fl; Status: F Test: MEAN CORPUSCULAR HEMOGLOBIN; Value: 31.8; Range: 27.0-33.0; Units: pg; Status: F Test: MEAN CORPUSCULAR HGB CONC; Value: 34.8; Range: 32.0-36.5; Units: g/dl; Status: F Test: RED CELL DISTRIBUTION WIDTH; Value: 18.0; Range: 11.5-14.5; Abnormal: Above high normal; Units: %; Status: F Test: PLATELET COUNT, AUTOMATED; Value: 161; Range: 150-450; Units: k/mm3; Status: F Test: NEUTROPHILS %; Value: 87.4; Range: 36.0-66.0; Abnormal: Above high normal; Units: %; Status: F Test: LYMPH %; Value: 4.3; Range: 24.0-44.0; Abnormal: Below low normal; Units: %; Status: F Test: MONO %; Value: 5.7; Range: 0.0-5.0; Abnormal: Above high normal; Units: %; Status: F Test: EOS %; Value: 0.2; Range: 0.0-3.0; Units: %; Status: F Test: BASO %; Value: 0.4; Range: 0.0-1.0; Units: %; Status: F Test: LARGE UNSTAINED CELL %; Value: 2.2; Range: 0.0-4.0; Units: %; Status: F Test: NEUTROPHILS #; Value: 13.7; Range: 1.8-7.7; Abnormal: Above high normal; Units: K/mm3; Status: F Test: LYMPH #; Value: 0.7; Range: 1.5-4.5; Abnormal: Below low normal; Units: K/mm3; Status: F Test: MONO #; Value: 0.9; Range: 0.0-0.8; Abnormal: Above high normal; Units: K/mm3; Status: F Test: EOS #; Value: 0.0; Range: 0.0-0.50; Units: K/mm3; Status: F Test: BASO #; Value: 0.1; Range: 0.0-0.2; Units: K/mm3; Status: F Test: LARGE UNSTAINED CELL #; Value: 0.3; Range: 0.0-0.4; Units: K/mm3; Status: F Lab Order: MED Profile; [facility]' 08/30/16 15:27 Test: GLUCOSE, FASTING; Value: 81; Range: 70-105; Units: MG/DL; Status: F Test: BLOOD UREA NITROGEN; Value: 10; Range: 7-18; Units: MG/DL; Status: F Test: CREATININE FOR GFR; Value: 0.62; Range: 0.55-1.02; Units: MG/DL; Status: F Test: GLOMERULAR FILTRATION RATE; Value: > 60.0; Range: >51; Status: F Test: SODIUM LEVEL; Value: 142; Range: 136-145; Units: MEQ/L; Status: F Test: POTASSIUM SERUM; Value: 3.7; Range: 3.5-5.1; Units: MEQ/L; Status: F Test: CHLORIDE LEVEL; Value: 105; Range: 98-107; Units: MEQ/L; Status: F Test: CARBON DIOXIDE LEVEL; Value: 28; Range: 21-32; Units: MEQ/L; Status: F Test: ANION GAP; Value: 9; Range: 8-16; Units: MEQ/L; Status: F Test: CALCIUM LEVEL; Value: 8.7; Range: 8.5-10.1; Units: MG/DL; Status: F Test Note: ; Units are mL/min/1.73 m2 Chronic Kidney Disease Staging per NKF: Stage I & II GFR >=60 Normal to Mildly Decreased Stage III GFR 30-59 Moderately Decreased Stage IV GFR 15-29 Severely Decreased Stage V GFR <15 Very Little GFR Left ESRD GFR <15 on [facility] [employer] Lab Order: Liver Profile; SPEC08/30/16 15:27 Test: AST/SGOT; Value: 14; Range: 15-37; Abnormal: Below low normal; Units: U/L; Status: F Test: ALT/SGPT; Value: 26; Range: 12-78; Units: U/L; Status: F Test: ALKALINE PHOSPHATASE; Value: 151; Range: 45-117; Abnormal: Above high normal; Units: U/L; Status: F Test: BILIRUBIN,TOTAL; Value: 0.5; Range: 0.2-1.0; Units: MG/DL; Status: F Test: BILIRUBIN,DIRECT; Value: 0.1; Range: 0.0-0.2; Units: MG/DL; Status: F Test: TOTAL PROTEIN; Value: 6.5; Range: 6.4-8.2; Units: GM/DL; Status: F Test: ALBUMIN; Value: 3.8; Range: 3.2-5.2; Units: GM/DL; Status: F Test: ALBUMIN/GLOBULIN RATIO; Value: 1.41; Range: 1.00-1.93; Status: F Lab Order: Urinalysis; SPEC08/30/16 22:28 Test: APPEARANCE, URINE; Value: CLEAR; Range: CLEAR; Status: F Test: COLOR, URINE; Value: YELLOW; Range: YELLOW; Status: F Test: PH,URINE; Value: 7.0; Range: 5.0-9.0; Units: UNITS; Status: F Test: SPECIFIC GRAVITY URINE AUTO; Value: >1.060; Range: 1.002-1.035; Abnormal: Above high normal; Status: F Test: PROTEIN, URINE AUTO; Value: NEGATIVE; Range: NEGATIVE; Units: mg/dL; Status: F Test: GLUCOSE, URINE (UA) AUTO; Value: NEGATIVE; Range: NEGATIVE; Units: mg/dL; Status: F Test: KETONE, URINE AUTO; Value: NEGATIVE; Range: NEGATIVE; Units: mg/dL; Status: F Test: UROBILINOGEN, URINE AUTO; Value: 0.2; Range: 0.0-2.0; Units: mg/dL; Status: F Test: BILIRUBIN, URINE AUTO; Value: NEGATIVE; Range: NEGATIVE; Status: F Test: NITRITE, URINE AUTO; Value: NEGATIVE; Range: NEGATIVE; Status: F Test: LEUKOCYTE ESTERASE, URINE AUTO; Value: NEGATIVE; Range: NEGATIVE; Status: F Test: BLOOD, URINE BLOOD; Value: NEGATIVE; Range: NEGATIVE; Status: F Test: WBC, URINE AUTO; Value: 1; Range: 0-3; Units: /HPF; Status: F Test: RBC, URINE AUTO; Value: 2; Range: 0-3; Units: /HPF; Status: F Test: BACTERIA, URINE AUTO; Value: NEGATIVE; Range: NEGATIVE; Status: F Test: SQUAMOUS EPITHELIAL CELL UR AU; Value: 0; Range: 0-6; Units: /HPF; Status: F Test: HYALINE CAST, URINE AUTO; Value: 0; Range: 0-1; Units: /LPF; Status: F Lab Order: AMYLASE; [facility] 08/30/16 15:27 Test: AMYLASE; Value: 34; Range: 25-115; Units: U/L; Status: F Lab Order: LIPASE; [facility] 08/30/16 15:27 Test: LIPASE; Value: 82; Range: 73-393; Units: U/L; Status: F Lab Order: HEMOGLOBIN & HEMATOCRIT; [facility] 08/31/16 01:05 Test: HEMOGLOBIN; Value: 9.1; Range: 12.0-16.0; Abnormal: Below low normal; Units: g/dl; Status: F Test: HEMATOCRIT; Value: 26.3; Range: 36.0-47.0; Abnormal: Below low normal; Units: %; Status: F Radiology Order: Abdomen, Flat\E\Upright,PA Chest Test: Abdomen, Flat\E\Upright,PA Chest REASON FOR EXAMINATION: Abdomen Pain; Clinical: Epigastric and abdominal pain.; ; Technique: Upright view of the chest with supine and upright views of the; abdomen and pelvis.; ; Findings: Frontal upright view of the chest demonstrates no acute; cardiopulmonary process or free air below the diaphragm to suspect; pneumoperitoneum. Supine and upright views of the abdomen and pelvis demonstrate; nonspecific bowel gas pattern without obstruction or perforation. No; organomegaly. No abnormal calcifications. Skeletal structures normal for age.; Prior cholecystectomy.; ; Impression:; Nonspecific bowel gas pattern.; ; ; Signed by; Malachi Abernathy MD 08/30/2016 03:40 P; Outcome: 23:23 Decision to Hospitalize by Provider. 11 08/31 03:21 Discharge Assessment: patient administered narcotics - yes. Patient was admitted to the [facility] or transferred to another facility. The following High Risk Discharge criteria are identified: None. Admitted to Med/Surg. Condition: unchanged. CT Study completed. Admission hand-off: Report called to william Ratliff RN. Property :Personal belongings accompany Pt. 03:25 Discharge Assessment: Patient awake and alert. obeys commands, Oriented to person, alice place and time. Patient verbalized understanding of disposition instructions. 03:33 Patient left the ED. jul Signatures: Dispatcher [employer] EDMS Antelmo Gandhi MD MD pc Michelson, Staci, Sofía Frausto RN, RN RN jan Bancroft, Kristopher, TRANSFERRER TRANSFERRER kb5 Sarah Evans, TRANSFERRER TRANSFERRER ct3 Cherise Johnson RN RN dsf Schiff, Craig, DO DO cs11 Cristal Rodriguez Christina, RN RN Sanju Sparrow, TRANSFERRER TRANSFERRER jmv Corrections: (The following items were deleted from the chart) 08/30 22:34 22:30 LIPASE+LAB sent. jul EDMI : 22:30 AMYLASE+LAB sent. jul EDMI Chart Complete MTDD
== END 2016-09-01 09:40 | disposition home or self-care (01) ==
LOC: M ED 14:39 → M ED INP 23:43 → M ALC 08-31 04:15
PROVIDERS: ADMIT Hospitalist; ATTEND Family Medicine
DX: K64.4 Residual hemorrhoidal skin tags (principal); D64.81 Anemia due to antineoplastic chemotherapy; C50.919 Malignant neoplasm of unspecified site of unspecified female breast; Z79.899 Other long term (current) drug therapy; F32.9 Major depressive disorder, single episode, unspecified; E03.9 Hypothyroidism, unspecified; F41.9 Anxiety disorder, unspecified; I25.2 Old myocardial infarction
CPT/HCPCS: 74022; 74177; 80048; 80076; 81001; 82150; 83690; 84466; 85007; 85014; 85018; 85025; 85027; 87040; 87088; 87186; 99285; Q9963; Q9967

== ENCOUNTER → 2016-09-01 | Outpatient (CLI) | payer BC ==
[~2016-09-01] MED LIST changes: +ACET50TAOT PO; +FERR325T3 PO; +LIDO2.5C15 EXT; +PEG6SYR SC; +PROC10TA PO; +PROC1SP PR; +VITA-130 PO; +VITMTA PO
--- NOTE | 2016-09-07 08:41 | RADONC ---
RADIATION ONCOLOGY CONSULTATION NOTE DATE: 09/01/2016 CHART NUMBER: [id number] DIAGNOSIS: Left breast cancer. STAGE: IIIC, [id number]. ECOG PERFORMANCE STATUS: 0 CONSULTATION NOTE: Ms. Elise is presenting to us today with the diagnosis of a stage IIIC, [id number] poorly differentiated infiltrating ductal carcinoma of the left breast status post mastectomy and axillary lymph node dissection as well as chemotherapy for consideration of postoperative radiation therapy in an attempt to increase the likelihood of achieving local control. HISTORY OF PRESENT ILLNESS: The patient's history dates back to January 2016 when she noted a lump in her left breast. She was seen by a local physician and a mammogram was undertaken which was said to be normal. She was subsequently referred to [facility] in [place] with Dr. Og and was found to have a large left-sided breast mass. On 05/25/2016, the patient underwent mastectomy, sentinel lymph node biopsy and axillary dissection. Pathology revealed an 11 cm poorly differentiated invasive ductal carcinoma with extensive angiolymphatic invasion. Three sentinel lymph nodes were sampled and were all positive for metastatic disease with extensive extracapsular extension noted. The largest node was 1.6 cm. The patient then underwent an axillary dissection with an additional 18 axillary lymph nodes sampled, again all filled with malignant cells. This made a total of 21 macro metastatic lymph nodes in the axilla, the largest measuring 1.6 cm and all with extensive extranodal disease. The tumor was estrogen receptor positive, progesterone receptor positive and HER2 equivocal. The patient has since undergone chemotherapy consisting of Adriamycin and Cytoxan. She is presently undergoing biweekly Taxol treatments and is scheduled for another 6 weeks of Taxol. Taxol is scheduled to be completed by the end of September. The patient is scheduled for breast reconstruction on October [address] William in [place]. She will then be returning to us for postoperative radiation therapy. PAST MEDICAL HISTORY: The patient's past medical history is positive for hypothyroidism. She had carpal tunnel surgery as well as cholecystectomy in the past. The patient has had her bilateral mastectomies completed as noted above. ALLERGIES: The patient is allergic to: 1. MORPHINE. 2. DEMEROL. SOCIAL HISTORY: The patient quit smoking in 2013. She does not abuse alcohol. FAMILY HISTORY: The patient's family history is positive for a grandmother with some type of cancer, aunts with thyroid cancer, and uncles with lung cancer. REVIEW OF SYSTEMS: The patient's review of systems is positive for some occasional headaches and anxiety. She reports some weight loss. She also has some occasional rectal bleeding, which she attributes to hemorrhoids. She denies nausea, vomiting, fevers, chills, night sweats, diplopia, chest pain, shortness of breath, urinary difficulties, neurological problems or bone pain. PHYSICAL EXAMINATION: The patient is a well-developed, well-nourished white female in no acute distress. HEENT exam is normocephalic, atraumatic. Extraocular movements are intact. There is no palpable cervical, supraclavicular, infraclavicular, axillary, or inguinal lymphadenopathy present. Lungs are clear to auscultation and percussion. Heart has a regular rate and rhythm. Abdomen is benign with no hepatosplenomegaly, masses, or tenderness. Breast examination - The patient has undergone bilateral mastectomies. Her surgical scars are free of nodularity or ulceration. Expanders are in place. Skeletal examination reveals no tenderness to pressure or percussion of the bony skeleton. Extremities reveal no clubbing, cyanosis, or edema. Neurologic exam is grossly intact, as is the remainder of the physical examination. MEDICAL NECESSITY: IMRT/IGRT is clinically indicated for a highly conformal dose planning regard. The target volume is in close proximity to critical structures, such as the heart, lungs, spinal cord, stomach, and esophagus. The volume of interest must be covered with narrow margins to adequately protect immediately adjacent structures. The plan requires interpretations of complex testing such as CT localization. As noted above, special planning (IMRT) and localizing [IGRT) is required and essential to maximize protect sensitive normal tissue structures which cannot be accomplished using conventional three-dimensional planning. ASSESSMENT: Clearly, this patient has extremely advanced disease with all 21 sample lymph nodes positive for metastasis with extracapsular extension. In light of the fact that this is a left sided breast cancer, I believe IMRT would be indicated in order to treat the timi drainage sites while minimizing treatment to her heart. I am concerned that we need to include not only the entire chest wall, but all lymph drainage sites. This patient is at high risk for local recurrence. IMRT will allow us to target these areas while minimizing treatments to the heart, lung and other normal structures. I have scheduled the patient to return to me 1 week after her breast reconstruction on October 21. We will then evaluate her overall healing and schedule her for initiation of treatment planning. Radiation hopefully will begin approximately 4 weeks following completion of chemotherapy if the healing is completed enough at that point. Thank you for allowing us to participate in the care of this very pleasant woman. I will keep you informed as any new developments as they occur. cc: MD Ray Peralta MD *Sekou Og MD *Malachi William MD
== END ==
LOC: M ONCR 10:07
PROVIDERS: ATTEND Radiology Radiation Oncology
DX: C50.919 Malignant neoplasm of unspecified site of unspecified female breast (principal)

== ENCOUNTER → 2016-09-27 | Outpatient (CLI) | payer BC ==
--- NOTE | 2016-09-28 09:07 | REP ---
Duplex carotid sonography: Repeat dictation. History: Left carotid bruit. Findings: Antegrade flow is observed in both vertebral arteries. Right carotid: The right common carotid artery shows minimal diffuse intimal thickening but is otherwise unremarkable. There is mild soft plaquing in the proximal ICA and bulb on the right side. Color flow and spectral Doppler interrogation are unremarkable on the right. Velocity chart right carotid: CCA PSV 83 cm/s ICA PSV 63 EDV 26 ECA PSV 77 ICA/CCA ratio normal 0.8. Impression: 0 - 15% category narrowing in the right ICA by Doppler velocity criteria. Left carotid: The left common carotid artery also shows minimal diffuse intimal thickening. There is mild soft plaquing in the left carotid bulb and proximal ICA on two-dimensional scanning. Color flow and spectral Doppler interrogation are unremarkable on the left. Velocity chart left carotid: CCA PSV 83 cm/s ICA PSV 70 EDV 26 ECA PSV 77 ICA/CCA ratio normal 0.8. Impression: 0 - 15% category narrowing in the left ICA by Doppler velocity criteria. Signed by Ziggy Knox MD 09/28/2016 06:14 P
== END ==
LOC: M RAD 12:15
PROVIDERS: ATTEND Family Medicine
DX: R09.89 Other specified symptoms and signs involving the circulatory and respiratory systems (principal)

== ENCOUNTER → 2016-09-29 | Outpatient (REF) | payer BC ==
[2016-09-29 13:36] LABS: FREE T4 1.73 NG/DL (0.76-1.46)
== END ==
LOC: M SFHCADAM 12:39
PROVIDERS: ATTEND Family Medicine
DX: E03.9 Hypothyroidism, unspecified (principal)

== ENCOUNTER → 2016-10-10 | Outpatient (REF) | payer BC ==
[2016-10-11 20:39] LABS: ESTRADIOL < 19.0 PG/ML
[2016-10-11 20:40] LABS: FOLLICLE STIMULATING HORMONE 65.6 mIU/mL
== END ==
LOC: M LAB REF 12:14
PROVIDERS: ATTEND Internal Medicine Medical Oncology
DX: C50.412 Malignant neoplasm of upper-outer quadrant of left female breast (principal)

== ENCOUNTER → 2016-11-01 | Outpatient (CLI) | payer BC ==
--- NOTE | 2016-11-02 06:53 | RADONC ---
RADIATION ONCOLOGY FOLLOWUP NOTE DATE: 11/01/2016 CHART NUMBER: [id number] DIAGNOSIS: Left breast cancer Stage IIIC, [id number]. ECOG PERFORMANCE STATUS: 0. FOLLOWUP NOTE: Ms. Elise is a very pleasant 56-year-old white female who is presenting to us today once again with the diagnosis of a stage IIIC, [id number] poorly differentiated infiltrating ductal carcinoma of the left breast who initially presented to us on 09/01/2016 for consideration of postoperative radiation therapy in an attempt to increase the likelihood of achieving local regional control. Since her past visit, she has completed her systemic therapy and on October 21 had completed her surgical reconstruction. She is now presenting for further discussion of postoperative radiation therapy. REVIEW OF SYSTEMS: The patient's review of systems is positive for peripheral neuropathy secondary to chemotherapy. Her last dose of chemo was on 09/29/2016. She could not continue with the Taxol secondary to this neuropathy. The patient's review of systems is noncontributory. Denies nausea, vomiting, fevers, chills, night sweats, diplopia, headaches, anxiety or depression, anorexia, weight loss, visual disturbances, chest pain, urinary or bowel difficulties, bone pain, or neurological problems. PHYSICAL EXAMINATION: The patient is a well-developed, well-nourished 56-year-old in no acute distress. HEENT exam is normocephalic, atraumatic. Extraocular movements are intact. There is no palpable cervical, supraclavicular, infraclavicular, axillary, or inguinal lymphadenopathy present. Lungs are clear to auscultation and percussion. Heart has a regular rate and rhythm. Abdomen is benign with no hepatosplenomegaly, masses, or tenderness. Breast examination reveals bilateral chest wall show reconstruction completed. Her surgical scars are healing nicely. Skeletal examination reveals no tenderness to pressure or percussion of the bony skeleton. Extremities reveal no clubbing, cyanosis, or edema. Neurologic exam is grossly intact, as is the remainder of the physical examination. ASSESSMENT: Ms. Elise clearly is a candidate for external beam radiation therapy with IMRT/IGRT. I have discussed with the patient in detail the potential benefits as well as possible acute and chronic sequelae of external beam radiation therapy. We have discussed logistics of treatment planning, simulation and subsequent fractionated daily radiation treatments. MEDICAL NECESSITY: IMRT/IGRT is clinically indicated for a highly conformal dose planning regard. The target volume is in close proximity to critical structures, such as the heart, lungs, spinal cord, stomach, and esophagus. The volume of interest must be covered with narrow margins to adequately protect immediately adjacent structures. The plan requires interpretations of complex testing such as CT localization. As noted above, special planning (IMRT) and localizing [IGRT) is required and essential to maximize protect sensitive normal tissue structures which cannot be accomplished using conventional three-dimensional planning. The patient is scheduled for initiation of treatment planning and radiation treatments will follow. Thank you once again for allowing us to participate in the care of this very pleasant woman. If I could be of any further assistance or provide you with any information, please free to contact me anytime. As always warm regards. cc: MD Ray Peralta MD *Sekou Og MD *Malachi William MD
== END ==
LOC: M ONCR 12:58
PROVIDERS: ATTEND Radiology Radiation Oncology
DX: C50.112 Malignant neoplasm of central portion of left female breast (principal)

== ENCOUNTER 2016-11-15 14:29 | Outpatient (RCR) | payer BC ==
--- NOTE | 2016-11-16 08:31 | RADONC ---
RADIATION ONCOLOGY SIMULATION NOTE DATE: 11/15/2016 CHART NUMBER: [id number] Ms. Elise was taken to the CT scan for CT simulation of her left breast field. CT was accomplished without difficulty or discomfort. Radiation treatment planning is underway and radiation treatments will begin subsequently. An immobilization device was created without difficulty or discomfort. It will be used out the course of treatment. I was physically present throughout the course of CT simulation.
--- NOTE | 2016-12-05 14:29 | RADONC ---
RADIATION ONCOLOGY PROGRESS NOTE DATE: 12/05/2016 CHART NUMBER: [id number] Ms. Elise is presently at a dose of 600 cGy to her left chest wall and is tolerating treatments quite well at this point with no complaints related to her radiation therapy. She has no chest wall, breast or bone pain. REVIEW OF SYSTEMS: The patient's review of systems is noncontributory. Denies nausea, vomiting, fevers, chills, night sweats, diplopia, headaches, anxiety or depression, anorexia, weight loss, visual disturbances, chest pain, urinary or bowel difficulties, bone pain, or neurological problems. PHYSICAL EXAMINATION: The patient's skin is in excellent condition with no evidence of radiation change present. There is no moist or dry desquamation. The remainder of her physical exam remains unchanged. Ms. Elise is tolerating treatments quite well and radiation will continue as scheduled.
--- NOTE | 2016-12-13 15:22 | RADONC ---
RADIATION ONCOLOGY PROGRESS NOTE: DATE: 12/13/2016 CHART NO: [id number] Ms. Elise is presently at a dose of 1400 cGy to her left chest wall and is tolerating treatments quite well at this point with no complaints related to her radiation therapy. She is having no skin or other discomfort. REVIEW OF SYSTEMS: The patient's review of systems is noncontributory. She denies nausea, vomiting, fevers, chills, night sweats, diplopia, headaches, anxiety or depression, anorexia, weight loss, visual disturbances, chest pain, urinary or bowel difficulties, bone pain, or neurological problems. PHYSICAL EXAMINATION The patient's skin is in good condition with no evidence of moist or dry desquamation. The remainder of her physical exam remains unchanged. Ms. Elise is tolerating treatments quite well and radiation will continue as scheduled.
== END 2016-12-14 ==
LOC: M ONCR 14:29
PROVIDERS: ATTEND Radiology Radiation Oncology
DX: C50.112 Malignant neoplasm of central portion of left female breast (principal)

== ENCOUNTER → 2016-11-15 | Outpatient (CLI) | payer BC | LOC: M RAD 13:44 | PROVIDERS: ATTEND Radiology Radiation Oncology | DX: C50.112 Malignant neoplasm of central portion of left female breast (principal) ==

== ENCOUNTER → 2016-12-02 | Outpatient (CLI) | payer BC ==
--- NOTE | 2016-12-06 10:50 | DEXA ---
AP SPINE L1 - L4 1.031 -1.3 -0.3 LT FEMUR TOTAL 0.889 -0.9 -0.1 RT FEMUR TOTAL 0.904 -0.8 0.0 TOTAL BODY TOTAL OTHER DUAL FEMUR FRAX* ASSESSMENT Risk factors: History of adult fracture. 10 year probability of fracture Major osteoporotic fracture 13.9 % Hip fracture 1.4 % COMMENTS: There is low bone density of the spine and hips. FOLLOW-UP: Recommendation for the next bone density exam: 2 years. JEET
== END ==
LOC: M WHC 13:42
PROVIDERS: ATTEND Internal Medicine Medical Oncology
DX: C50.919 Malignant neoplasm of unspecified site of unspecified female breast (principal); Z79.811 Long term (current) use of aromatase inhibitors

== ENCOUNTER 2016-12-15 11:10 | Outpatient (RCR) | payer BC ==
[~2016-12-15 11:10] MED LIST changes: -VITA-130 PO; +VITA500T PO
--- NOTE | 2016-12-20 15:51 | RADONC ---
RADIATION ONCOLOGY PROGRESS NOTE DATE: 12/20/2016 CHART NUMBER: [id number] Ms. Elise is presently at a dose of 2400 cGy to her left chest wall and is tolerating treatments quite well at this point with no complaints related to her radiation therapy. She is having no chest wall or other pain. The patient's review of systems is noncontributory. She denies nausea, vomiting, fevers, chills, night sweats, diplopia, headaches, anxiety or depression, anorexia, weight loss, visual disturbances, chest pain, urinary or bowel difficulties, bone pain, or neurological problems. PHYSICAL EXAMINATION: The patient's skin is in good condition with just some erythema present. There is no moist or dry desquamation. The remainder of her physical exam remains unchanged. Ms. Elise is tolerating treatments quite well and radiation will continue as scheduled.
--- NOTE | 2016-12-27 09:56 | RADONC ---
RADIATION ONCOLOGY PROGRESS NOTE: DATE OF SERVICE: 12/26/2016 CHART NO: [id number] Ms. Elise is presently at a dose of 3200 cGy to her left chest wall and is tolerating treatments quite well at this point with no complaints related to her radiation therapy. She is having no skin or chest wall pain. REVIEW OF SYSTEMS: The patient's review of systems is noncontributory. Denies nausea, vomiting, fevers, chills, night sweats, diplopia, headaches, anxiety or depression, anorexia, weight loss, visual disturbances, chest pain, urinary or bowel difficulties, bone pain, or neurological problems. PHYSICAL EXAMINATION: The patient's skin is in good condition with no evidence of moist or dry desquamation. There is some radiation erythema present. The remainder of her physical exam remains unchanged other than some bruising on the skin. Upon further questioning, the patient reports that she has been wrestling with her new Japanese Hidalgo. Overall, the patient is tolerating treatments quite well and radiation will continue as scheduled. I recommended highly that she let the Japanese Hidalgo have its way. [facility]
--- NOTE | 2017-01-02 15:40 | RADONC ---
RADIATION ONCOLOGY PROGRESS NOTE DATE: 01/02/2017 CHART NUMBER: [id number] Ms. Elise is presently at a dose of 4200 cGy to her left chest wall and is tolerating treatments quite well at this point with no significant difficulties related to her radiation therapy. She is having no breast or bone pain. The patient's review of systems is noncontributory. She denies nausea, vomiting, fevers, chills, night sweats, diplopia, headaches, anxiety or depression, anorexia, weight loss, visual disturbances, chest pain, urinary or bowel difficulties, bone pain, or neurological problems. PHYSICAL EXAMINATION: The patient's skin is in good condition with no evidence of moist or dry desquamation. The remainder of her physical exam remains unchanged. Ms. Elise is tolerating treatments quite well and radiation will continue as scheduled.
--- NOTE | 2017-01-10 09:04 | RADONC ---
RADIATION ONCOLOGY TREATMENT SUMMARY DATE: 01/09/2017 CHART NUMBER: [id number] DIAGNOSIS: left breast cancer. STAGE: IIIC, [id number]. ECOG PERFORMANCE STATUS: 0. FOLLOWUP NOTE: Ms. Elise is a very pleasant 56-year-old white female with the diagnosis of a stage IIIC, [id number], poorly differentiated infiltrating ductal carcinoma of the left breast who presented to us status post mastectomy and axillary lymph node dissection as well as chemotherapy for consideration of postoperative radiation therapy in an attempt to achieve local control. We treated the patient to the left chest wall as well as lymph nodes drainage sites for a total dose of 5000 cGy delivered in 20 fractions of 200 cGy each over 39 elapsed days from 12/02/2011 through 01/10/2012. The patient's left chest wall, internal mammary nodes, supraclavicular nodes, and axillary nodes were treated on a linear accelerator utilizing a 6 MV photon beam via IMRT/IGRT. We had considered delivering a boost to the primary site area but after careful evaluation the patient was deemed at much greater risk for developing metastatic disease and for local failure in the axillary region rather than in at that region. In light of the extra morbidity a boost would cause we decided treat the entire area to 5040 cGy and complete radiation at that point. Ms. Elise tolerated her treatments quite well with no significant difficulties related to her radiation therapy. She was able to complete therapy as prescribed without interruption. I scheduled the patient to see me again in 1 month for further followup. She will also continue to be followed by her other physicians as well. Thank you for allowing us to participate in the care of this very pleasant woman. If I could be of any further assistance or provide you with any information, please feel free to contact me anytime. cc: Melia Marcelo MD, FACP MD Ray Ralph MD Joel Yellin, MD MTDD
[2017-01-12] MEDS ORDERED: SILV-4 TOP (13:24)
== END 2017-01-13 ==
LOC: M ONCR 11:10
PROVIDERS: ATTEND Radiology Radiation Oncology
DX: C50.112 Malignant neoplasm of central portion of left female breast (principal)

== ENCOUNTER → 2017-01-26 | Outpatient (CLI) | payer BC ==
[~2017-01-26] MED LIST changes: +ISOVUE-370 76% 100ML VIAL (Q9967) As Ordered ONE; +SILV-4 TOP
--- NOTE | 2017-01-27 06:33 | REP ---
Clinical: History of breast cancer follow-up lung nodules. Technique: Axial contrast enhanced images from the thoracic inlet to the upper abdomen using 100 ml Isovue 370 intravenous contrast material with coronal and sagittal re-formations. Comparison: 07/01/2016. Findings: The bilateral lung moya are well-aerated and relatively symmetric / clear. Subtle areas of linear plate-like fibroatelectatic changes noted in the right mid lung zone and lingula suggest chronic change. The previously identified scattered lung nodules including the 9 mm nodule in the lingula and smaller bilateral nodules have resolved. No new consolidation, nodule or mass lesion is appreciated. Small left lower lobe posterior subpleural density (image 62) remains stable/chronic. No pleural effusion/reaction. No pneumothorax. Tracheobronchial tree is patent. No axillary, hilar, or mediastinal adenopathy. Mediastinum demonstrates normal thoracic aorta, pulmonary vasculature and heart/pericardium. The patient is status post bilateral breast augmentation. Dazjhj-S-[id number] extends into the superior vena cava. Musculoskeletal structures demonstrate few scattered small sclerotic foci in the thoracic vertebral bodies which are nonspecific but may warrant reevaluation with bone scan given the patient's history of breast cancer. Limited evaluation of the upper abdomen demonstrates normal bilateral adrenal glands and evidence for prior cholecystectomy. Impression: 1. Lung moya appear relatively clear and the previously noted lung nodules have resolved. No new acute mediastinal or pleuroparenchymal process is appreciated. 2. Subtle sub centimeter sclerotic foci in the vertebral bodies are nonspecific and while these findings may represent chronic age-related changes, reevaluation including bone scan may be warranted given the patient's history of breast cancer. Signed by Malachi Abernathy MD 01/27/2017 05:36 A
== END ==
LOC: M RAD 11:14
PROVIDERS: ATTEND Radiology Radiation Oncology
DX: R91.8 Other nonspecific abnormal finding of lung field (principal)
CPT/HCPCS: 71260; Q9967

== ENCOUNTER → 2017-02-08 | Outpatient (CLI) | payer BC ==
[~2017-02-08] MED LIST changes: -ISOVUE-370 76% 100ML VIAL (Q9967) As Ordered ONE
--- NOTE | 2017-02-09 06:48 | RADONC ---
RADIATION ONCOLOGY FOLLOWUP NOTE DATE: 02/08/2017 CHART NUMBER: [id number] DIAGNOSIS: Left breast cancer. STAGE: IIIC, [id number]. ECOG PERFORMANCE STATUS: 0 FOLLOWUP NOTE: Ms. Elise is a very pleasant 56-year-old white female with the diagnosis of a stage IIIC, [id number] poorly differentiated infiltrating ductal carcinoma of the left breast who is presenting to us today for routine followup visit 1 month post completion of external beam radiation therapy. The patient presents today reporting that she is doing quite well with no complaints at this time related to her radiation therapy or disease. She has no chest wall or bone pain. REVIEW OF SYSTEMS: The patient's review of systems is noncontributory. She denies nausea, vomiting, fevers, chills, night sweats, diplopia, headaches, anxiety or depression, anorexia, weight loss, visual disturbances, chest pain, urinary or bowel difficulties, bone pain, or neurological problems. PHYSICAL EXAMINATION: The patient is a well-developed, well-nourished white female in no acute distress. HEENT exam is normocephalic, atraumatic. Extraocular movements are intact. There is no palpable cervical, supraclavicular, infraclavicular, axillary, or inguinal lymphadenopathy present. Lungs are clear to auscultation and percussion. Heart has a regular rate and rhythm. Abdomen is benign with no hepatosplenomegaly, masses, or tenderness. The patients chest wall reveals bilateral mastoidectomy scars present. There is no evidence of nodularity, ulceration, residual or recurrent disease. Skeletal examination reveals no tenderness to pressure or percussion of the bony skeleton. Extremities reveal no clubbing, cyanosis, or edema. Neurologic exam is grossly intact, as is the remainder of the physical examination. ASSESSMENT: The patient is clinically JARROD at this time and will be seen by us again in 6 months for further followup. She will also continue to be followed by her other physicians as well. cc: Melia Marcelo MD, FACP MD Ray Ralph MD Joel Yellin, MD
== END ==
LOC: M ONCR 14:21
PROVIDERS: ATTEND Radiology Radiation Oncology
DX: C50.112 Malignant neoplasm of central portion of left female breast (principal)

== ENCOUNTER → 2017-02-13 | Outpatient (REF) | payer BC ==
[2017-02-13 19:42] LABS: FREE T4 1.46 NG/DL (0.76-1.46)
== END ==
LOC: M LAB REF 17:50
PROVIDERS: ATTEND Family Medicine
DX: D64.81 Anemia due to antineoplastic chemotherapy (principal); E03.9 Hypothyroidism, unspecified

== ENCOUNTER → 2017-02-13 | Outpatient (REF) | payer BC | LOC: M LAB REF 17:51 | PROVIDERS: ATTEND Internal Medicine Medical Oncology | DX: C50.919 Malignant neoplasm of unspecified site of unspecified female breast (principal) ==

== ENCOUNTER → 2017-05-24 | Outpatient (REF) | payer BC ==
[2017-05-24 20:09] LABS: FREE T4 1.38 NG/DL (0.76-1.46)
== END ==
LOC: M SFHCADAM 13:49
PROVIDERS: ATTEND Family Medicine
DX: E03.9 Hypothyroidism, unspecified (principal)

== ENCOUNTER → 2017-06-05 | Outpatient (CLI) | payer BC ==
[~2017-06-05] MED LIST changes: +PROHANCE 279.3MG/ML 15ML VIAL (A9576) As Ordered ONE
--- NOTE | 2017-06-06 09:05 | REP ---
MRI brain without and with IV gadolinium: History: Breast carcinoma. Balance problems. Headaches. Comparison to priors. Comparison studies: There are no comparison brain MR or CT imaging studies available. Technique: Axial and sagittal imaging planes are utilized for T1 and T2-weighted scans. Sequences include spin-echo, fast spin echo, FLAIR, and diffusion weighted sequences. 13 ml of intravenous ProHance is administered. MRI findings: No bony calvarial lesion is seen. Craniocervical junction and upper cervical cord are normal in appearance. Medulla, asuncion, midbrain and cerebellar hemispheres are intact. Frazier-white differentiation pattern is normal above and below the tentorium. Diffusion weighted scans show no evidence of restricted diffusion to suggest acute ischemia. No abnormal white matter lesion is appreciated. No mass, infarction, hemorrhage or midline shift is seen. Post gadolinium enhanced images show enhancement in normal vascular structures. No abnormal gadolinium enhancement is appreciated. Impression: Negative brain MRI study without and with IV gadolinium. Signed by Ziggy Knox MD 06/06/2017 12:38 P
== END ==
LOC: M RAD 16:41
PROVIDERS: ATTEND Internal Medicine Medical Oncology
DX: R51 Headache (principal)

== ENCOUNTER → 2017-06-13 | Outpatient (CLI) | payer BC ==
[~2017-06-13] MED LIST changes: -PROHANCE 279.3MG/ML 15ML VIAL (A9576) As Ordered ONE
--- NOTE | 2017-06-13 10:59 | REP ---
Whole body radionuclide bone scan: History: Breast carcinoma. Bone pain. Comparison study is a chest CT study January 26, 2017. This described sub-centimeter sclerotic foci in the vertebral bodies. Comparison is also made with MRI study of the brain from June 05, 2017. Technique: 22.0 mCi technetium 99m MDP is injected and standard whole body imaging was acquired. Scintigraphic findings: There is uptake in bilateral kidneys and in the urinary bladder. There is a rounded focus of increased uptake in the left side of the calvarium in the posterior occipital bone region. This is suspicious for metastasis. The axial flare T2-weighted sequence from the recent MR study shows some subtle T2 hyperintensity in the diplo of the calvarium in this location. This scintigraphic focus is felt to be suspicious for a skeletal metastasis. There is a focus of increased uptake in the left maxilla which may reflect periodontal disease. No other abnormal focus of increased uptake is seen. Impression: Abnormal focus of increased uptake in the left occipital bone consistent with a bony calvarial metastasis. No other scintigraphic evidence of metastatic disease. Signed by Ziggy Knox MD 06/13/2017 04:15 P
== END ==
LOC: M RAD 07:35
PROVIDERS: ATTEND Internal Medicine Medical Oncology
DX: C50.919 Malignant neoplasm of unspecified site of unspecified female breast (principal); M25.511 Pain in right shoulder; M25.512 Pain in left shoulder; M79.621 Pain in right upper arm; M79.622 Pain in left upper arm
CPT/HCPCS: 78306; A9503

== ENCOUNTER → 2017-06-21 | Outpatient (CLI) | payer BC ==
--- NOTE | 2017-06-21 17:48 | REP ---
Whole body PET CT scan: Comparison radionuclide bone scan dated 06/13/2017, brain MRI of 06/05/2017, chest CT of 01/26/[address] of the abdomen pelvis of 05/05/2016. The patient has breast carcinoma with left modified radical mastectomy and right prophylactic mastectomy and May 192015. Whole-body scanning is performed from the skull base to the upper thighs. Neck and supraclavicular areas: There are no hypermetabolic foci. The a zone of increased skeletal uptake in the calvarium in the left occipital bone is excluded from the scan as the scan only includes the images from the skull base inferiorly. Chest: There are no hypermetabolic foci. Abdomen, pelvis and upper thighs: There are no hypermetabolic foci. No skeletal foci are identified. Impression: There are no hypermetabolic foci. Specifically there are no skeletal foci. However, the area of increased uptake of the radionuclide comparison bone scan in the left parietal area is not included on the current PET scan as the PET scan is performed from skull base inferiorly. The studies performed with 10 mCi of F 18 Signed by Prakash Enriquez MD 06/21/2017 05:38 P
== END ==
LOC: M PLARAD 12:07
PROVIDERS: ATTEND Internal Medicine Medical Oncology
DX: C50.919 Malignant neoplasm of unspecified site of unspecified female breast (principal); R07.9 Chest pain, unspecified; M85.80 Other specified disorders of bone density and structure, unspecified site; Z90.12 Acquired absence of left breast and nipple; Z90.11 Acquired absence of right breast and nipple
CPT/HCPCS: 78815; A9552

== ENCOUNTER → 2017-07-04 | Outpatient (CLI) | payer BC ==
[~2017-07-04] MED LIST changes: +ISOVUE-370 76% 100ML VIAL (Q9967) As Ordered ONE
--- NOTE | 2017-07-05 16:03 | REP ---
CT brain without and with IV contrast: History: Breast carcinoma. Question metastasis. CT contrast dose: Comparison is made of a with radionuclide bone scan from June 13, 2017 showing left parietal calvarial uptake posteriorly. CT contrast dose: 75 mL of intravenous Isovue [address] findings: Digital lateral graphic art technician view shows no abnormality. However, bone window settings demonstrate an ill-defined area of radiolucency DIP low space and possible thinning of the inner table of the skull in the left posterior parietal region. This corresponds with the area of increased uptake on recent bone scan and is compatible with early hematogenous metastasis. The area in question measures approximately 2.9 cm in greatest diameter. No other bony calvarial destructive lesion is seen. No soft tissue mass is associated with this on either side of the calvarium. There is minimal diffuse cerebral atrophy. Vascular calcification is noted mild in degree. The visualized paranasal sinuses are clear. No intraorbital abnormality is seen. There is no evidence of intracranial hemorrhage or mass. No extra-axial fluid collection or infarct is seen. Contrast enhanced study shows no evidence of abnormal brain parenchymal enhancement to suggest intracranial metastasis. Impression: There is an ill-defined radiolucent lesion in the left posterior parietal bone of the calvarium. This is subtle and of skeletal metastasis cannot be excluded. It is felt to correspond with bone scan findings. Signed by Ziggy Knox MD 07/05/2017 04:59 P
== END ==
LOC: M RAD 13:48
PROVIDERS: ATTEND Internal Medicine Medical Oncology
DX: C50.919 Malignant neoplasm of unspecified site of unspecified female breast (principal); R93.7 Abnormal findings on diagnostic imaging of other parts of musculoskeletal system
CPT/HCPCS: 70470; Q9967

== ENCOUNTER 2017-07-31 07:16 | Emergency (ER) | payer BC ==
[2017-07-31] MEDS: ACETAMINOPHEN 325 MG TAB PO (09:00)
[2017-07-31] MEDS: NS 500 ML IV (09:20)
[2017-07-31 09:31] LABS: BASO % 0.3 % (0.0-1.0); EOS # 0.1 10^3/uL (0.0-0.50); HEMATOCRIT 33.1 % (36.0-47.0); HEMOGLOBIN 11.6 g/dl (12.0-16.0); IMMATURE GRANULOCYTE % 0.1 % (0-0); LYMPH # 0.6 10^3/uL (1.5-4.5); LYMPH % 8.7 % (24.0-44.0); MEAN CORPUSCULAR HEMOGLOBIN 35.5 pg (27.0-33.0); MEAN CORPUSCULAR VOLUME 101.2 fl (80.0-96.0); MONO # 0.7 10^3/uL (0.0-0.8); MONO % 9.8 % (0.0-5.0); NEUTROPHILS # 5.4 10^3/uL (1.8-7.7); NEUTROPHILS % 79.1 % (36.0-66.0); PLATELET COUNT, AUTOMATED 100 10^3/uL (150-450); RED BLOOD COUNT 3.27 10^6/uL (4.00-5.40); RED CELL DISTRIBUTION WIDTH 12.3 % (11.5-14.5); WHITE BLOOD COUNT 6.9 10^3/uL (4.0-10.0)
[2017-07-31 09:37] LABS: APPEARANCE, URINE CLEAR (CLEAR); BACTERIA, URINE AUTO NEGATIVE (NEGATIVE); BILIRUBIN, URINE AUTO NEGATIVE (NEGATIVE); BLOOD, URINE BLOOD 1+ (NEGATIVE); COLOR, URINE STRAW (YELLOW); GLUCOSE, URINE (UA) AUTO NEGATIVE (NEGATIVE); KETONE, URINE AUTO NEGATIVE (NEGATIVE); LEUKOCYTE ESTERASE, URINE AUTO NEGATIVE (NEGATIVE); MUCUS, URINE SMALL (NEGATIVE); NITRITE, URINE AUTO NEGATIVE (NEGATIVE); PROTEIN, URINE AUTO NEGATIVE (NEGATIVE); RBC, URINE AUTO 2 /HPF (0-3); SPECIFIC GRAVITY URINE AUTO 1.006 (1.002-1.035); SQUAMOUS EPITHELIAL CELL UR AU 0 /HPF (0-6); UROBILINOGEN, URINE AUTO 0.2 mg/dL (0.0-2.0); WBC, URINE AUTO 0 /HPF (0-3)
[2017-07-31 09:42] LABS: INR 0.95; PARTIAL THROMBOPLASTIN TIME 27.5 SECONDS (26.8-37.9); PROTHROMBIN TIME 12.8 SECONDS (12.4-14.5)
[2017-07-31 09:58] LABS: ALBUMIN 3.9 GM/DL (3.2-5.2); ALBUMIN/GLOBULIN RATIO 1.34 (1.00-1.93); ALKALINE PHOSPHATASE 101 U/L (45-117); ALT/SGPT 12 U/L (12-78); ANION GAP 7 MEQ/L (8-16); AST/SGOT 7 U/L (7-37); BILIRUBIN,DIRECT 0.2 MG/DL (0.0-0.2); BILIRUBIN,TOTAL 0.7 MG/DL (0.2-1.0); BLOOD UREA NITROGEN 8 MG/DL (7-18); CALCIUM LEVEL 8.9 MG/DL (8.5-10.1); CARBON DIOXIDE LEVEL 29 MEQ/L (21-32); CHLORIDE LEVEL 105 MEQ/L (98-107); CREATININE FOR GFR 0.78 MG/DL (0.55-1.02); GLOMERULAR FILTRATION RATE > 60.0 (>51); GLUCOSE, FASTING 107 MG/DL (70-105); POTASSIUM SERUM 3.8 MEQ/L (3.5-5.1); SODIUM LEVEL 141 MEQ/L (136-145); TOTAL PROTEIN 6.8 GM/DL (6.4-8.2)
[2017-07-31 10:15] LABS: LACTIC ACID SEPSIS PROTOCOL 0.7 MMOL/L (0.4-2.0)
== END 2017-07-31 11:06 | disposition home or self-care (01) ==
LOC: M ED 07:16
DX: R50.9 Fever, unspecified (principal); H92.09 Otalgia, unspecified ear; C50.919 Malignant neoplasm of unspecified site of unspecified female breast; F41.9 Anxiety disorder, unspecified; F33.9 Major depressive disorder, recurrent, unspecified; Z79.899 Other long term (current) drug therapy; Z88.5 Allergy status to narcotic agent; Z88.8 Allergy status to other drugs, medicaments and biological substances; I25.2 Old myocardial infarction; Z98.890 Other specified postprocedural states; Z82.49 Family history of ischemic heart disease and other diseases of the circulatory system
CPT/HCPCS: 71046

== ENCOUNTER → 2017-08-25 | Outpatient (REF) | payer BC | LOC: M LAB REF 17:26 | DX: Z01.818 Encounter for other preprocedural examination (principal) | CPT/HCPCS: 87081 ==

== ENCOUNTER → 2017-08-30 | Outpatient (REF) | payer BC ==
[2017-08-30 18:47] LABS: BASO % 0.5 % (0.0-1.0); EOS # 0.1 10^3/uL (0.0-0.50); EOS % 2.9 % (0.0-3.0); HEMATOCRIT 35.1 % (36.0-47.0); HEMOGLOBIN 11.8 g/dl (12.0-16.0); IMMATURE GRANULOCYTE % 0.5 % (0-3.0); LYMPH # 0.7 10^3/uL (1.5-4.5); LYMPH % 17.6 % (24.0-44.0); MEAN CORPUSCULAR HEMOGLOBIN 35.2 pg (27.0-33.0); MEAN CORPUSCULAR HGB CONC 33.6 g/dl (32.0-36.5); MEAN CORPUSCULAR VOLUME 104.8 fl (80.0-96.0); MONO # 0.2 10^3/uL (0.0-0.8); MONO % 5.5 % (0.0-5.0); NEUTROPHILS # 3.1 10^3/uL (1.8-7.7); PLATELET COUNT, AUTOMATED 144 10^3/uL (150-450); RED BLOOD COUNT 3.35 10^6/uL (4.00-5.40); WHITE BLOOD COUNT 4.2 10^3/uL (4.0-10.0)
[2017-08-30 18:52] LABS: ALBUMIN 4.3 GM/DL (3.2-5.2); ALBUMIN/GLOBULIN RATIO 1.65 (1.00-1.93); ALKALINE PHOSPHATASE 123 U/L (45-117); ALT/SGPT 17 U/L (12-78); ANION GAP 7 MEQ/L (8-16); AST/SGOT 9 U/L (7-37); BILIRUBIN,TOTAL 0.5 MG/DL (0.2-1.0); BLOOD UREA NITROGEN 19 MG/DL (7-18); CALCIUM LEVEL 9.1 MG/DL (8.5-10.1); CARBON DIOXIDE LEVEL 30 MEQ/L (21-32); CHLORIDE LEVEL 105 MEQ/L (98-107); CREATININE FOR GFR 0.84 MG/DL (0.55-1.30); GLOMERULAR FILTRATION RATE > 60.0 (>51); GLUCOSE, FASTING 92 MG/DL (70-100); POTASSIUM SERUM 4.2 MEQ/L (3.5-5.1); SODIUM LEVEL 142 MEQ/L (136-145); TOTAL PROTEIN 6.9 GM/DL (6.4-8.2)
[2017-08-30 19:02] LABS: INR 0.94; PROTHROMBIN TIME 12.7 SECONDS (12.4-14.5)
[2017-08-30 19:03] LABS: PARTIAL THROMBOPLASTIN TIME 26.9 SECONDS (26.8-37.9)
== END ==
LOC: M LABDRAWC 18:07
DX: Z01.818 Encounter for other preprocedural examination (principal)
CPT/HCPCS: 80053

== ENCOUNTER → 2017-08-30 | Outpatient (CLI) | payer BC | LOC: M ADAMS 13:00 | DX: Z01.818 Encounter for other preprocedural examination (principal) | CPT/HCPCS: 71046 ==

== ENCOUNTER 2017-08-31 06:08 | Inpatient (IN) | payer BC ==
[2017-08-31] MEDS ORDERED: LR 1,000 ML IV (06:15)
[2017-08-31] MEDS ORDERED: ceFAZolin 2 GM/D5W 50 ML IV BAG (J0690 PER 500MG) As Ordered (07:07)
[2017-08-31] MEDS ORDERED: ePHEDrine INJ 50 MG/ML VIAL As Ordered (08:57)
[2017-08-31] MEDS ORDERED: fentaNYL 250 MCG/5 ML INJECTION (J3010) As Ordered (08:57)
[2017-08-31] MEDS ORDERED: dexameTHASONE 4 MG/ML 1ML VIAL (J1100) As Ordered (08:57)
[2017-08-31] MEDS ORDERED: ONDANSETRON 4MG/2ML VIAL (J2405) As Ordered (08:57)
[2017-08-31] MEDS ORDERED: MIDAZOLAM INJ 2 MG/2 ML VIAL (J2250) As Ordered (08:57)
[2017-08-31] MEDS ORDERED: ROCURONIUM BROMIDE 50 MG/5 ML VIAL As Ordered (08:57)
[2017-08-31] MEDS ORDERED: PROPOFOL 200 MG/20 ML VIAL As Ordered ×2 (08:57→10:27)
[2017-08-31] MEDS ORDERED: LIDOCAINE 2% INJ 100 MG/5 ML SDV (FOR ANES.) As Ordered (08:57)
[2017-08-31] MEDS: METHYLENE BLUE 0.5% (5MG/ML) 10 ML AMP (PROVAYBLUE)(Q9968 PER 1MG) As Ordered (09:00)
[2017-08-31] MEDS ORDERED: NEOSTIGMINE 10 MG/10 ML VIAL (J2710) As Ordered (09:25)
[2017-08-31] MEDS ORDERED: GLYCOPYRROLATE INJ 0.2 MG/ML 2 ML VIAL As Ordered ×2 (09:25)
[2017-08-31] MEDS: LIDOCAINE W/EPINEPHRINE 1% 20ML VIAL As Ordered (10:04)
[2017-08-31] MEDS: THROMBIN SOLN 20,000 UNITS KIT As Ordered (10:04)
[2017-08-31] MEDS ORDERED: KCL 20MEQ IN D5/0.45NS 1000ML 1,000 ML IV (11:00)
[2017-08-31] MEDS ORDERED: ACETAMINOPHEN 500 MG TAB PO (11:15)
[2017-08-31] MEDS ORDERED: ONDANSETRON 4MG/2ML VIAL (J2405) IV (11:30)
[2017-08-31] MEDS ORDERED: fentaNYL 100 MCG/2 ML INJECTION (J3010) IV (11:30)
[2017-08-31] MEDS ORDERED: PERCOCET 5MG/325MG TAB PO (11:30)
[2017-08-31] MEDS: LR 1,000 ML IV (11:30)
[2017-08-31] MEDS: LEVOTHYROXINE 88MCG TABLET (0.088 MG) PO (12:14)
[2017-08-31] MEDS: ESCITALOPRAM OXALATE 10 MG TAB (LEXAPRO) PO (12:15)
[2017-08-31] MEDS: ACETAMINOPHEN 500 MG TAB PO (12:16)
[2017-08-31] MEDS: PERCOCET 5MG/325MG TAB PO ×2 (13:45→17:39)
== END 2017-08-31 19:34 | disposition home or self-care (01) | DRG 320 ==
LOC: M OR 06:08 → M ICU 11:35
PROC: 0NB00ZX Excision of Skull, Open Approach, Diagnostic (ICD-10-PCS; principal; 2017-08-31 07:30)
PROC: 0NS004Z Reposition Skull with Internal Fixation Device, Open Approach (ICD-10-PCS; 2017-08-31 07:30)
PROC: 00B20ZX Excision of Dura Mater, Open Approach, Diagnostic (ICD-10-PCS; 2017-08-31 07:30)
DX: C79.51 Secondary malignant neoplasm of bone (principal); Z92.3 Personal history of irradiation; Z92.21 Personal history of antineoplastic chemotherapy

== ENCOUNTER → 2017-09-21 | Outpatient (CLI) | payer BC | LOC: M ONCR 13:05 | DX: C50.919 Malignant neoplasm of unspecified site of unspecified female breast (principal) | CPT/HCPCS: 70250 ==

== ENCOUNTER → 2017-10-12 | Outpatient (REF) | payer BC ==
[2017-10-12 14:31] LABS: FREE T4 1.19 NG/DL (0.76-1.46); RHEUMATOID FACTOR QUANT < 10.0 IU/ML (<15.0); THYROID STIMULATING HORMONE 0.158 uIU/ML (0.358-3.740); TOTAL PROTEIN 6.8 GM/DL (6.4-8.2)
[2017-10-12 14:43] LABS: VITAMIN B12 LEVEL 304 PG/ML (247-911)
[2017-10-12 14:44] LABS: FOLATE 8.9 NG/ML (>5.4)
[2017-10-12 14:46] LABS: ERYTHROCYTE SEDIMENTATION RATE 16 mm/hr (0-30)
[2017-10-12 15:22] LABS: ESTIMATED AVERAGE GLUCOSE 97 MG/DL (60-110)
[2017-10-13 14:16] LABS: ANTI DOUBLE STRAND-DNA AB 1 IU/mL (0-9); ANTINUCLEAR ANTIBODIES DIRECT Negative (Negative); RNP ANTIBODIES <0.2 AI (0.0-0.9); SJOGREN'S ANTI SS-A <0.2 AI (0.0-0.9); SJOGREN'S ANTI SS-B <0.2 AI (0.0-0.9); SMITH ANTIBODIES <0.2 AI (0.0-0.9)
[2017-10-16 08:07] LABS: VITAMIN E LEVEL 18.5 mg/L (5.3-16.8)
[2017-10-17 00:07] LABS: VITAMIN B1 LEVEL WHOLE BLOOD 105.9 nmol/L (66.5-200.0); VITAMIN B6,PYRIDOXAL PHOSPHATE 10.6 ug/L (2.0-32.8)
[2017-10-17 11:29] LABS: ALPHA-1-GLOBULIN % 3.9 % (2.9-4.9)
[2017-10-17 11:30] LABS: ALBUMIN 4.35 GM/DL (3.29-5.55); ALPHA-1-GLOBULINS 0.27 GM/DL (0.17-0.41); ALPHA-2-GLOBULINS 0.68 GM/DL (0.42-0.99); BETA-1-GLOBULINS % 5.9 % (4.7-7.2); BETA-2-GLOBULINS 0.33 GM/DL (0.19-0.55); BETA-2-GLOBULINS % 4.8 % (3.2-6.5); GAMMA GLOBULIN % 11.4 % (11.1-18.8); GAMMA GLOBULINS 0.78 GM/DL (0.65-1.58)
== END ==
LOC: M LABNEURO 10:51
DX: R20.0 Anesthesia of skin (principal); Z13.1 Encounter for screening for diabetes mellitus
CPT/HCPCS: 82746

== ENCOUNTER → 2017-10-12 | Outpatient (REF) | payer BC ==
[2017-10-12 14:04] LABS: BASO % 0.4 % (0.0-1.0); EOS # 0.1 10^3/uL (0.0-0.50); EOS % 1.8 % (0.0-3.0); HEMATOCRIT 33.3 % (36.0-47.0); HEMOGLOBIN 11.5 g/dl (12.0-15.5); IMMATURE GRANULOCYTE % 0.4 % (0-3.0); LYMPH # 0.7 10^3/uL (1.5-4.5); MEAN CORPUSCULAR HEMOGLOBIN 35.1 pg (27.0-33.0); MEAN CORPUSCULAR HGB CONC 34.5 g/dl (32.0-36.5); MEAN CORPUSCULAR VOLUME 101.5 fl (80.0-96.0); MONO # 0.1 10^3/uL (0.0-0.8); MONO % 4.9 % (0.0-5.0); NEUTROPHILS # 1.9 10^3/uL (1.8-7.7); NEUTROPHILS % 66.5 % (36.0-66.0); PLATELET COUNT, AUTOMATED 103 10^3/uL (150-450); RED BLOOD COUNT 3.28 10^6/uL (4.00-5.40); RED CELL DISTRIBUTION WIDTH 12.5 % (11.5-14.5); WHITE BLOOD COUNT 2.9 10^3/uL (4.0-10.0)
[2017-10-12 14:10] LABS: POSITIVE MORPH POS FLAG
== END ==
LOC: M LABNEURO 13:58
DX: Z01.818 Encounter for other preprocedural examination (principal)
CPT/HCPCS: 85027

== ENCOUNTER → 2017-11-28 | Outpatient (REF) | payer BC ==
[2017-11-28 18:10] LABS: INR 0.85; PROTHROMBIN TIME 11.7 SECONDS (12.4-14.5)
[2017-11-28 18:11] LABS: PARTIAL THROMBOPLASTIN TIME 24.8 SECONDS (26.8-37.9)
== END ==
LOC: M LAB REF 16:23
DX: C79.51 Secondary malignant neoplasm of bone (principal); C50.412 Malignant neoplasm of upper-outer quadrant of left female breast
CPT/HCPCS: 85610

== ENCOUNTER → 2017-12-01 | Outpatient (CLI) | payer BC | LOC: M RAD 09:37 | DX: C50.919 Malignant neoplasm of unspecified site of unspecified female breast (principal) | CPT/HCPCS: 78306 ==

== ENCOUNTER → 2017-12-07 | Outpatient (CLI) | payer BC ==
[~2017-12-07] MED LIST changes: -ACET50TAOT PO; -Compazine; -FERR325T3 PO; -ISOVUE-370 76% 100ML VIAL (Q9967) As Ordered ONE; -LEVO137T2 PO; -LEXA1TAB PO; -LIDO2.5C15 EXT; +LIDOCAINE 2% MDV 20 ML VIAL As Ordered; +MIDAZOLAM INJ 2 MG/2 ML VIAL (J2250) As Ordered; -PEG6SYR SC; -PROC10TA PO; -PROC1SP PR; -SILV-4 TOP; -VITA500T PO; -VITMTA PO; -XANA0.25 PO; -ZOFR20TA PO; +ceFAZolin 1GM INJ (J0690 PER 500MG) As Ordered; +fentaNYL 100 MCG/2 ML INJECTION (J3010) As Ordered
== END | disposition home or self-care (01) ==
LOC: M IRPRO 09:41
DX: C50.919 Malignant neoplasm of unspecified site of unspecified female breast (principal); C79.51 Secondary malignant neoplasm of bone
CPT/HCPCS: 36561

== ENCOUNTER → 2018-01-08 | Outpatient (CLI) | payer BC ==
[~2018-01-08] MED LIST changes: +GASTROGRAFIN SOLUTION 30ML (Q9963) As Ordered; +ISOVUE-370 76% 100ML VIAL (Q9967) As Ordered; -LIDOCAINE 2% MDV 20 ML VIAL As Ordered; -MIDAZOLAM INJ 2 MG/2 ML VIAL (J2250) As Ordered; -ceFAZolin 1GM INJ (J0690 PER 500MG) As Ordered; -fentaNYL 100 MCG/2 ML INJECTION (J3010) As Ordered
== END ==
LOC: M RAD 16:02
DX: C50.919 Malignant neoplasm of unspecified site of unspecified female breast (principal); C79.51 Secondary malignant neoplasm of bone
CPT/HCPCS: Q9963

== ENCOUNTER → 2018-02-09 | Outpatient (REF) | payer BC | LOC: M LAB REF 17:17 | DX: C50.412 Malignant neoplasm of upper-outer quadrant of left female breast (principal); C79.51 Secondary malignant neoplasm of bone | CPT/HCPCS: 86300 ==

== ENCOUNTER → 2018-03-02 | Outpatient (REF) | payer BC ==
[2018-03-02 13:40] LABS: FERRITIN 181 NG/ML (8-252); IRON (FE) 85 UG/DL (50-170); PERCENT SATURATION 38.5 % (13.2-45.0); TOTAL IRON BINDING CAPACITY 221 UG/DL (250-450)
== END ==
LOC: M LAB REF 12:58
DX: C50.412 Malignant neoplasm of upper-outer quadrant of left female breast (principal); C79.51 Secondary malignant neoplasm of bone
CPT/HCPCS: 83550

== ENCOUNTER → 2018-03-06 | Outpatient (CLI) | payer BC ==
[~2018-03-06] MED LIST changes: -GASTROGRAFIN SOLUTION 30ML (Q9963) As Ordered; -ISOVUE-370 76% 100ML VIAL (Q9967) As Ordered; +PROHANCE 279.3MG/ML 15ML VIAL (A9576) As Ordered
== END ==
LOC: M RAD 06:50
DX: C50.919 Malignant neoplasm of unspecified site of unspecified female breast (principal); C79.31 Secondary malignant neoplasm of brain
CPT/HCPCS: A9576

== ENCOUNTER → 2018-03-27 | Outpatient (CLI) | payer BC | LOC: M RAD 09:49 | DX: C50.919 Malignant neoplasm of unspecified site of unspecified female breast (principal) | CPT/HCPCS: 78306 ==

== ENCOUNTER → 2018-04-27 | Outpatient (CLI) | payer BC ==
[~2018-04-27] MED LIST changes: +GASTROGRAFIN SOLUTION 30ML (Q9963) As Ordered; +ISOVUE-370 76% 100ML VIAL (Q9967) As Ordered; -PROHANCE 279.3MG/ML 15ML VIAL (A9576) As Ordered
== END ==
LOC: M RAD 11:07
DX: C50.412 Malignant neoplasm of upper-outer quadrant of left female breast (principal); R10.9 Unspecified abdominal pain
CPT/HCPCS: Q9963

== ENCOUNTER → 2018-05-09 | Outpatient (CLI) | payer BC | LOC: M RAD 07:08 | DX: K76.9 Liver disease, unspecified (principal); C50.412 Malignant neoplasm of upper-outer quadrant of left female breast; C79.51 Secondary malignant neoplasm of bone | CPT/HCPCS: 70260 ==

== ENCOUNTER → 2018-05-18 | Outpatient (CLI) | payer BC ==
[~2018-05-18] MED LIST changes: -GASTROGRAFIN SOLUTION 30ML (Q9963) As Ordered; -ISOVUE-370 76% 100ML VIAL (Q9967) As Ordered; +PROHANCE 279.3MG/ML 15ML VIAL (A9576) As Ordered
== END ==
LOC: M RAD 15:15
DX: C50.412 Malignant neoplasm of upper-outer quadrant of left female breast (principal); C79.51 Secondary malignant neoplasm of bone
CPT/HCPCS: A9576

== ENCOUNTER → 2018-05-21 | Outpatient (CLI) | payer BC ==
[~2018-05-21] MED LIST changes: +LIDOCAINE 1% MDV 20ML VIAL As Ordered; -PROHANCE 279.3MG/ML 15ML VIAL (A9576) As Ordered
== END ==
LOC: M RADPRO 09:22
DX: C78.7 Secondary malignant neoplasm of liver and intrahepatic bile duct (principal); C50.412 Malignant neoplasm of upper-outer quadrant of left female breast; C79.51 Secondary malignant neoplasm of bone; Z88.5 Allergy status to narcotic agent; Z88.8 Allergy status to other drugs, medicaments and biological substances; Z79.899 Other long term (current) drug therapy
CPT/HCPCS: 47000

== ENCOUNTER → 2018-06-01 | Outpatient (CLI) | payer BC ==
[~2018-06-01] MED LIST changes: +ISOVUE-370 76% 100ML VIAL (Q9967) As Ordered; -LIDOCAINE 1% MDV 20ML VIAL As Ordered
== END ==
LOC: M RAD 10:24
DX: R06.02 Shortness of breath (principal); J90 Pleural effusion, not elsewhere classified; Z98.1 Arthrodesis status; C50.919 Malignant neoplasm of unspecified site of unspecified female breast
CPT/HCPCS: Q9967

== ENCOUNTER 2018-06-09 10:20 | Emergency (ER) | payer BC ==
[2018-06-09 12:41] LABS: KETONE, URINE AUTO RFX NEGATIVE (NEGATIVE); LEUKOCYTE ESTERASE UR AUTO RFX NEGATIVE (NEGATIVE); NITRITE, URINE AUTO RFX NEGATIVE (NEGATIVE); RBC, URINE AUTO RFX 1 /HPF (0-3); SPECIFIC GRAVITY UR AUTO RFX 1.008 (1.002-1.035); SQUAM EPITHELIAL CELL UR AURFX 0 /HPF (0-6); WBC, URINE AUTO RFX 0 /HPF (0-3)
[2018-06-09] MEDS: METOCLOPRAMIDE INJ 10MG/2ML VIAL (J2765) IV (13:20)
[2018-06-09] MEDS: fentaNYL 100 MCG/2 ML INJECTION (J3010) IV (13:21)
[2018-06-09] MEDS: NS 1,000 ML IV (13:21)
[2018-06-09 13:24] LABS: BASO % 0.3 % (0.0-1.0); EOS # 0.1 10^3/uL (0.0-0.50); HEMATOCRIT 32.2 % (36.0-47.0); HEMOGLOBIN 10.7 g/dl (12.0-15.5); IMMATURE GRANULOCYTE % 0.6 % (0-3.0); LYMPH # 0.8 10^3/uL (1.5-4.5); LYMPH % 11.9 % (24.0-44.0); MEAN CORPUSCULAR HGB CONC 33.2 g/dl (32.0-36.5); MEAN CORPUSCULAR VOLUME 105.2 fl (80.0-96.0); MONO # 0.6 10^3/uL (0.0-0.8); MONO % 8.4 % (0.0-5.0); NEUTROPHILS # 5.2 10^3/uL (1.8-7.7); NEUTROPHILS % 77.8 % (36.0-66.0); PLATELET COUNT, AUTOMATED 155 10^3/uL (150-450); RED BLOOD COUNT 3.06 10^6/uL (4.00-5.40); RED CELL DISTRIBUTION WIDTH 15.9 % (11.5-14.5); WHITE BLOOD COUNT 6.7 10^3/uL (4.0-10.0)
[2018-06-09 13:44] LABS: INR 1.05; PROTHROMBIN TIME 13.9 SECONDS (12.1-14.4)
[2018-06-09 13:45] LABS: PARTIAL THROMBOPLASTIN TIME 34.5 SECONDS (25.4-37.6)
[2018-06-09 13:57] LABS: ALBUMIN 3.2 GM/DL (3.2-5.2); ALBUMIN/GLOBULIN RATIO 0.97 (1.00-1.93); ALKALINE PHOSPHATASE 88 U/L (45-117); ALT/SGPT 27 U/L (12-78); ANION GAP 7 MEQ/L (8-16); AST/SGOT 33 U/L (7-37); BILIRUBIN,DIRECT 0.2 MG/DL (0.0-0.2); BILIRUBIN,TOTAL 0.7 MG/DL (0.2-1.0); BLOOD UREA NITROGEN 9 MG/DL (7-18); CALCIUM LEVEL 7.9 MG/DL (8.8-10.2); CARBON DIOXIDE LEVEL 25 MEQ/L (21-32); CHLORIDE LEVEL 108 MEQ/L (98-107); CK-MB VALUE MASS < 1.0 NG/ML (<3.6); CPK CREATINE PHOSPHOKINASE 99 U/L (26-192); CREATININE FOR GFR 0.67 MG/DL (0.55-1.30); GLOMERULAR FILTRATION RATE > 60.0 (>45); GLUCOSE, FASTING 101 MG/DL (70-100); LIPASE 44 U/L (73-393); MB/CK RELATIVE INDEX 1.01 (< OR =4); SODIUM LEVEL 140 MEQ/L (136-145); TOTAL PROTEIN 6.5 GM/DL (6.4-8.2); TROPONIN I < 0.02 NG/ML (< 0.10)
[2018-06-09] MEDS: SODIUM CHLORIDE 0.9% INJ 10 ML SYR IV (15:30)
== END 2018-06-09 15:32 | disposition home or self-care (01) ==
LOC: M ED 10:20
DX: G43.909 Migraine, unspecified, not intractable, without status migrainosus (principal); C50.919 Malignant neoplasm of unspecified site of unspecified female breast; I25.2 Old myocardial infarction; F33.9 Major depressive disorder, recurrent, unspecified; F41.9 Anxiety disorder, unspecified; Z92.21 Personal history of antineoplastic chemotherapy; Z88.5 Allergy status to narcotic agent; Z88.8 Allergy status to other drugs, medicaments and biological substances
CPT/HCPCS: J2765

== ENCOUNTER → 2018-06-11 | Outpatient (CLI) | payer BC ==
[~2018-06-11] MED LIST changes: -ISOVUE-370 76% 100ML VIAL (Q9967) As Ordered; +PROHANCE 279.3MG/ML 15ML VIAL (A9576) As Ordered
== END ==
LOC: M RAD 13:14
DX: I67.82 Cerebral ischemia (principal); Z98.890 Other specified postprocedural states; C50.919 Malignant neoplasm of unspecified site of unspecified female breast
CPT/HCPCS: A9576

== ENCOUNTER → 2018-07-24 | Outpatient (CLI) | payer BC ==
[~2018-07-24] MED LIST changes: +ACET500T15 PO; +CALC500T36 PO; +CYCL5TAB PO; +Compazine; +EMLA CREAM 5GM (LIDOCAINE/PRILOCAINE) As Ordered ONE; +EXEM25TA PO; +FENT12DI8 TOP; +FENT1DIS14 TOP; +FERR325T3 PO; +FURO20TA2 PO; +GASTROGRAFIN SOLUTION 30ML (Q9963) As Ordered ONE; +ISOVUE-370 76% 100ML VIAL (Q9967) As Ordered ONE; +LEVO137T2 PO; +LEXA1TAB PO; +LIDO2.5C15 EXT; +MELO15TA28 PO; +METO10TA2 PO; +MORP15TA2 PO; +MORP1TAB19 PO; +MORP30TASA PO; +NEUR100C PO; +OSEL75CA2 PO; +OXYC1TAB23 PO; +PEG6SYR SC; +PERC5TAB12; +PROC10TA4 PO; +PROC1SP PR; -PROHANCE 279.3MG/ML 15ML VIAL (A9576) As Ordered; +PROT20TA11 PO; +SILV-4 TOP; +VITA500T PO; +VITMTA PO; +XANA0.25 PO; +ZOFR4TAB16 PO
--- NOTE | 2018-07-25 06:47 | REP ---
Clinical: Metastatic breast cancer. Technique: Axial contrast enhanced images from the lung bases to the pubic symphysis using oral (per protocol) and 100 ml Isovue 370 intravenous contrast material with coronal and sagittal re-formations. Comparison: 04/27/2018. Findings: Current examination demonstrates multiple new enhancing hepatic lesions throughout the right and left lobe consistent with metastatic disease. Largest lesion identified with in the right lobe measures roughly 3.1 cm maximal diameter (increased from 1.9 cm). Underlying fatty infiltration to the liver suggested. Spleen, pancreas, bilateral adrenal glands and kidneys are normal. Evidence for prior cholecystectomy. The enteric system is without obstruction or acute inflammatory process. Normal terminal ileum and appendix identified in the right lower quadrant. Pelvis demonstrates normal bladder and age-appropriate uterus/adnexa. No ascites. No obvious intraperitoneal or retroperitoneal adenopathy. Surrounding musculoskeletal structures demonstrate degenerative changes without focal osseous abnormality. Impression: Increased metastatic lesions throughout the liver as compared to 04/27/2018. Electronically Signed by Malachi Abernathy MD 07/25/2018 06:38 A
--- NOTE | 2018-07-25 06:57 | REP ---
Clinical: Metastatic breast cancer. Technique: Axial contrast enhanced images from the thoracic inlet to the upper abdomen with coronal and sagittal re-formations using 100 ml Isovue 370 intravenous contrast material. Comparison: 06/01/2018. Findings: [id number] identified with tip in the SVC/right atrium. Evidence of prior bilateral mammoplasty. No axillary, hilar, or mediastinal adenopathy appreciated. Pulmonary vasculature is unremarkable. Heart and pericardium are within normal limits. Lung moya demonstrate scattered fibroatelectatic changes similar to prior examination. There is a small new irregular area of opacity in the medial right lower lobe (images [id number]) which is otherwise nonspecific in appearance. No effusion. No pneumothorax. Tracheobronchial tree is patent. Osseous structures without focal abnormality identified. Impression: 1. Small new focus of opacity in the medial right lower lobe is nonspecific but raises the possibility of metastatic disease given the patient's history. Electronically Signed by Malachi Abernathy MD 07/25/2018 06:48 A
== END ==
LOC: M RAD 13:40
PROVIDERS: ATTEND Internal Medicine Medical Oncology
DX: C78.7 Secondary malignant neoplasm of liver and intrahepatic bile duct (principal); R91.8 Other nonspecific abnormal finding of lung field
CPT/HCPCS: 71260; 74177; Q9963; Q9967

== ENCOUNTER → 2018-08-10 | Outpatient (REF) | payer BC ==
[~2018-08-10] MED LIST changes: -EMLA CREAM 5GM (LIDOCAINE/PRILOCAINE) As Ordered ONE; -GASTROGRAFIN SOLUTION 30ML (Q9963) As Ordered ONE; -ISOVUE-370 76% 100ML VIAL (Q9967) As Ordered ONE; +ROPI1TAB PO
[2018-08-10 10:15] LABS: FREE T4 1.03 NG/DL (0.76-1.46); THYROID STIMULATING HORMONE 0.813 uIU/ML (0.358-3.740)
== END ==
LOC: M SFHCADAM 09:00
PROVIDERS: ATTEND Family Medicine
DX: E03.9 Hypothyroidism, unspecified (principal)

== ENCOUNTER → 2018-09-27 | Outpatient (CLI) | payer BC ==
[~2018-09-27] MED LIST changes: +DURA50DI2 TOP
--- NOTE | 2018-09-28 02:40 | REP ---
Clinical: Pleural effusion. Technique: PA and lateral. Comparison: 06/09/2018. Findings: Mediastinum and cardiac silhouette are normal. Kjhlef-M-[id number] identified with tip in the SVC. Lung moya are clear. No focal consolidation, effusion, or pneumothorax. Skeletal structures are intact. Impression: No focal consolidation or effusion. Electronically Signed by Malachi Abernathy MD 09/28/2018 02:31 A
== END ==
LOC: M RAD 13:53 → M LAB 13:53
PROVIDERS: ATTEND Family Medicine
DX: J90 Pleural effusion, not elsewhere classified (principal)

== ENCOUNTER → 2018-10-31 | Outpatient (CLI) | payer BC ==
[~2018-10-31] MED LIST changes: +CALC12504 PO; -CALC500T36 PO; +MORP15TASA PO; +OXYC-517 PO
--- NOTE | 2018-10-31 14:10 | REP ---
PET/CT: HISTORY: Restaging breast carcinoma. 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 COMPARISONS: Comparison PET/CT study is from June 21, 2017. TECHNIQUE: 59 minutes following the intravenous injection of a 9.23 mCi dose of F-18 FDG, three-dimensional PET scintigraphy is acquired from the skull base to the proximal thighs. Triplanar noncontrast CT scanning is acquired through the same anatomic range for attenuation correction, and image registration with scan parameters optimized to minimize radiation exposure to the patient. PET scintigraphy and CT datasets were fused and displayed on a workstation with multiplanar and projection display capability. PET/CT FINDINGS: In the known left and right lobe hepatic lesions, there is only minimally increased FDG accumulation within the liver. Maximum standard uptake value in the region of the right hepatic lesion is 3.81 and that in the region of the left hepatic lesion is 3.54. Background uninvolved liver activity is in the range of 2.93. No other abnormal hypermetabolic uptake is seen in the abdomen or pelvis. No abnormal intrathoracic hypermetabolic uptake is observed. Head and neck soft tissues are unremarkable. The scan is otherwise unremarkable. IMPRESSION: Minimally increased uptake at the site of two of the known liver lesions seen on recent CT. No other abnormal hypermetabolic uptake is appreciated. Electronically Signed by Ziggy Knox MD 10/31/2018 08:26 P
== END ==
LOC: M PLARAD 08:11
PROVIDERS: ATTEND Internal Medicine Hematology & Oncology
DX: C50.419 Malignant neoplasm of upper-outer quadrant of unspecified female breast (principal); C78.7 Secondary malignant neoplasm of liver and intrahepatic bile duct; Z92.21 Personal history of antineoplastic chemotherapy
CPT/HCPCS: 78815; A9552

== ENCOUNTER → 2018-11-12 | Outpatient (CLI) | payer BC ==
[~2018-11-12] MED LIST changes: +CBD OIL; +ISOVUE-370 76% 100ML VIAL (Q9967) As Ordered ONE
--- NOTE | 2018-11-12 14:13 | REP ---
CT thoracic spine without contrast. HISTORY: Thoracic pain COMPARISON : None There is no acute fracture or subluxation. There is no disc bulge or herniation. The spinal canal and neural foramina are patent. There is loss of height of several mid and lower thoracic intervertebral discs. Anterior osteophytes are present in the mid and lower thoracic spine. IMPRESSION: There is no acute fracture or subluxation. Electronically Signed by Eliel Mahoney MD 11/12/2018 02:05 P
== END ==
LOC: M RAD 13:35
PROVIDERS: ATTEND Internal Medicine Hematology & Oncology
DX: M54.6 Pain in thoracic spine (principal); C50.919 Malignant neoplasm of unspecified site of unspecified female breast
CPT/HCPCS: 72129; Q9967

== ENCOUNTER → 2018-12-06 | Outpatient (CLI) | payer BC ==
[~2018-12-06] MED LIST changes: -ISOVUE-370 76% 100ML VIAL (Q9967) As Ordered ONE; +MORP-38 PO; +OXYC15TA76 PO
--- NOTE | 2018-12-06 09:13 | REP ---
Clinical: Abdominal pain and distension. Technique: Frazier scale ultrasound using curved array transducer. Findings: The liver is relatively normal in parenchymal echo texture and size. A subtle 7 mm faint lesion in the left lobe cannot be excluded. Previously noted masses are not identified on current exam. The patient is status post cholecystectomy. No biliary ductal dilatation noted and the common bile duct measures 6.3 mm diameter. Spleen and pancreas are normal in contour, size, echogenicity without splenic or pancreatic lesion identified. Bilateral kidneys are normal in reniform shape without hydronephrosis. Right kidney measures 9.8 x 5.0 x 5.3 cm. Left kidney measures 9.7 x 4.5 x 5.0 cm. Abdominal aorta appears normal and measures 2.5 cm maximal diameter. No ascites. Impression: Faint subcentimeter lesion within the left lobe of the liver. Given the patient's history of known hepatic metastatic disease, a finding may reflect malignancy. Electronically Signed by Malachi Abernathy MD 12/06/2018 09:05 A
== END ==
LOC: M RAD 07:47
PROVIDERS: ATTEND Internal Medicine Hematology & Oncology
DX: C50.412 Malignant neoplasm of upper-outer quadrant of left female breast (principal); K76.89 Other specified diseases of liver

== ENCOUNTER 2019-01-08 18:34 | Inpatient (IN) | payer BC ==
[~2019-01-08] VITALS: Ht 157.5 cm; Wt 75.0 kg
[2019-01-08] MEDS ORDERED: METH5TA (18:45)
[2019-01-08 19:50] LABS: BASO % 0.2 % (0.0-1.0); EOS # 0.2 10^3/uL (0.0-0.50); HEMATOCRIT 34.4 % (36.0-47.0); HEMOGLOBIN 11.5 g/dl (12.0-15.5); LYMPH # 0.8 10^3/uL (1.5-4.5); LYMPH % 9.4 % (24.0-44.0); MEAN CORPUSCULAR HEMOGLOBIN 35.4 pg (27.0-33.0); MEAN CORPUSCULAR HGB CONC 33.4 g/dl (32.0-36.5); MEAN CORPUSCULAR VOLUME 105.8 fl (80.0-96.0); MONO # 0.6 10^3/uL (0.0-0.8); NEUTROPHILS # 6.6 10^3/uL (1.8-7.7); RED BLOOD COUNT 3.25 10^6/uL (4.00-5.40); WHITE BLOOD COUNT 8.2 10^3/uL (4.0-10.0)
[2019-01-08 20:15] LABS: PLATELET COUNT, AUTOMATED 93 10^3/uL (150-450)
[2019-01-08 20:24] LABS: ALBUMIN 3.8 GM/DL (3.2-5.2); ALT/SGPT 42 U/L (12-78); BILIRUBIN,DIRECT 0.2 MG/DL (0.0-0.2); BILIRUBIN,TOTAL 0.7 MG/DL (0.2-1.0); BLOOD UREA NITROGEN 10 MG/DL (7-18); CALCIUM LEVEL 9.1 MG/DL (8.8-10.2); CARBON DIOXIDE LEVEL 28 MEQ/L (21-32); CHLORIDE LEVEL 100 MEQ/L (98-107); CREATININE FOR GFR 0.98 MG/DL (0.55-1.30); GLOMERULAR FILTRATION RATE > 60.0 (>45); GLUCOSE, FASTING 96 MG/DL (70-100); LIPASE 45 U/L (73-393); POTASSIUM SERUM 4.2 MEQ/L (3.5-5.1); SODIUM LEVEL 136 MEQ/L (136-145); TOTAL PROTEIN 7.5 GM/DL (6.4-8.2)
[2019-01-08] MEDS ORDERED: D5W/0.9% SODIUM CHLORIDE 1,000 ML IV SCH (21:00)
[2019-01-08 21:05] LABS: INR 1.09; PROTHROMBIN TIME 13.8 SECONDS (11.8-14.0)
--- NOTE | 2019-01-08 21:15 | REP ---
Clinical: Altered mental status. Thrombocytopenia. Findings: Age-related atrophy and microvascular ischemic changes are appreciated. The ventricles and sulci are symmetric. Frazier-white differentiation is maintained. There is no evidence for acute intracranial hemorrhage, mass/mass effect, pathology or infarction. No extra-axial fluid collection. Calvarium is intact. Paranasal sinuses and mastoid air cells are clear. Impression: Age related atrophy and microvascular ischemic changes. No acute intracranial hemorrhage, infarction, or mass/mass effect. Electronically Signed by Malachi Abernathy MD 01/08/2019 09:07 P
--- NOTE | 2019-01-08 21:21 | REP ---
Clinical: Right-sided chest pain. History of breast cancer. Technique: Axial noncontrast images from the thoracic inlet to the upper abdomen with coronal and sagittal re-formations. Comparison: 07/24/2018. Findings: Prominent pulmonary vasculature with elements of cephalization, increased interstitial markings, and vague scattered ground-glass opacities suggest early pulmonary vascular congestion and mild interstitial edema. No focal consolidation, obvious nodule or mass lesion. No effusion. No pneumothorax. The heart is upper limits of normal in size without pericardial effusion. Minimal atherosclerotic changes to the thoracic aorta noted without aneurysm. No obvious adenopathy. Musculoskeletal structures demonstrate age-related changes without focal osseous abnormality. Evidence for bilateral mastectomy with reconstructive surgery. [id number] identified with tip in the SVC. Limited upper abdomen demonstrates normal bilateral adrenal glands and evidence for prior cholecystectomy. Impression: 1. Findings suggest elements of pulmonary vascular congestion and interstitial edema. Heart appears to be upper limits of normal in size. 2. No pulmonary parenchymal consolidation, significant atelectasis, or pleural effusion. No adenopathy. Electronically Signed by Malachi Abernathy MD 01/08/2019 09:13 P
--- NOTE | 2019-01-08 21:25 | REP ---
Clinical: Right-sided abdominal pain. History of breast cancer. Technique: Axial noncontrast images from the lung bases to the pubic symphysis with coronal and sagittal re-formations. Comparison: 07/24/2018. Findings: Lung bases suggest pulmonary vascular congestion and early interstitial edema. Liver, spleen, pancreas, bilateral adrenal glands and kidneys are relatively normal for noncontrast evaluation. Previously identified enhancing hepatic metastatic foci are not detectable by noncontrast evaluation. Evidence of prior cholecystectomy noted. The enteric system suggests moderate fecal stasis without bowel obstruction or acute inflammatory process. Pelvis demonstrates normal bladder and age-appropriate uterus/adnexa. No pelvic fluid or ascites. No free air. No obvious intraperitoneal or retroperitoneal adenopathy. Abdominal aorta without aneurysm. Musculoskeletal structures demonstrate degenerative appearing changes. Impression: 1. No obvious acute abdominopelvic pathology appreciated. 2. Known hepatic metastatic foci on prior contrast enhanced CT are not visible by noncontrast evaluation. 3. Moderate fecal stasis and possible constipation. 4. No ascites, focal inflammatory stranding, or adenopathy. Electronically Signed by Malachi Abernathy MD 01/08/2019 09:17 P
[2019-01-09] VITALS (12 sets, daily range): BP systolic 101–122; BP diastolic 53–61; O2SAT 88–98
[2019-01-09] MEDS ORDERED: FLEET ENEMA PR PRN (01:45)
[2019-01-09] MEDS ORDERED: MOM 30ML SUSPENSION UDC PO PRN (01:45)
[2019-01-09] MEDS ORDERED: MORPHINE 30 MG TAB **MSIR PO PRN (02:15)
[2019-01-09] MEDS ORDERED: ONDANSETRON 4MG/2ML VIAL (J2405) IV PRN (02:15)
[2019-01-09] MEDS ORDERED: HYDROmorphone HCL 2 MG/ML 1ML VIAL (J1170) IV PRN (02:15)
[2019-01-09] MEDS ORDERED: PROCHLORPERAZINE 10 MG/2 ML VIAL (J0780) IV PRN (02:15)
[2019-01-09] MEDS ORDERED: SYNT88TA2 PO (02:30)
[2019-01-09] MEDS ORDERED: CYCL5TAB PO (02:30)
[2019-01-09] MEDS ORDERED: SPIR-10 PO (02:30)
[2019-01-09] MEDS ORDERED: PANT-23 PO (02:30)
[2019-01-09] MEDS ORDERED: OXYC15TA76 PO (02:30)
[2019-01-09] MEDS ORDERED: METH5TA PO (02:30)
[2019-01-09] MEDS ORDERED: LIDO5OIN19 EXT (02:30)
[2019-01-09] MEDS ORDERED: GABA-1171 PO ×2 (02:30)
[2019-01-09] MEDS ORDERED: PROC10TA4 PO (02:30)
--- NOTE | 2019-01-09 03:00 | HPEPDOC ---
General Date of Admission Jan 09, 2019 at 01:38 Date of Service: Jan 09, 2019 Chief Complaint The patient is a 58-year-old female admitted with a reason for visit of Fever,Metastatic Breast Cancer. Source: Patient, Family, RN/MD, Old records Exam Limitations: No limitations Severity: Severe History of Present Illness 58 year old female with metastatic breast cancer with mets to liver and bones presented to the hospital for abdominal pain and confusion. Patient was found t be febrile to 102.2 which resolved spontaneously without any meds. On my interview the patient the pateint was not confused. She was alert oriented x 3 . She said that she started having severe abdominal pain today along with nausea. She took 1 extra pain meds this afternoon and after that family found her confused and brought her to the ED. Her pain is most intense at the right upper quadrant radiating to the back and spreading to all the quadrants of the abdomen, 10/10 in intensity dull aching and sometimes sharp and pleuritic in nature. Extremely painful to take deep breaths. Pain is associated with nausea and constipation. Patient had CT chest, CT abdomen pelvi and CT head but did not reveal any source of infection. Her urine is clean. I offered her lumber puncture but she refused. CT abdomen did show the following Known hepatic metastatic foci on prior contrast enhanced CT are not visible by noncontrast evaluation. Moderate fecal stasis and possible constipation. No ascites, focal inflammatory stranding, or adenopathy. She is admitted for pain control and evaluation of Fever and confusion. Home Medications Scheduled Alprazolam (Xanax) 0.25 Mg Tab, 0.25 MG PO QHS, (Reported) Escitalopram Oxalate (Lexapro) 10 Mg Tab, 10 MG PO DAILY, (Reported) Gabapentin (Neurontin) 100 Mg Cap, 200 MG PO TID, (Reported) Levothyroxine Sodium (Levothyroxine Sodium) 137 Mcg Tab, 88 MCG PO DAILY, (Reported) Methadone HCl (Methadone HCl) 5 Mg Tablet, 10 MG BID, (Reported) Ropinirole HCl (Ropinirole HCl) 1 Mg Tab, 1 MG PO QPM, (Reported) Scheduled PRN Cyclobenzaprine HCl (Cyclobenzaprine HCl) 5 Mg Tab, 5 MG PO TIDP PRN for muscle spasms Furosemide (Furosemide) 20 Mg Tab, 20 MG PO BID PRN for swelling, (Reported) Morphine Sulfate (Morphine Sulfate ER) 30 Mg Tablet.er, 45 MG PO BIDP PRN for pain Morphine Sulfate (Morphine Sulfate ER) 15 Mg Tablet.er, 15 MG PO BIDP PRN for pain take one tablet with the 30mg tab for a total dose of 45mg. Oxycodone Hcl (Oxycodone HCl) 15 Mg Tablet, 1 TAB PO Q3HP PRN for pain Pantoprazole Sodium (Protonix) 20 Mg Tab, 20 MG PO PRN PRN for GI UPSET, (Reported) Prochlorperazine Maleate (Prochlorperazine Maleate) 10 Mg Tab, 10 MG PO PRN PRN for NAUSEA Miscellaneous Medications Cannabidiol (Cbd Oil) Btl, (Reported) Allergies Coded Allergies: hydromorphone (Verified Adverse Reaction, Mild, Vomiting - IF IV PUSH, 01/08/19) meperidine (Verified Adverse Reaction, Mild, Vomiting - IF IV PUSH, 01/08/19) morphine (Verified Adverse Reaction, Mild, vomiting - IF IV PUSH, 01/08/19) Past Medical History Medical History METASTATIC BREAST CANCER TO LIVER AND BONES BREAST CA, T3N3 06/01; CHEMOTX; RADIATION TX 11/30 X 20 SESSIONS; NEUROPATHY SX FROM TAX[facility]; BONE SCAN, PET CT 06/02, 07/02 SHOWED ? SKULL METASTASIS. BONE BX POSITIVE FOR METASTATIC ADENOCA 09/03, ER+/CT NEG, HER2 NEG, MRI 12/01 SHOWED PROGRESSION OF METASTASIS; LIVER BX 06/03 SHOWED METASTASES TO LIVER HYPOTHYROIDISM CHRONIC ANXIETY DEPRESSION NSTEMI 1992, "CORONARY SPASM", NEG CARDIAC CATH ECHO 07/01: NORMAL, EF 55-60% RECTAL BLEEDING, ADMITTED 09/02, PRESUMED HEMORRHOIDAL CAROTID US 10/31: ESSENTIALLY NORMAL + JUAN, NO CLINICAL LUPUS Surgical History BILATERAL MASTECTOMY AND LEFT LYMPH, UR 04/01 GALL BLADDER 2007 CARDIAC CATH-- NEGATIVE 1992 CERVICAL FUSION 2014 CARPEL TUNNEL 2006 BREAST REDUCTION 2000 TONSILS A TEEN ENDOMETRIAL ABLASION 1996 PORT PLACED FOR CHEMO 07/01 COLONOSCOPY--NORMAL 2010 CRANIOTOMY 08/2017 Family History FATHER: , [place], DIAGNOSED WITH HYPERTENSION, HEART DISEASE MOTHER: , ESOPHAGEAL DISORDER SIBLINGS: BROTHER WITH HTN, STROKE, DIAGNOSED WITH HYPERTENSION,STROKE PATERNAL GRAND FATHER: OF STROKE AT 49, DIAGNOSED WITH STROKE MATERNAL GRAND MOTHER: 39 OF ? CANCER Social History * Smoker: Denies, former Smoker Alcohol: Denies Drugs: denies A-FIB/CHADSVASC A-FIB History Current/History of A-Fib/PAF?: No Review of Systems Constitutional: Reports: Fever, Malaise, Weakness, Fatigue Eyes: Denies: Pain, Vision change ENT: Denies: Head Aches, Ear Pain, Dysphagia Skin: Denies: Rash, Lesions, Breakdown Pulmonary: Reports: Pleuritic Chest Pain; Denies: Dyspnea, Cough Cardiovascular: Denies: Chest Pain, Palpitations, Orthopnea, Paroxysmal Noc. Dyspnea, Lt Headedness Gastrointestinal: Reports: Nausea, Abdominal Pain, Constipation Genitourinary: Denies: Dysuria, Frequency, Incontinence, Retention Hematologic: Denies: Bruising, Bleeding Excessively Musculoskeletal: Reports: Neck Pain, Back Pain, Muscle Pain, Spasms Neurological: Denies: Weakness, Numbness, Change in speech, Confusion Physical Examination General Exam: Positive: Alert, Cooperative, Severe Distress Eye Exam: Positive: PERRLA, Conjunctiva & lids normal, EOMI; Negative: Sclera icteric ENT Exam: Positive: Atraumatic, Mucous membr. moist/pink, Pharynx Normal Neck Exam: Positive: Supple, Other (no neck rigidity) Chest Exam: Positive: Clear to auscultation, Normal air movement Heart Exam: Positive: Rate Normal, Regular Rhythm, Normal S1, Normal S2; Negative: Murmurs, Rubs Abdomen Exam: Positive: BS Hypoactive, Tenderness (in all quadrants maximum in the right upper quadrant. ), Mass (No guarding or rigidity) Extremity Exam: Positive: Normal pulses; Negative: Clubbing, Cyanosis, Edema Skin Exam: Positive: Nl turgor and temperature; Negative: Breakdown, Lesion Neuro Exam: Positive: Normal Speech, Strength at 5/5 X4 ext, Normal Tone Psych Exam: Positive: Memory Intact, Oriented x 3 Vital Signs Vital Signs Date Time Temp Pulse Resp B/P (MAP) Pulse Ox O2 Delivery O2 Flow Rate FiO2 01/09/19 01:30 98.7 01/08/19 19:49 01/08/19 19:17 71 16 94 Room Air Laboratory Data Labs 24H Laboratory Tests 2 01/08/19 19:17: Immature Granulocyte % (Auto) 0.4, White Blood Count 8.2, Red Blood Count 3.25L, Hemoglobin 11.5L, Hematocrit 34.4L, Mean Corpuscular Volume 105.8H, Mean Corpuscular Hemoglobin 35.4H, Mean Corpuscular Hemoglobin Concent 33.4, Red Cell Distribution Width 13.2, Platelet Count 93L, Neutrophils (%) (Auto) 81.0H, Lymphocytes (%) (Auto) 9.4L, Monocytes (%) (Auto) 7.0H, Eosinophils (%) (Auto) 2.0, Basophils (%) (Auto) 0.2, Neutrophils # (Auto) 6.6, Lymphocytes # (Auto) 0.8L, Monocytes # (Auto) 0.6, Eosinophils # (Auto) 0.2, Basophils # (Auto) 0.0, Nucleated Red Blood Cells % (auto) 0.0, Immature Platelet Fraction 2.4, Anion Gap 8, Glomerular Filtration Rate > 60.0, Calcium Level 9.1, Aspartate Amino Transf (AST/SGOT) 56H, Alanine Aminotransferase (ALT/SGPT) 42, Alkaline Phosphatase 129H, Total Bilirubin 0.7, Direct Bilirubin 0.2, Total Protein 7.5, Albumin 3.8, Albumin/Globulin Ratio 1.03, Lipase 45L 01/08/19 20:25: Prothrombin Time 13.8, Prothromb Time International Ratio 1.09, Activated Partial Thromboplast Time 35.0, Ammonia 34H 01/08/19 20:47: Bedside Glucose (Misc Panel) 106 01/08/19 22:47: POC pH (Misc Panel) 7.395, POC Base Excess (Misc Panel) 1.0, POC Saturated Per cent O2 (Misc) 96, POC pO2 (Misc Panel) 86.0, POC pCO2 (Misc Panel) 43.0, POC HCO3 (Misc Panel) 26.4H, POC Total CO2 (Misc Panel) 28.0H 01/08/19 23:25: Urine Color YELLOW, Urine Appearance HAZY, Urine pH 7.0, Urine Specific [place] 1.009, Urine Protein NEGATIVE, Urine Glucose (UA) NEGATIVE, Urine Ketones NEGATIVE, Urine Blood NEGATIVE, Urine Nitrite NEGATIVE, Urine Bilirubin N EGATIVE, Urine Urobilinogen 2.0H, Urine Leukocyte Esterase NEGATIVE, Urine WBC (Auto) 1, Urine RBC (Auto) 4H, Urine Hyaline Casts (Auto) 0, Urine Bacteria (Auto) NEGATIVE, Urine Squamous Epithelial Cells 0, Urine Sperm (Auto) CBC/BMP Laboratory Tests 01/08/19 19:17 Red Blood Count 3.25 L, Mean Corpuscular Volume 105.8 H, Mean Corpuscular Hemoglobin 35.4 H, Mean Corpuscular Hemoglobin Concent 33.4, Red Cell Distribution Width 13.2, Neutrophils (%) (Auto) 81.0 H, Lymphocytes (%) (Auto) 9.4 L, Monocytes (%) (Auto) 7.0 H, Eosinophils (%) (Auto) 2.0, Basophils (%) (Auto) 0.2, Neutrophils # (Auto) 6.6, Lymphocytes # (Auto) 0.8 L, Monocytes # (Auto) 0.6, Eosinophils # (Auto) 0.2, Basophils # (Auto) 0.0 Microbiology Microbiology 01/08/19 Blood Culture, Received Pending 01/08/19 Blood Culture, Received Pending Assessment/Plan Metabolic encephalopathy possibly due to a combination of opiates and fever No neck stiffness But still meningitis/ encephalitis is a possibility patient refused LP. Fever source of any infection not found yet patient refused LP. 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 Metastatic breast cancer s/p bilateral mastectomy, CT, RT, hormone therapy. Last Chemo in september 2018. Talking to palliative care. Constipation aggressive bowel regimen Chemotherapy related neuropathy continue gabapentin Thrombocytopenia probably chemotherapy related. no heparin Plan / VTE VTE Prophylaxis Ordered?: Yes HUGO GIFFORD MD Jan 09, 2019 03:00
[2019-01-09] MEDS: PIPERACILLIN/TAZOBACTAM SOD 3.375 GM in D5W MINI-BAG PLUS 50 ML IV SCH ×4 (03:23→20:25)
[2019-01-09] MEDS: D5W/0.9% SODIUM CHLORIDE 1,000 ML IV SCH ×2 (03:23→09:08)
[2019-01-09] MEDS ORDERED: METHADONE 5 MG TAB (S0109) PO SCH (06:00)
[2019-01-09] MEDS: oxyCODONE 5MG TAB PO PRN ×3 (06:06→20:27)
[2019-01-09] MEDS: LEVOTHYROXINE 88MCG TABLET (0.088 MG) PO SCH (06:07)
[2019-01-09] MEDS ORDERED: PILL CUTTER 1 EACH XX PRN (06:15)
[2019-01-09 06:37] LABS: BASO % 0.3 % (0.0-1.0); EOS # 0.1 10^3/uL (0.0-0.50); HEMATOCRIT 32.6 % (36.0-47.0); HEMOGLOBIN 10.9 g/dl (12.0-15.5); LYMPH # 0.9 10^3/uL (1.5-4.5); LYMPH % 12.6 % (24.0-44.0); MEAN CORPUSCULAR HGB CONC 33.4 g/dl (32.0-36.5); MEAN CORPUSCULAR VOLUME 104.8 fl (80.0-96.0); MONO # 0.6 10^3/uL (0.0-0.8); NEUTROPHILS # 5.2 10^3/uL (1.8-7.7); NEUTROPHILS % 75.7 % (36.0-66.0); RED BLOOD COUNT 3.11 10^6/uL (4.00-5.40); WHITE BLOOD COUNT 6.9 10^3/uL (4.0-10.0)
[2019-01-09 06:50] LABS: PLATELET COUNT, AUTOMATED 98 10^3/uL (150-450)
[2019-01-09 06:54] LABS: BLOOD UREA NITROGEN 11 MG/DL (7-18); CALCIUM LEVEL 8.7 MG/DL (8.8-10.2); CARBON DIOXIDE LEVEL 26 MEQ/L (21-32); CHLORIDE LEVEL 100 MEQ/L (98-107); CREATININE FOR GFR 0.89 MG/DL (0.55-1.30); GLOMERULAR FILTRATION RATE > 60.0 (>45); GLUCOSE, FASTING 113 MG/DL (70-100); POTASSIUM SERUM 3.8 MEQ/L (3.5-5.1); SODIUM LEVEL 136 MEQ/L (136-145)
[2019-01-09] MEDS ORDERED: HYDROmorphone 2 MG TAB PO ONE (08:30)
[2019-01-09] MEDS ORDERED: PROMETHAZINE INJ 25 MG/ML VIAL (J2550) IV PRN (08:45)
[2019-01-09] MEDS: PANTOPRAZOLE 40MG INJ (PROTONIX) (C9113) IV SCH (08:52)
[2019-01-09] MEDS: GABAPENTIN 100 MG CAP PO SCH ×2 (08:52→13:57)
[2019-01-09] MEDS: SENOKOT S TAB PO SCH ×2 (08:52→20:26)
[2019-01-09] MEDS ORDERED: METHADONE 10 MG TAB (S0109) PO SCH (09:00)
[2019-01-09] MEDS ORDERED: GABAPENTIN 100 MG CAP PO SCH (09:00)
[2019-01-09] MEDS ORDERED: MORPHINE 15 MG SA TAB PO SCH (09:00)
[2019-01-09] MEDS ORDERED: ENOXAPARIN 40 MG/0.4 ML SYRINGE (J1650) SC SCH (09:00)
--- NOTE | 2019-01-09 11:22 | IPNPDOC ---
Subjective Date Seen The patient was seen on 01/09/19. Subjective Chief Complaint/HPI persistent pain, especially abdomen Constitutional: Denies: Chills ENT: Denies: Head Aches Pulmonary: Reports: Dyspnea (hurts to take deep breath) Cardiovascular: Denies: Palpitations Gastrointestinal: Reports: Nausea (in response to IV dilaudid) Genitourinary: Denies: Dysuria Hematologic: Denies: Bruising Neurological: Reports: Other Symptoms (hx neuropathy from chemo) Objective Physical Examination General Exam: Positive: Alert, Cooperative, Severe Distress Eye Exam: Positive: PERRLA, Conjunctiva & lids normal, EOMI; Negative: Sclera icteric ENT Exam: Positive: Atraumatic, Mucous membr. moist/pink, Pharynx Normal Neck Exam: Positive: Supple, Other (no neck rigidity) Chest Exam: Positive: Clear to auscultation, Normal air movement Heart Exam: Positive: Rate Normal, Regular Rhythm, Normal S1, Normal S2; Negative: Murmurs, Rubs Abdomen Exam: Positive: BS Hypoactive, Tenderness (in all quadrants maximum in the right upper quadrant. ), Mass (No guarding or rigidity) Extremity Exam: Positive: Normal pulses; Negative: Clubbing, Cyanosis, Edema Skin Exam: Positive: Nl turgor and temperature; Negative: Breakdown, Lesion Neuro Exam: Positive: Normal Speech, Strength at 5/5 X4 ext, Normal Tone Psych Exam: Positive: Memory Intact, Oriented x 3, Other Assessment /Plan Problems (1) Abdominal pain Status: Chronic Response to Treatment: Worse Problem Text: chronic pain, worse yesterday triggering admission. nausea with IV dilaudid. was maintained on usual doses of narcotics w/o increase, likely not increased on admission due to confusion and sleepiness. she is not confused today, but is a bit sleepy. she is experiencing inadequate pain control and increased drowsiness from current med combination. may request pain consult but will review with her medical oncologist, Dr. Desiree barone. (2) Metastatic breast cancer Status: Chronic Response to Treatment: Worse Problem Text: ER pos, [place] neg/ HER neg tumor with mets to liver, bone, Dr. Ramírez is her med onc specialist. (3) Fever Status: Acute Problem Text: no focus for fever identified but at risk for atelectasis and associated pneumonia due to pain related hypoventilation. fever could also be direct effect of tumor mets in liver. cultured, on Zosyn. (4) Adult onset hypothyroidism Status: Chronic Response to Treatment: Stable Plan/VTE VTE Prophylaxis Ordered?: Yes VTE Exclusion Pharmacological: Thrombocytopenia VS, I&O, 24H, Fishbone Vital Signs/I&O Vital Signs Date Time Temp Pulse Resp B/P (MAP) Pulse Ox O2 Delivery O2 Flow Rate FiO2 01/09/19 09:21 97.6 87 18 114/55 92 01/09/19 07:02 Room Air I&O- Last 24 Hours up to 6 AM 01/09/19 06:00 Intake Total 240 ml Output Total 300 ml Balance -60 ml Laboratory Data 24H LABS Laboratory Tests 2 01/08/19 19:17: Immature Granulocyte % (Auto) 0.4, White Blood Count 8.2, Red Blood Count 3.25L, Hemoglobin 11.5L, Hematocrit 34.4L, Mean Corpuscular Volume 105.8H, Mean Corpuscular Hemoglobin 35.4H, Mean Corpuscular Hemoglobin Concent 33.4, Red Cell Distribution Width 13.2, Platelet Count 93L, Neutrophils (%) (Auto) 81.0H, Lymphocytes (%) (Auto) 9.4L, Monocytes (%) (Auto) 7.0H, Eosinophils (%) (Auto) 2.0, Basophils (%) (Auto) 0.2, Neutrophils # (Auto) 6.6, Lymphocytes # (Auto) 0.8L, Monocytes # (Auto) 0.6, Eosinophils # (Auto) 0.2, Basophils # (Auto) 0.0, Nucleated Red Blood Cells % (auto) 0.0, Immature Platelet Fraction 2.4, Anion Gap 8, Glomerular Filtration Rate > 60.0, Calcium Level 9.1, Aspartate Amino Transf (AST/SGOT) 56H, Alanine Aminotransferase (ALT/SGPT) 42, Alkaline Phosphatase 129H, Total Bilirubin 0.7, Direct Bilirubin 0.2, Total Protein 7.5, Albumin 3.8, Albumin/Globulin Ratio 1.03, Lipase 45L 01/08/19 20:25: Prothrombin Time 13.8, Prothromb Time International Ratio 1.09, Activated Partial Thromboplast Time 35.0, Ammonia 34H 01/08/19 20:47: Bedside Glucose (Misc Panel) 106 01/08/19 22:47: POC pH (Misc Panel) 7.395, POC Base Excess (Misc Panel) 1.0, POC Saturated Percent O2 (Misc) 96, POC pO2 (Misc Panel) 86.0, POC pCO2 (Misc Panel) 43.0, POC HCO3 (Misc Panel) 26.4H, POC Total CO2 (Misc Panel) 28.0H 01/08/19 23:25: Urine Color YELLOW, Urine Appearance HAZY, Urine pH 7.0, Urine Specific [place] 1.009, Urine Protein NEGATIVE, Urine Glucose (UA) NEGATIVE, Urine Ketones NEGATIVE, Urine Blood NEGATIVE, Urine Nitrite NEGATIVE, Urine Bilirubin NEGATIVE, Urine Urobilinogen 2.0H, Urine Leukocyte Esterase NEGATIVE, Urine WBC (Auto) 1, Urine RBC (Auto) 4H, Urine Hyaline Casts (Auto) 0, Urine Bacteria (Auto) NEGATIVE, Urine Squamous Epithelial Cells 0, Urine Sperm (Auto) 01/09/19 06:15: Immature Granulocyte % (Auto) 0.4, White Blood Count 6.9, Red Blood Count 3.11L, Hemoglobin 10.9L, Hematocrit 32.6L, Mean Corpuscular Volume 104.8H, Mean Corpuscular Hemoglobin 35.0H, Mean Corpuscular Hemoglobin Concent 33.4, Red Cell Distribution Width 13.3, Platelet Count 98L, Neutrophils (%) (Auto) 75.7H, Lymphocytes (%) (Auto) 12.6L, Monocytes (%) (Auto) 9.0H, Eosinophils (%) (Auto) 2.0, Basophils (%) (Auto) 0.3, Neutrophils # (Auto) 5.2, Lymphocytes # (Auto) 0.9L, Monocytes # (Auto) 0.6, Eosinophils # (Auto) 0.1, Basophils # (Auto) 0.0, Nucleated Red Blood Cells % (auto) 0.0, Anion Gap 10, Glomerular Filtration Rate > 60.0, Blood Urea Nitrogen 11, Creatinine 0.89, Sodium Level 136, Potassium Level 3.8, Chloride Level 100, Carbon Dioxide Level 26, Calcium Level 8.7L CBC/BMP Laboratory Tests 01/08/19 19:17 Red Blood Count 3.25 L, Mean Corpuscular Volume 105.8 H, Mean Corpuscular Hemoglobin 35.4 H, Mean Corpuscular Hemoglobin Concent 33.4, Red Cell Distribution Width 13.2, Neutrophils (%) (Auto) 81.0 H, Lymphocytes (%) (Auto) 9.4 L, Monocytes (%) (Auto) 7.0 H, Eosinophils (%) (Auto) 2.0, Basophils (%) (Auto) 0.2, Neutrophils # (Auto) 6.6, Lymphocytes # (Auto) 0.8 L, Monocytes # (Auto) 0.6, Eosinophils # (Auto) 0.2, Basophils # (Auto) 0.0 01/09/19 06:15 Red Blood Count 3.11 L, Mean Corpuscular Volume 104.8 H, Mean Corpuscular Hemoglobin 35.0 H, Mean Corpuscular Hemoglobin Concent 33.4, Red Cell Distribution Width 13.3, Neutrophils (%) (Auto) 75.7 H, Lymphocytes (%) (Auto) 12.6 L, Monocytes (%) (Auto) 9.0 H, Eosinophils (%) (Auto) 2.0, Basophils (%) (Auto) 0.3, Neutrophils # (Auto) 5.2, Lymphocytes # (Auto) 0.9 L, Monocytes # (Auto) 0.6, Eosinophils # (Auto) 0.1, Basophils # (Auto) 0.0, Calcium Level 8.7 L Microbiology Microbiology 01/08/19 Blood Culture, Received Pending 01/08/19 Blood Culture, Received Pending 01/09/19 Respiratory Virus Panel (PCR) ([facility]) - Final, Complete Jak Lee MD Jan 09, 2019 11:22
[2019-01-09] MEDS: ALPRAZolam 0.25 MG TAB PO PRN ×2 (12:12→20:30)
[2019-01-09] MEDS: METHADONE 5 MG TAB (S0109) PO SCH ×2 (12:24→18:05)
[2019-01-09] MEDS: LACTULOSE 20 GM/30 ML SYRUP UD PO SCH ×3 (13:56→20:25)
[2019-01-09] MEDS ORDERED: ALPRAZolam 0.25 MG TAB PO SCH (21:00)
[2019-01-09] MEDS ORDERED: GABAPENTIN 400 MG CAP PO SCH (21:00)
[2019-01-09] MEDS ORDERED: rOPINIRole 1MG TAB PO SCH (21:00)
[2019-01-10] MEDS: METHADONE 5 MG TAB (S0109) PO SCH ×3 (00:07→11:58)
[2019-01-10] MEDS: PIPERACILLIN/TAZOBACTAM SOD 3.375 GM in D5W MINI-BAG PLUS 50 ML IV SCH ×2 (02:54→08:48)
[2019-01-10] MEDS: oxyCODONE 5MG TAB PO PRN ×2 (02:54→12:00)
[2019-01-10] MEDS: LEVOTHYROXINE 88MCG TABLET (0.088 MG) PO SCH (05:52)
[2019-01-10 06:00] VITALS: BP 105/57
[2019-01-10 06:39] LABS: BASO % 0.3 % (0.0-1.0); EOS # 0.2 10^3/uL (0.0-0.50); EOS % 2.7 % (0.0-3.0); HEMATOCRIT 33.1 % (36.0-47.0); HEMOGLOBIN 11.1 g/dl (12.0-15.5); LYMPH % 14.5 % (24.0-44.0); MEAN CORPUSCULAR HEMOGLOBIN 35.9 pg (27.0-33.0); MEAN CORPUSCULAR HGB CONC 33.5 g/dl (32.0-36.5); MEAN CORPUSCULAR VOLUME 107.1 fl (80.0-96.0); MONO # 0.5 10^3/uL (0.0-0.8); MONO % 7.3 % (0.0-5.0); NEUTROPHILS # 4.9 10^3/uL (1.8-7.7); NEUTROPHILS % 74.7 % (36.0-66.0); RED BLOOD COUNT 3.09 10^6/uL (4.00-5.40); WHITE BLOOD COUNT 6.6 10^3/uL (4.0-10.0)
[2019-01-10 06:43] LABS: PLATELET COUNT, AUTOMATED 92 10^3/uL (150-450)
[2019-01-10 06:57] LABS: BLOOD UREA NITROGEN 12 MG/DL (7-18); CALCIUM LEVEL 8.7 MG/DL (8.8-10.2); CARBON DIOXIDE LEVEL 30 MEQ/L (21-32); CHLORIDE LEVEL 103 MEQ/L (98-107); CREATININE FOR GFR 0.99 MG/DL (0.55-1.30); GLOMERULAR FILTRATION RATE > 60.0 (>45); GLUCOSE, FASTING 110 MG/DL (70-100); POTASSIUM SERUM 3.8 MEQ/L (3.5-5.1); SODIUM LEVEL 138 MEQ/L (136-145)
[2019-01-10] MEDS: SENOKOT S TAB PO SCH (08:47)
[2019-01-10] MEDS: GABAPENTIN 100 MG CAP PO SCH ×2 (08:47→14:27)
[2019-01-10] MEDS: LACTULOSE 20 GM/30 ML SYRUP UD PO SCH (08:48)
[2019-01-10] MEDS: PANTOPRAZOLE 40MG INJ (PROTONIX) (C9113) IV SCH (08:48)
[2019-01-10 10:35] LABS: FOLATE 7.9 NG/ML (>5.4)
[2019-01-10 10:36] LABS: VITAMIN B12 LEVEL 378 PG/ML (247-911)
[2019-01-10] MEDS ORDERED: XANA0.25 PO (13:46)
[2019-01-10] MEDS ORDERED: LACT10SO29 PO (14:01)
--- NOTE | 2019-01-11 00:02 | ECGEPIP ---
[facility] Test Date: 2019-01-09 Pat Name: JONATHAN FARRELL Department: Room: [place] [address] Gender: Female Cryptographer: DAYANA : 1960 Requested By: Jak Garcia Order Number: [id number] Reading MD: Blayne Jones Measurements Intervals [place] Rate: 65 P: 20 NC: 192 QRS: 3 QRSD: 84 T: QT: 419 QTc: 438 Interpretive Statements SINUS RHYTHM No remarkable changes but slower heart rate Last tracing on 06/09/2018 AT 12:40 P.M. Electronically Signed on 01-11-2019 0:02:27 EDT by Blayne Jones
--- NOTE | 2019-01-11 08:39 | DSES ---
DATE OF ADMISSION: 01/09/2019 DATE OF DISCHARGE: 01/10/2019 REASON FOR ADMISSION: Patient presented to emergency department (ED) with complaint of increasing abdominal pain. She had a known metastatic breast cancer, estrogen receptor positive, progesterone receptor negative, HER negative widely metastatic to liver and bone. The tumor has proven recalcitrant to chemotherapy. I reviewed her situtation with Dr. Ramírez who agreed that patient is at the end of any utility for interventional approach to therapy. She has been seeing a literacy specialist in the community and consultation was kindly provided in the hospital. Chronic medications were adjusted. Pain control improved and anxiety control improved with adjustment of her Alprazolam dose from at bedtime only to three times a day 0.25 mg. Her narcotic pain medication methadone was increased from 7.5 mg every 8 hours to 7.5 mg every 6 hours at recommendation of her literacy specialist and oxycodone 15 mg every 6 hours immediately release was continued. Imaging studies done during hospital stay included abdomen and pelvis CT which showed evidence of fecal stasis. We added lactulose 15 mg by mouth twice a day which the patient found helpful. There was some evidence of pulmonary vascular congestion, but the patient had no symptoms of dyspnea or cough. She has previously demonstrated metastatic foci on previous imaging studies, this are not visible on the noncontrast study. Her laboratory study demonstrated mild elevation of ammonia at 34, AST was 56, bilirubin was not elevated at 0.7, her albumin was surprisingly good at 3.8, vitamin B12 and folic acid were measured at 378 and 7.9 respectively because of a finding of macrocystic anemia, hemoglobin 11.1 with MCV of 107.1, alkaline phosphatase was elevated at 129. ASSESSMENT: Intractable pain due to expansion of hepatic metastatic disease. Pain reference to the upper right quadrant primarily. Metastatic breast cancer ER positive, CT negative, HER negative, widely metastatic to liver and bone, macrocystic anemia. Pyridoxal phosphate level is pending, but B12 and folic acid levels were normal. Chronic pain related to metastatic cancer. PLAN: Discharge to community. She will followup with her palliative care provider and it looks like she will transition fully to hospice soon after discharge. DISCHARGE MEDICATIONS: As listed above, but to reiterate: Xanax 0.25 mg by mouth three times a day as needed anxiety, spironolactone 15 mg by mouth daily, ropinirole 1 mg at bedtime, prochlorperazine 10 mg by mouth three times a day, pantoprazole 40 mg by mouth daily, oxycodone 15 mg every 6 hours as needed, methadone 7.5 mg every 8 hours, levothyroxine 88 mcg daily, gabapentin 400 mg at bedtime, 200 mg twice a day, escitalopram 10 mg by mouth daily, cyclobenzaprine 5 mg by mouth three times a day, lactulose 15 millimeters by mouth twice a day which the patient can adjust up and down. Her methadone had been 7.5 mg every 8 hours at the time of admission and will be discharged on 7.5 mg every 6 hours, a new prescription was not created since she should have adequate supply. Oxycodone 15 mg by mouth every 6 hours will continue, this agent was not renewed since she does have what should be adequate supply over the next few days she will be due for renewal next week. A new prescription is written for Alprazolam because of the dose increase noted.
== END 2019-01-10 14:50 | disposition home or self-care (01) | DRG 861 ==
LOC: M ED 18:34 → M ED INP 01-09 01:38 → M PCU 01-09 07:11 → M MS5PR 01-09 18:28
PROVIDERS: ADMIT Internal Medicine Nephrology; ATTEND Family Medicine
DX: G89.3 Neoplasm related pain (acute) (chronic) (principal); G93.41 Metabolic encephalopathy; C78.7 Secondary malignant neoplasm of liver and intrahepatic bile duct; C79.51 Secondary malignant neoplasm of bone; D69.59 Other secondary thrombocytopenia; G62.0 Drug-induced polyneuropathy; T45.1X5A Adverse effect of antineoplastic and immunosuppressive drugs, initial encounter; R50.9 Fever, unspecified; R10.11 Right upper quadrant pain; F41.9 Anxiety disorder, unspecified; Z79.899 Other long term (current) drug therapy; Z88.5 Allergy status to narcotic agent; E03.9 Hypothyroidism, unspecified; Z85.3 Personal history of malignant neoplasm of breast; F32.9 Major depressive disorder, single episode, unspecified; I25.2 Old myocardial infarction; Z90.11 Acquired absence of right breast and nipple; Z90.12 Acquired absence of left breast and nipple; Z95.2 Presence of prosthetic heart valve; Z87.891 Personal history of nicotine dependence; K59.00 Constipation, unspecified

== ENCOUNTER → 2019-01-15 | Outpatient (CLI) | payer BC ==
[~2019-01-15] MED LIST changes: -CALC12504 PO; +CALC500T61 PO; +GABA-1171 PO; +LACT10SO29 PO; +LIDO5OIN19 EXT; +METH5TA; +METH5TA PO; +PANT-23 PO; +SPIR-10 PO; +SYNT88TA2 PO
[2019-01-15 15:21] LABS: BASO % 0.4 % (0.0-1.0); EOS # 0.2 10^3/uL (0.0-0.50); EOS % 4.3 % (0.0-3.0); HEMATOCRIT 33.7 % (36.0-47.0); LYMPH % 18.2 % (24.0-44.0); MEAN CORPUSCULAR HEMOGLOBIN 34.5 pg (27.0-33.0); MEAN CORPUSCULAR HGB CONC 32.6 g/dl (32.0-36.5); MEAN CORPUSCULAR VOLUME 105.6 fl (80.0-96.0); MONO # 0.4 10^3/uL (0.0-0.8); MONO % 7.5 % (0.0-5.0); NEUTROPHILS # 3.7 10^3/uL (1.8-7.7); RED BLOOD COUNT 3.19 10^6/uL (4.00-5.40); WHITE BLOOD COUNT 5.3 10^3/uL (4.0-10.0)
[2019-01-15 15:24] LABS: PLATELET COUNT, AUTOMATED 94 10^3/uL (150-450)
== END ==
LOC: M LAB 14:17
PROVIDERS: ATTEND Family Medicine
DX: R78.81 Bacteremia (principal)